=== PATIENT | male | born 1980 | race Caucasian/White ===

== ENCOUNTER 2023-06-16 18:11 | Emergency (ER) | payer OTHER, SELFPAY ==
[2023-06-16 18:15] VITALS: PULSE 104; RESP 18; TEMP 36.9; O2SAT 96; BMI 29.5
--- NOTE | 2023-06-16 18:23 | XR_ITS ---
[facility] [place] [id number] Patient Name: CIARAN HATCH MRN: [id number] date: 1980 Sex: M Assigned Patient Location: ER Current Patient Location: ED.MAIN Accession/Order Number: [id number] Exam Date: 06/16/2023 18:35 Report Date: 06/16/2023 19:27 At the request of: HODAN STEELE Procedure: XR finger RT min 2V STUDY: XR finger RT min 2V, [id number] HISTORY: laceration COMPARISON: None FINDINGS: No acute fracture, dislocation, or suspicious osseous lesion. No radiopaque foreign body. XR/XR finger RT min 2V IMPRESSION: No acute osseous abnormality. Electronically authenticated by: MIKEY BARLOW Date: 06/16/2023 19:27
--- NOTE | 2023-06-16 18:24 | ED_ITS ---
Documented by User: DUSTIN Benoit 06/16/23 20:01 HPI - Wound/Laceration General Chief Complaint: Wound/Laceration Stated Complaint: HAND LACERATION Time Seen by Provider: 06/16/23 18:13 Source: patient Mode of arrival: walk-in Limitations: no limitations History of Present Illness HPI narrative: patient is a 42-year-old male who presents the emergency department for the evaluation of a laceration of the right hand over the 1st MCP joint. Just prior to arrival, patient was working on his camper when he lacerated the dorsum of the joint. Bleeding is well-controlled at this time. He did sustain an abrasion to the left hand. He is left-hand dominant. Unknown last tetanus. No other associated injuries. Related Data Allergies Allergy/AdvReac Type Severity Reaction Status Date / Time hydrocodone Allergy Mild Hives Verified 06/16/23 18:17 antihistamines Allergy Mild Uncoded 06/16/23 18:17 Review of Systems ROS Constitutional Denies: fever or chills Respiratory Denies: shortness of breath Gastrointestinal Denies: vomiting Musculoskeletal Denies: back pain Integumentary/Breast Denies: rash Endocrine Denies: excessive urination Hematologic/Lymphatic Denies: easy bruising Exam Narrative Exam Narrative: Gen.: Awake, alert, in no distress Head: Normocephalic, atraumatic ENT: Moist mucous membranes Respiratory: No respiratory distress Extremities: Moves extremities equally, abrasion noted to the dorsum of the left hand with no deep laceration, right 1st MCP joint with a 1.5 cm laceration that is well approximated extending proximally to distally over the 1st MCP joint/dorsal aspect of the hand. Normal flexion and extension at the MCP and IP joints. No subcutaneous tissue visualized, no active bleeding Psych: Normal mood and affect Neuro: No focal neuro deficit Skin: Warm, dry Constitutional Vital Signs, click to edit/add: Last Vital Signs Temp 98.5 F 06/16/23 18:15 Pulse 104 H 06/16/23 18:15 Resp 18 06/16/23 18:15 Pulse Ox 96 06/16/23 18:15 O2 Del Method Room Air 06/16/23 18:15 Course Vital Signs Vital signs: Vital Signs Temperature 98.5 F 06/16/23 18:15 Pulse Rate 104 H 06/16/23 18:15 Respiratory Rate 18 06/16/23 18:15 Pulse Oximetry 96 06/16/23 18:15 Oxygen Delivery Method Room Air 06/16/23 18:15 Temperature 98.5 F 06/16/23 18:15 Pulse Rate 104 H 06/16/23 18:15 Respiratory Rate 18 06/16/23 18:15 Pulse Oximetry 96 06/16/23 18:15 Oxygen Delivery Method Room Air 06/16/23 18:15 MDM - Wound/Laceration MDM Narrative Medical decision making narrative: x-rays of the finger with no evidence of acute abnormalities. Laceration was repaired without difficulty to the right hand, please see procedure note for details. Sutures removed in 8-10 days with PCP. Abrasion to the left hand was cleansed and dressed with bacitracin, Band-Aid. return to the Emergency Room if symptoms change or worsen Laceration repair: Done under sterile conditions. The use of Shur-Clens prep the area. Local injection with lidocaine 1% was used, approximately 3 cc. The wound was irrigated copiously with normal saline. The wound was explored there was no evidence of foreign material. The laceration was approximated with 4-0 nylon. 2 simple interrupted sutures were placed. Patient tolerated the procedure well. The patient was neurovascularly intact post. the patient had bacitracin applied to the laceration and a dry sterile dressing was place. The patient will need to follow-up in the next 8-10 days for removal Discharge Plan Discharge Chief Complaint: Wound/Laceration Clinical Impression: Abrasion of left hand, Laceration of right thumb Patient Disposition: Home, Self-Care Time of Disposition Decision: 19:56 Condition: Good Instructions: Laceration (ED), Abrasion (ED) Additional Instructions: Keep sutures clean with antibiotic ointment and dressing; sutures removed in 8-10 days with PCP Stand Alone Forms: Portal Instructions Referrals: ELROY VIVAS [Primary Care Provider] - 1 week Discharge Date/Time: 06/16/23 20:21 Documented by User: Augusto Toure MD 06/27/23 16:00 HPI - Wound/Laceration General Chief Complaint: Wound/Laceration Stated Complaint: HAND LACERATION Time Seen by Provider: 06/16/23 18:13 Related Data Allergies Allergy/AdvReac Type Severity Reaction Status Date / Time hydrocodone Allergy Mild Hives Verified 06/16/23 18:17 antihistamines Allergy Mild Uncoded 06/16/23 18:17 Exam Constitutional Vital Signs, click to edit/add: Last Vital Signs Temp 98.5 F 06/16/23 18:15 Pulse 104 H 06/16/23 18:15 Resp 18 06/16/23 18:15 Pulse Ox 96 06/16/23 18:15 O2 Del Method Room Air 06/16/23 18:15 Course Vital Signs Vital signs: Vital Signs Temperature 98.5 F 06/16/23 18:15 Pulse Rate 104 H 06/16/23 18:15 Respiratory Rate 18 06/16/23 18:15 Pulse Oximetry 96 06/16/23 18:15 Oxygen Delivery Method Room Air 06/16/23 18:15 Temperature 98.5 F 06/16/23 18:15 Pulse Rate 104 H 06/16/23 18:15 Respiratory Rate 18 06/16/23 18:15 Pulse Oximetry 96 06/16/23 18:15 Oxygen Delivery Method Room Air 06/16/23 18:15 MDM - Wound/Laceration MDM Narrative Medical decision making narrative: x-rays of the finger with no evidence of acute abnormalities. Laceration was repaired without difficulty to the right hand, please see procedure note for details. Sutures removed in 8-10 days with PCP. Abrasion to the left hand was cleansed and dressed with bacitracin, Band-Aid. return to the Emergency Room if symptoms change or worsen Laceration repair: Done under sterile conditions. The use of Shur-Clens prep the area. Local injection with lidocaine 1% was used, approximately 3 cc. The wound was irrigated copiously with normal saline. The wound was explored there was no evidence of foreign material. The laceration was approximated with 4-0 nylon. 2 simple interrupted sutures were placed. Patient tolerated the procedure well. The patient was neurovascularly intact post. the patient had bacitracin applied to the laceration and a dry sterile dressing was place. The patient will need to follow-up in the next 8-10 days for removal I, Dr Toure, have reviewed the above progress note and course of action in the ER; agree with the above. I have personally seen and evaluated this patient, gone o patricia history and physical, and discussed disposition and treatment plan with the patient. Discharge Plan Discharge Chief Complaint: Wound/Laceration Clinical Impression: Abrasion of left hand, Laceration of right thumb Patient Disposition: Home, Self-Care Time of Disposition Decision: 19:56 Condition: Good Instructions: Laceration (ED), Abrasion (ED) Additional Instructions: Keep sutures clean with antibiotic ointment and dressing; sutures removed in 8- 10 days with PCP Stand Alone Forms: Portal Instructions Referrals: ELROY VIVAS [Primary Care Provider] - 1 week Discharge Date/Time: 06/16/23 20:21
--- NOTE | 2023-06-16 18:27 | PC.NURSE ---
pt presents to [facility] pt states that he was at home working on his camper and cut himself with a rod piece of metal. pt has small 1 in laceration to right thumb and small abrasion to left thumb. pt wrapped hand in bandage. pt cleaned up with hibicleanse and water on arrival. pt now soaking right hand. bleeding under control at this time.
[2023-06-16] MEDS: ADACEL DIPH,PERTUSS(ACELL),TET VAC/PF 0.5 ML ADULT SYRINGE IM (18:46)
[2023-06-16] MEDS: BACITRACIN 0.9 GM PACKET 1 PACKET TOPICAL ×2 (18:47→20:20)
== END 2023-06-16 20:21 | disposition home or self-care (01) ==
PROVIDERS: Emergency Provider Emergency Medicine; PCP Family Medicine
DX: S61.011A Laceration without foreign body of right thumb without damage to nail, initial encounter (principal); S60.512A Abrasion of left hand, initial encounter; Z23 Encounter for immunization; W26.8XXA Contact with other sharp object(s), not elsewhere classified, initial encounter
CPT/HCPCS: 12001; 73140; 90471; 90715; 99281

== ENCOUNTER 2024-09-06 14:58 | Emergency (ER) | payer OTHER, SELFPAY ==
[2024-09-06 14:59] VITALS: BP 170/100; PULSE 59; TEMP 36.6; O2SAT 98; BMI 28.7
--- NOTE | 2024-09-06 15:06 | ECG_ITS ---
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
--- NOTE | 2024-09-06 15:15 | ED_ITS ---
HPI HPI - General Adult General Chief complaint: Abdominal Pain Stated complaint: GENERAL WEAKNESS Time Seen by Provider: 09/06/24 15:00 Source: patient Mode of arrival: ambulance Limitations: no limitations History of Present Illness HPI narrative: 44-year-old male presents for nausea vomiting and abdominal pain. It began about 2:00 this morning. No hematemesis. The pain is severe and continuous. He reports she has had multiple hernia repairs and he has been taking Pepto- Bismol today. Related Data Previous Rx's ?Medication ?Instructions ?Recorded ondansetron 4 mg disintegrating 4 mg PO Q6H PRN nausea and 09/06/24 tablet vomiting #10 tabs Allergies Allergy/AdvReac Type Severity Reaction Status Date / Time hydrocodone Allergy Mild Hives Verified 09/06/24 15:04 antihistamines Allergy Mild Hives Uncoded 09/06/24 15:04 Opioid HPI Opioid Management Most Recent Opioid Data: No Data to Display Review of Systems ROS Narrative A ten point review of systems is negative except as noted above. PFSH PFSH Social History Little interest or pleasure in doing things: not at all Feeling down, depressed, or hopeless: not at all Exam Narrative Exam Narrative: Nurses note and vital signs reviewed and patient is not hypoxic. General: The patient is vomiting when I walk into the room. No respiratory distress. Skin: Warm, dry, no pallor noted. There is no rash noted. Head: Normocephalic, atraumatic Eye: Normal conjunctiva, no drainage Ears, Nose, Mouth, and Throat: oral mucosa is moist. Nares patent. Mouth without vesicles. Ear canals patent. Tm's without Erythema Cardiovascular: Regular Rate and Rhythm Respiratory: Patient is in no distress, no accessory muscle use, lungs are clear to auscultation, no wheezing, rales or rhonchi Back: non-tender, no CVA tenderness bilaterally to percussion. GI: Normal bowel sounds, mild diffuse tenderness on palpation. No distention. Musculoskeletal: The patient has no evidence of calf tenderness, no pitting edema, symmetrical pulses noted bilaterally Neurological: A&O, normal speech Psychiatric: Cooperative Constitutional Vital Signs, click to edit/add: Last Vital Signs Temp 98 F 09/06/24 14:59 Pulse 59 L 09/06/24 14:59 Resp 20 09/06/24 14:59 BP 170/100 H 09/06/24 14:59 Pulse Ox 98 09/06/24 14:59 O2 Del Method Room Air 09/06/24 14:59 Course Vital Signs Vital signs: Vital Signs Temperature 98 F 09/06/24 14:59 Pulse Rate 59 L 09/06/24 14:59 Respiratory Rate 20 09/06/24 14:59 Blood Pressure 170/100 H 09/06/24 14:59 Pulse Oximetry 98 09/06/24 14:59 Oxygen Delivery Method Room Air 09/06/24 14:59 Temperature 98 F 09/06/24 14:59 Pulse Rate 59 L 09/06/24 14:59 Respiratory Rate 20 09/06/24 14:59 Blood Pressure 170/100 H 09/06/24 14:59 Pulse Oximetry 98 09/06/24 14:59 Oxygen Delivery Method Room Air 09/06/24 14:59 Medical Decision Making MDM Narrative Medical decision making narrative: His workup including CT of the abdomen is negative. He feels much better now and is tolerating p.o. liquids and is discharged home with a prescription for Zofran. Treatment diagnosis and follow-up were discussed with the patient. Differential Diagnosis Differential Diagnosis: Gastroenteritis, dehydration, small bowel obstruction Lab Data Lab results reviewed: Yes I reviewed the patient's lab results Labs: Lab Results 09/06/24 Range/Units 15:10 WBC 16.3 H (4.0-11.0) 10^3/uL RBC 5.87 (4.70-6.10) 10^6/uL Hgb 16.0 (14.0-18.0) g/dL Hct 48.4 (42.0-54.0) % MCV 82.5 (80.0-94.0) fL MCH 27.3 (25.9-34.0) pg MCHC 33.1 (29.9-35.2) g/dL RDW 15.9 H (11.0-15.0) % Plt Count 313 (150-450) 10^3/uL MPV 10.0 (9.5-13.5) fL Neut % (Auto) 89.0 H (43.0-75.0) % Lymph % (Auto) 7.8 L (20.5-60.0) % [place] % (Auto) 2.6 (1.7-12.0) % Eos % (Auto) 0.0 L (0.9-7.0) % Baso % (Auto) 0.1 L (0.2-2.0) % Neut # (Auto) 14.5 H (1.4-6.5) 10^3/uL Lymph # (Auto) 1.3 (1.2-3.8) 10^3/uL [place] # (Auto) 0.4 (0.3-0.8) 10^3/uL Eos # (Auto) 0.0 (0.0-0.7) 10^3/uL Baso # (Auto) 0.0 (0.0-0.1) 10^3/uL Abs Immat Gran (auto) 0.08 H (0.00-0.03) 10^3/uL Imm/Tot Granulo (auto) 0.5 (0.0-0.5) % Sodium 143 (136-145) mmol/L Potassium 3.8 (3.5-5.1) mmol/L Chloride 105 (98-107) mmol/L Carbon Dioxide 24.7 (21.0-32.0) mmol/L Anion Gap 17.1 BUN 19.0 H (7.0-18.0) mg/dL Creatinine 1.37 H (0.70-1.30) mg/dL Est GFR ( Amer) >60 (>=60 mL/min/1.73m^2) Est GFR (Non-Af Amer) 57 L (>=60 mL/min/1.73m^2) BUN/Creatinine Ratio 13.9 Glucose 130 H (74-106) mg/dL Calcium 10.2 H (8.5-10.1) mg/dL Total Bilirubin 0.7 (0.2-1.0) mg/dL Direct Bilirubin 0.2 (0.0-0.2) mg/dL AST 23 (15-37) U/L ALT 48 (16-63) U/L Alkaline Phosphatase 132 H (46-116) U/L Total Protein 8.4 H (6.4-8.2) g/dL Albumin 4.4 (3.4-5.0) g/dL Globulin 4.0 g/dL Albumin/Globulin Ratio 1.1 Amylase 79 (25-115) U/L Lipase 65.0 (16.0-77.0) U/L Imaging Data CT scan - abdomen: Radiologist's impression: ITS Impressions Abdomen/Pelvis CT 09/06/24 16:08 IMPRESSION: No acute abnormality lower chest, abdomen or pelvis. Electronically authenticated by: BRENNEN TAMAYO Date: 09/06/2024 17:54 Discharge Plan Discharge Chief Complaint: Abdominal Pain Clinical Impression: Nausea and vomiting Patient Disposition: Home, Self-Care Time of Disposition Decision: 18:02 Condition: Good Mode of Transportation: Private Vehicle Prescriptions / Home Meds: New ondansetron 4 mg tablet,disintegrating 4 mg PO Q6H PRN (Reason: nausea and vomiting) Qty: 10 0RF Print Language: Khmer Instructions: Acute Nausea and Vomiting (ED) Referrals: ELROY VIVAS [Primary Care Provider] - 1 week
[2024-09-06] MEDS: 0.9 % SODIUM CHLORIDE 1,000 ML 1000 ML IV (15:22)
[2024-09-06] MEDS: ONDANSETRON PF 4 MG/2 ML VIAL IV ×2 (15:22→17:38)
[2024-09-06 15:26] LABS: Basophils Percent Auto 0.1 % (0.2-2.0); Hematocrit 48.4 % (42.0-54.0); Immature Granulocytes Abs Auto 0.08 10^3/uL (0.00-0.03); Immature Granulocytes Pct Auto 0.5 % (0.0-0.5); Lymphocytes Absolute Auto 1.3 10^3/uL (1.2-3.8); Lymphocytes Percent Auto 7.8 % (20.5-60.0); Mean Corpuscular HGB Conc 33.1 g/dL (29.9-35.2); Mean Corpuscular Hemoglobin 27.3 pg (25.9-34.0); Mean Corpuscular Volume 82.5 fL (80.0-94.0); Monocytes Absolute Auto 0.4 10^3/uL (0.3-0.8); Monocytes Percent Auto 2.6 % (1.7-12.0); Neutrophils Absolute Auto 14.5 10^3/uL (1.4-6.5); Platelet Count 313 10^3/uL (150-450); Red Blood Count 5.87 10^6/uL (4.70-6.10); Red Cell Distribution Width 15.9 % (11.0-15.0); White Blood Count 16.3 10^3/uL (4.0-11.0)
[2024-09-06 15:30] LABS: Anion Gap 17.1; BUN Creatinine Ratio 13.9; Calcium 10.2 mg/dL (8.5-10.1); Carbon Dioxide 24.7 mmol/L (21.0-32.0); Chloride 105 mmol/L (98-107); Estimated GFR (African America >60 (>=60 mL/min/1.73m^2); Estimated GFR (Non-African Ame 57 (>=60 mL/min/1.73m^2); Glucose 130 mg/dL (74-106); Potassium 3.8 mmol/L (3.5-5.1); Sodium 143 mmol/L (136-145)
[2024-09-06 15:35] LABS: Alanine Aminotransferase 48 U/L (16-63); Albumin Globulin Ratio 1.1; Albumin Level 4.4 g/dL (3.4-5.0); Alkaline Phosphatase 132 U/L (46-116); Amylase 79 U/L (25-115); Aspartate Amino Transferase 23 U/L (15-37); Bilirubin Direct 0.2 mg/dL (0.0-0.2); Bilirubin Total 0.7 mg/dL (0.2-1.0); Total Protein 8.4 g/dL (6.4-8.2)
--- NOTE | 2024-09-06 16:08 | CT_ITS ---
The [address] [place], [place] [address] Patient Name: CIARAN HATCH MRN: [id number] date: 1980 Sex: M Assigned Patient Location: ER Current Patient Location: ER Accession/Order Number: [id number] Exam Date: 09/06/2024 16:57 Report Date: 09/06/2024 17:54 At the request of: BUFFY LIGHT Procedure: CT abdomen pelvis w con EXAM: CT abdomen pelvis w con HISTORY: Abdominal pain, elevated WBC, vomiting COMPARISON: None. TECHNIQUE: CT abdomen pelvis with IV contrast 100 mL Omnipaque 300. Axial scans with reformatted coronal sagittal images. Individualized radiation dose reduction used for this exam. FINDINGS: Motion artifact. LOWER CHEST: Lung bases clear, no acute process. ABDOMEN: Diffusely heterogeneous liver with predominant low-density appearance consistent with fatty infiltration. Slightly higher density areas probably reflect areas of focal sparing. No definite mass. Normal-appearing fluid-filled gallbladder. No biliary dilatation. Adrenal glands, pancreas, spleen unremarkable. No ascites or free fluid. No adenopathy. Normal enhancement of aorta and branches. Normal venous enhancement. Kidneys unremarkable without mass or calcification. No hydronephrosis, normal ureters. No bowel dilatation wall thickening or edema. No evidence of ileus or obstruction. Decreased caliber of the left colon and sigmoid colon makes assessment for wall thickening/edema limited. Some high density material possibly barium noted in the right colon. Normal diameter appendix right lower quadrant without surrounding inflammation. Scattered diverticula without diverticulitis. Moderate gas and stool throughout colon. PELVIS no mass or adenopathy or free fluid. Normal-appearing bladder and delayed images demonstrate contrast in the dependent bladder. Normal pelvic ureters. MUSCULOSKELETAL: No suspicious bone lesion. Degenerative changes most prominent L4-5 and L5-S1. CT/CT abdomen pelvis w con IMPRESSION: No acute abnormality lower chest, abdomen or pelvis. Electronically authenticated by: BRENNEN TAMAYO Date: 09/06/2024 17:54
== END 2024-09-06 18:22 | disposition home or self-care (01) ==
PROVIDERS: Emergency Provider Emergency Medicine; PCP Family Medicine
DX: R11.2 Nausea with vomiting, unspecified (principal); R10.9 Unspecified abdominal pain
CPT/HCPCS: 36415; 74177; 80048; 80076; 82150; 83690; 85025; 93005; 96361; 96374; 96376; 99285; J2405; Q9967

== ENCOUNTER 2025-01-21 02:01 | Emergency (ER) | payer OTHER, SELFPAY ==
[2025-01-21 02:02] VITALS: BP 181/119; PULSE 84; TEMP 36.9; O2SAT 100; BMI 31.6
--- OUTSIDE RECORDS SUMMARY | 2025-01-21 02:08 | XMS_ITS | CCD ---
Author Organization [facility] Care Team Providers Care Pacu Nurse Name Role Phone Connor Pineda Primary Care Provider [phone] CAROLE DOMINGUEZ Attending Unavailable CAROLE DOMINGUEZ Referring Unavailable CONNOR PINEDA Primary Care Unavailable DENISE, DR CHAPIN Attending Unavailable DENISE, DR CHAPIN Consulting Unavailable DENISE, DR CHAPIN Admitting Unavailable EDWIN, DR ABBASI Primary Care Unavailable MD Connor Pineda Primary Care Provider MD Donato Jason Attending Provider MD Connor Pineda Primary Care Provider MD Donato Jason Attending Provider Juan C Johnson Unavailable Connor Pineda MD Primary Care Provider Peyman GARCIA, Mona Unavailable Dean GARCIA, Anitra R Unavailable [phone] Kimau W[employer]IT [employer] CONDITIONING MECHANIC, Mable A Unavailable [phone] MD Connor Pineda Primary Care Provider REJI Morley Attending Provider [phone] MD Anastacia Jesus Attending Provider [phone] REJI Morley Referring Provider MONA MORLEY Primary Care Physician [phone] Dean GARCIA Anitra R Unavailable [phone] Peyman [employer]IT AIR CONDITIONING MECHANIC, Mona Unavailable MD Connor Pineda Primary Care Provider [phone] REJI Morley Attending Provider [facility] Meenu Other Provider [phone] Edwin HARRIS, Connor Deleon Primary Care Provider [phone] Michell BAKER, Mona Unavailable Warchol AGRICULTURAL CROP FARM MANAGERMona M Unavailable [phone] EDWIN CONNOR ADRIENNE Primary Care Unavailable MARCELA MAYEN Attending Unavailable PINEDA, CONNOR ADRIENNE Primary Care Unavailable MARCELA MAYEN Referring Unavailable Son [facility] Bennett Unavailable [phone] Dina-Nossek AGRICULTURAL CROP FARM MANAGER-[facility], Kenney Horner Unavailable Connor Pineda MD Primary Care Provider [phone] Ormartin [facility], Meenu Attending Provider Ormartin, Meenu Admitting Unavailable Orzech, Meenu Attending Unavailable Pineda, Connor Primary Care Unavailable Warchol, Mona Attending Unavailable Warchol, Mona Admitting Unavailable Pineda, Connor Primary Care Unavailable Warchol, Mona Admitting Unavailable Warchol, Mona Attending Unavailable Pineda, Connor Primary Care Unavailable Orzech, Meenu Consulting Unavailable Asaad, Imad Admitting Unavailable Asaad, Imad Attending Unavailable Warchol, Mona Referring Unavailable Pineda, Connor Primary Care Unavailable WARCHOL, MONA Referring Unavailable Sukhjinder CLARK Attending Unavailable Orzech, Meenu X Attending Unavailable WARCHOL, MONA Referring Unavailable Orzech, Meenu X Attending Unavailable Orzech, Meenu X Attending Unavailable Orzech, Meenu X Admitting Unavailable Orzech, Meenu X Attending Unavailable Orzech, Meenu X Attending Unavailable Orzech, Meenu X Attending Unavailable Orzech, Meenu X Attending Unavailable Arun HUMMEL Attending Unavailable Orzech, Meenu X Admitting Unavailable Orzech, Meenu X Attending Unavailable Villagomez, Anat Admitting Unavailable Villagomez, Anat Attending Unavailable NONE, XXXX Referring Unavailable WARCHOL, MONA Attending Unavailable GAURAV CLINE Attending Unavailable DINA-KENNEY IGLESIAS Attending Unavailab ANITRA Dawkins Attending Unavailable GAURAV CLINE Attending Unavailable DINA-NOSKENNEY NORMAN Attending Unavailab le WARCHOL, MONA Attending Unavailable WARCHOL, MONA Attending Unavailable WARCHOL, MONA Attending Unavailable WARCHOL, MONA Attending Unavailable DINA-NOSKENNEY NORMAN Attending UnavailGAURAV Bob Referring Unavailable KENNEY DE LA O Attending Unavailab MONA Arreaga Attending Unavailable KENNEY DE LA O Attending Unavailab GAURAV Erickson Attending Unavailable MONA MORLEY Attending Unavailable KENNEY DE LA O Attending Unavailab GAURAV Erickson Attending Unavailable PEYMAN, MONA Attending Unavailable KENNEY DE LA O Attending Unavailab jeanna MORLEY, MONA Attending Unavailable GAURAV CLINE Attending Unavailable Allergies Allergy Classification Reported Allergen(s) Allergy Type Date of Onset Reaction(s) Facility Acetaminophen / HYDROcodone (1 source) Acetaminophen / HYDROcodone Drug Allergy 10-06-19 13 [facility] Repository Unclassified (11 sources) Antihistamines - Alkylamine Drug allergy (disorder) 03-03-20 13 Swelling of Lip/Tongue/Thr oat [facility] Repository (20 sources) HYDROcodone; Translations: [hydrocodone] Drug Allergy 11-05-19 17 Hives, Unknown, Itching, Weal (disorder) [facility] (4 sources) Antihistamines; Translations: [antihistamines] Allergy to substance 10-08-19 23 Swelling of Lip/Tongue/Thr oat [facility] (1 source) Acetaminophen / HYDROcodone Drug Allergy rash [email or web address] [facility] [employer] Other (1 source) diphenhydrAMINE Drug Allergy Unknown [facility] [employer] Other (20 sources) diphenhydrAMINE Drug Allergy 04-16-20 23 Unknown [facility] Work Phone: (20 sources) Antihistamines, Loratadine-Type Propensity to adverse reactions 07-08-20 23 Shortness of breath [facility] (20 sources) Propylamine derivative antihistamine; Translations: [alkylamine antihistamines] Drug Allergy 10-21-19 23 Anaphylaxis (disorder) [facility] (6 sources) Acetaminophen; Translations: [acetaminophen] Drug Allergy 06-27-20 23 rash [facility] (1 source) Antihistamines Allergy to substance 06-27-20 23 [facility] (4 sources) alkylamine antihistamines; Translations: [alkylamine antihistamines] Drug allergy Anaphylaxis (disorder) [facility] (5 sources) Antihistimine; Translations: [ANTIHISTIMINE] Drug Allergy 11-05-19 17 Hives, Anaphylaxis [facility] (1 source) Antihistamines - Alkylamine Drug allergy (disorder) 06-14-20 24 [facility] Repository (2 sources) HYDROcodone; Translations: [HYDROcodone Bitartrate] Drug Allergy [facility] Repository (1 source) Acetaminophen / HYDROcodone; Translations: [Vicodin HP] Drug Allergy [facility] Repository (1 source) traMADol; Translations: [traMADol] Drug Allergy [facility] Repository Medications Current Medications Medication Drug Class(es) Dates Sig (Normalized) Sig (Original) Tylenol (1 source) Start: 12-15-2024 Tylenol Oral, PRN as needed for pain, Refills(s) 0 Start Date: 12/15/24 Status: Ordered azelastine hydrochloride 0.137 mg/actuat metered dose nasal spray (16 sources) Histamine-1 Receptor Antagonist Start: 04-25-2022 Azelastine 137 mcg (0.1 %) aerosol,spray Active 1 SPRAY INTRANASAL Daily as needed for allergies April 24, 2022 11:00pm Start: 01-03-2020 azelastine hyd rochloride 137 mcg spray = 1 spray(s), Nasal, BID, Refills(s) 0 Start Date: 01/03/20 Status: Ordered docusate sodium 100 mg oral capsule (3 sources) Start: 02-18-2018 take 1 capsule by mouth twice daily docusate sodium (COLACE) 100 mg capsule Take 1 capsule by mouth twice daily. 30 capsule 02/18/2018 Active doxycycline hyclate 100 mg oral capsule (1 source) Tetracycline-cla ss Drug Start: 12-13-2024 End: 01-10-2025 take 1 capsule by mouth twice daily doxycycline hyclate 100 mg Cap 100 mg = 1 cap(s), Oral, BID, may substitute hyclate for monohydrate based on availability, X 4 week(s), # 56 cap(s), Refills(s) 0, Pharmacy: [facility]/pharmacy #[id number], 169.5, cm, 12/13/24 15:52:00 EDT, Height/Length Dosing, 90.9, kg, 12/13/24 15:52:00 EDT, Weight Dosing Start Date: 12/13/24 Stop Date: 01/10/25 Status: Ordered ergocalciferol 1.25 mg oral capsule (7 sources) Provitamin D2 Compound Start: 05-13-2024 Ergocalciferol (Vitamin D2) 1,250 mcg (50,000 unit) capsule Active 17597 UNIT PO every week May 12, 2024 11:00pm Start: 05-13-2024 take 57079 [IU] by m outh every week Ergocalciferol (Vitamin D2) Active 64285 UNIT PO every week May 13, 2024 12:00am Start: 03-22-2024 End: 06-20-2024 take 1 capsule by mouth every week ergocalciferol (Vitamin D2) 1.25 MG (63956 UT) capsule Indications: Hypovitaminosis D Take 1 capsule (1.25 mg) by mouth 1 (one) time per week 12 capsule 03/22/2024 06/20/2024 Active famotidine 40 mg oral tablet (14 sources) Histamine-2 Receptor Antagonist Start: 04-25-2022 End: 01-04-2024 take 1 tablet by mouth once daily at bedtime Famotidine 40 mg tablet Active 40 MG PO Daily at bedtime April 24, 2022 11:00pm fluticasone propionate 0.05 mg/actuat metered dose nasal spray (20 sources) Corticosteroid Start: 03-09-2024 End: 11-16-2025 take 2 spray(s) nasal route once daily fluticasone (Flonase) 50 MCG/ACT nasal spray Indications: Seasonal allergic rhinitis due to pollen Administer 2 sprays into each nostril Daily Shake gently. Before first use, prime pump. After use, clean tip and replace cap. 16 g 11 11/16/2024 11/16/2025 Active Start: 07-08-2023 End: 01-04-2024 take 2 spray(s) nasal route in the morning fluticasone (Flonase) 50 MCG/ACT nasal spray Indications: Seasonal allergic rhinitis due to pollen Administer 2 sprays into each nostril in the morning. Shake gently. Before first use, prime pump. After use, clean tip and replace cap.. 16 g 5 07/08/2023 01/04/2024 Active Start: 04-25-2022 Fluticasone Pr opionate 50 mcg/actuation spray,suspension Active 1 SPRAY INTRANASAL Daily as needed for allergies April 24, 2022 11:00pm Start: 01-03-2020 Flonase 50 vero rogram, Nasal, Daily, Refill(s) 0 Start Date: 01/03/20 Status: Ordered gabapentin 800 mg oral tablet (20 sources) Anti-epileptic Agent Start: 12-15-2024 take 1 tablet by mouth in the morning, then take 1 tablet by mouth in the evening, then take 1 tablet by mouth at bedtime gabapentin (Neurontin) 800 MG tablet Take 800 mg by mouth in the morning and 800 mg in the evening and 800 mg before bedtime. 12/15/2024 Active Start: 05-17-2024 End: 02-14-2025 take 1 tablet by mouth in the morning, then take 1 tablet by mouth in the evening, then take 1 tablet by mouth at bedtime gabapentin (Neurontin) 600 MG tablet Indications: Lumbar degenerative disc disease Take 1 tablet (600 mg) by mouth in the morning and 1 tablet (600 mg) in the evening and 1 tablet (600 mg) before bedtime. 90 tablet 2 11/16/2024 01/04/2025 Discontinued (Therapy completed) Start: 09-25-2023 End: 12-24-2023 take 1 tablet by mouth in the morning gabapentin (Neurontin) 600 MG tablet Indications: Acute right-sided low back pain with right-sided sciatica , Lumbar degenerative disc disease Take 1 tablet (600 mg) by mouth in the morning and 1 tablet (600 mg) before bedtime. 60 tablet 2 09/25/2023 12/24/2023 Active Start: 10-08-2022 take 2 capsules by m outh twice daily Gabapentin 300 mg capsule Active 600 MG PO Twice daily October 08, 2022 12:00am Start: 10-08-2022 take 600 mg by mouth twice cassidy ly Gabapentin Active 600 MG PO Twice daily October 08, 2022 1:00am Start: 10-08-2022 take 300 mg by mouth twice cassidy ly Gabapentin Active 300 MG PO Twice daily October 08, 2022 1:00am Start: 04-25-2022 End: 10-08-2022 take 1 capsule by mouth twice daily Gabapentin 100 mg capsule Discontinued 100 MG PO Twice daily April 25, 2022 1:42pm October 08, 2022 2:05pm Start: 08-19-2019 End: 08-19-2019 take 1 capsule by mouth three times daily Gabapentin 100 mg capsule Discontinued 100 MG PO Three times daily August 19, 2019 12:00am August 19, 2019 5:04pm Start: 11-30-2018 End: 04-25-2022 take 1 capsule by mouth once daily Gabapentin 100 mg Capsule Discontinued 100 MG PO Daily August 23, 2019 12:00am April 25, 2022 1:43pm hydroCHLOROthiazide 25 mg / losartan potassium 100 mg oral tablet (20 sources) Thiazide Diuretic, Angiotensin 2 Receptor Emigdio Start: 03-09-2024 End: 06-18-2025 take 1 tablet by mouth once daily losartan-hydroCHLOROthiazide (Hyzaar) 100-25 MG tablet Indications: Essential (primary) hypertension (CMS/HCC) Take 1 tablet by mouth Daily 90 tablet 1 12/20/2024 06/18/2025 Active Start: 09-25-2023 End: 12-24-2023 take 1 tablet by mouth in the morning losartan-hydroCHLOROthiazide (Hyzaar) 10 0-25 MG tablet Indications: Essential (primary) hypertension (CMS/HCC) Take 1 tablet by mouth in the morning. 90 tablet 0 09/25/2023 12/24/2023 Active hydrOXYzine pamoate 50 mg oral capsule (20 sources) Antihistamine Start: 10-04-2024 End: 11-11-2024 take 1 capsule by mouth twice daily as needed for anxiety hydrOXYzine pamoate (Vistaril) 50 MG capsule Indications: Anxiety Take 1 capsule (50 mg) by mouth 2 (two) times a day as needed for anxiety 60 capsule 10/12/2024 Active Start: 10-30-2023 End: 11-29-2023 hydrOXYzine pamoate (Vistari l) 50 MG capsule Indications: Anxious depression Take 1 capsule (50 mg) by mouth every 8 (eight) hours if needed for anxiety May take 1-2 capsules as needed. 90 capsule 0 10/30/2023 11/29/2023 Active losartan potassium 50 mg oral tablet (20 sources) Angiotensin 2 Receptor Emigdio Start: 10-08-2022 End: 06-18-2025 take 1 tablet by mouth once daily losartan (Cozaar) 50 MG tablet Indications: Hypertensive heart disease without heart failure (CMS/HCC) Take 1 tablet (50 mg) by mouth Daily 90 tablet 1 12/20/2024 06/18/2025 Active Start: 01-03-2020 take 1.5 tablets by mouth once daily losartan 100 mg, Oral, Daily, take 1.5 tabs daily, Refills(s) 0 Start Date: 01/03/20 Status: Ordered Start: 03-14-2018 End: 10-08-2022 take 4 tablets by mouth once daily in the morning Losartan 25 mg Tablet Discontinued 100 MG PO Every morning March 13, 2018 11:00pm October 08, 2022 2:04pm Start: 03-14-2018 End: 10-08-2022 take 100 mg by mouth once daily in the morning Losartan Discontinued 100 MG PO Every morning March 14, 2018 12:00am October 08, 2022 3:04pm Start: 02-25-2018 take 1 tablet by garcia once daily losartan (COZAAR) 25 mg tablet Take 25 mg by mouth once daily. 0 02/25/2018 Active methocarbamol 750 mg oral tablet (20 sources) Muscle Relaxant Start: 05-17-2024 End: 03-20-2025 take 1 tablet by mouth four times daily as needed for muscle spasms methocarbamol (Robaxin) 750 MG tablet Indications: Strain of left trapezius muscle, sequela Take 1 tablet (750 mg) by mouth 4 (four) times a day as needed for muscle spasms 120 tablet 12/20/2024 03/20/2025 Active Start: 09-25-2023 End: 12-24-2023 take 1 tablet by mouth four times daily as needed for muscle spasms methocarbamol (Robaxin) 750 MG tablet Indications: Right inguinal pain Take 1 tablet (750 mg) by mouth 4 (four) times a day as needed for muscle spasms for up to 5 days 20 tablet 0 11/13/2023 11/18/2023 Active omeprazole 40 mg delayed release oral capsule (20 sources) Proton Pump Inhibitor Start: 06-14-2024 End: 11-16-2025 take 1 capsule by mouth in the morning omeprazole (PriLOSEC) [address] capsule Indications: Gastroesophageal reflux disease without esophagitis Take 1 capsule (40 mg) by mouth in the morning and 1 capsule (40 mg) in the evening. Take before meals. 180 capsule 1 12/20/2024 06/18/2025 Active predniSONE 20 mg oral tablet (13 sources) Start: 11-16-2024 predniSONE (De ltasone) 20 MG tablet Indications: Degeneration of intervertebral disc of lumbar region with discogenic back pain and lower extremity pain Take two tablets (40 mg) daily for five days, then take one tablet (20 mg) daily for five days. Take with food. 15 tablet 11/16/2024 Active Start: 05-17-2024 End: 06-16-2024 predniSONE (Deltasone) 20 MG tablet Indications: Lumbar degenerative disc disease , Cervical radiculopathy , Acute right-sided low back pain with right-sided sciatica Take two tablets (40 mg) daily for five days, then take one tablet (20 mg) daily for five days. Take with food. 15 tablet 05/17/2024 06/16/2024 Discontinued (Therapy completed) Start: 09-01-2023 predniSONE (De ltasone) 20 MG tablet Indications: Acute right-sided low back pain with right-sided sciatica Take two tablets (40 mg) daily for five days, then take one tablet (20 mg) daily for five days. Take with food. 15 tablet 0 09/01/2023 Active QUEtiapine 25 mg oral tablet (20 sources) Atypical Antipsychotic Start: 01-04-2025 End: 02-03-2025 take 1 tablet by mouth every twenty-four hours as needed for anxiety and anxiety QUEtiapine (SEROquel) 25 MG tablet Indications: Anxiety Take 1 tablet (25 mg) by mouth Daily as needed (severe anxiety) 30 tablet 1 01/04/2025 02/03/2025 Active Start: 10-04-2024 End: 02-03-2025 take 1 tablet by mouth at bedtime QUEtiapine (SEROquel) 300 MG tablet Indications: Bipolar 1 disorder (CMS/HCC) Take 1 tablet (300 mg) by mouth at bedtime 30 tablet 1 11/30/2024 01/04/2025 Discontinued (Reorder) Start: 04-14-2024 End: 09-26-2024 take 1 tablet by mouth at bedtime QUEtiapine (SEROquel) 200 MG tablet Indications: Bipolar 1 disorder (CMS/HCC) Take 1 tablet (200 mg) by mouth at bedtime 30 tablet 06/16/2024 07/16/2024 Active Start: 07-08-2023 End: 05-13-2024 take 1 tablet by mouth at bedtime Quetiapine 25 mg tablet Discontinued 25 MG PO Bedtime July 29, 2023 11:00pm May 13, 2024 8:50am Start: 04-25-2022 take 2 tablets by mo uth once daily at bedtime Quetiapine 100 mg tablet Active 200 MG PO Daily at bedtime April 24, 2022 11:00pm Start: 04-25-2022 take 200 mg by mouth once daily at bedtime Quetiapine Active 200 MG PO Daily at bedtime April 25, 2022 12:00am Start: 04-25-2022 End: 01-04-2024 take 1 tablet by mouth at bedtime QUEtiapine (SEROquel) 100 MG tablet Indications: Anxious depression Take 1 tablet (100 mg) by mouth at bedtime. 90 tablet 1 07/08/2023 01/04/2024 Active Start: 08-23-2019 End: 04-25-2022 take 50 mg by mouth at bedtime Seroquel 50 mg, Oral, B edtime, Refills(s) 0 Start Date: 01/03/20 Status: Ordered Start: 08-23-2019 End: 04-25-2022 take 1 tablet by mouth twice daily Quetiapine 25 mg Tablet Discontinued 25 MG PO Twice Daily at 0900 and 1400 60 August 23, 2019 12:00am April 25, 2022 1:38pm Start: 08-19-2019 End: 04-25-2022 take 1 tablet by mouth at bedtime Quetiapine 200 mg tablet Discontinued 200 MG PO Bedtime August 23, 2019 12:00am April 25, 2022 1:38pm Start: 03-14-2018 End: 08-19-2019 take 4 tablets by mouth at bedtime Quetiapine 50 mg Tablet Discontinued 200 MG PO Bedtime March 13, 2018 11:00pm August 19, 2019 5:04pm Start: 03-14-2018 End: 08-19-2019 take 200 mg by mouth at bedtime Quetiapine Discontinue d 200 MG PO Bedtime March 14, 2018 12:00am August 19, 2019 6:04pm take 1 tablet by garcia once daily at bedtime quetiapine fumarate (SEROQUEL ORAL) Take 1 tablet by mouth daily at bedtime. Active rosuvastatin calcium 20 mg oral tablet (20 sources) HMG-CoA Reductase Inhibitor Start: 03-22-2024 End: 11-16-2025 take 1 tablet by mouth at bedtime rosuvastatin (Crestor) 20 MG tablet Indications: Mixed hyperlipidemia (CMS/HCC) Take 1 tablet (20 mg) by mouth at bedtime 90 tablet 1 12/20/2024 06/18/2025 Active Sod Picosulf-Mag Ox-Citric Ac (4 sources) Start: 04-29-2024 Sod Picosulf-M ag Ox-Citric Ac (Clenpiq) 10 mg-3.5 gram- 12 gram/175 mL solution Active 175 ML PO Daily 350 April 28, 2024 11:00pm take first dose at 3:00 PM followed by four 8oz glasses of liquid take second dose at 9:00 PM followed by 3 8oz glasses of liquid Start: 04-29-2024 Sod Picosulf-M ag Ox-Citric Ac (Clenpiq) 10 mg-3.5 gram- 12 gram/175 mL solution Active 175 ML PO Daily 350 April 29, 2024 12:00am take first dose at 3:00 PM followed by four 8oz glasses of liquid take second dose at 9:00 PM followed by 3 8oz glasses of liquid tamsulosin hydrochloride 0.4 mg oral capsule (20 sources) alpha-Adrenergic Emigdio Start: 12-13-2024 take 1 capsule by mouth twice daily tamsulosin 0.4 mg Cap 0.4 mg = 1 cap(s), Oral, BID, # 60 cap(s), Refills(s) 11, Pharmacy: [facility]/pharmacy #[id number], 169.5, cm, 12/13/24 15:52:00 EDT, Height/Length Dosing, 90.9, kg, 12/13/24 15:52:00 EDT, Weight Dosing Start Date: 12/13/24 Status: Ordered Start: 07-13-2024 take 1 capsule by mo [facility] twice daily tamsulosin 0.4 mg Cap 0.4 mg = 1 cap(s), Oral, BID, # 30 cap(s), Refills(s) 11, Pharmacy: [facility]/pharmacy #[id number], 169.5, cm, 07/13/24 15:11:00 EDT, Height/Length Dosing, 90.9, kg, 07/13/24 15:11:00 EDT, Weight Dosing Start Date: 07/13/24 Status: Ordered Start: 07-30-2023 End: 11-16-2025 take 1 capsule by mouth once daily tamsulosin (Flomax) 0.4 MG 24 hr capsule Indications: Benign prostatic hyperplasia with incomplete bladder emptying Take 1 capsule (0.4 mg) by mouth Daily 90 capsule 1 12/20/2024 06/18/2025 Active Start: 07-08-2023 End: 01-04-2024 take 1 capsule by mouth every twenty-four hours in the morning tamsulosin (Flomax) 0.4 MG 24 hr capsule Indications: Benign prostatic hyperplasia with incomplete bladder emptying Take 1 capsule (0.4 mg) by mouth in the morning. 90 capsule 1 07/08/2023 01/04/2024 Active traMADol hydrochloride 50 mg oral tablet (4 sources) Opioid Agonist Start: 11-16-2024 End: 11-21-2024 take 1 tablet by mouth every six hours for pain traMADol (Ultram) 50 MG tablet Indications: Degeneration of intervertebral disc of lumbar region with discogenic back pain and lower extremity pain Take 1 tablet (50 mg) by mouth every 6 (six) hours if needed for severe pain for up to 5 days 20 tablet 11/16/2024 11/21/2024 Active Start: 11-13-2023 End: 11-18-2023 take 1 tablet by mouth every six hours for pain traMADol (Ultram) 50 MG tablet Indications: Right inguinal pain Take 1 tablet (50 mg) by mouth every 6 (six) hours if needed for severe pain for up to 5 days 20 tablet 0 11/13/2023 11/18/2023 Active traZODone hydrochloride 50 mg oral tablet (7 sources) Serotonin Reuptake Inhibitor Start: 11-30-2024 End: 01-04-2026 traZODone (Desyrel) 50 MG tablet Indications: Insomnia, unspecified type Take 1 tablet (50 mg) by mouth as needed at bedtime for sleep 30 tablet 1 01/04/2025 01/04/2026 Active 24 hr venlafaxine 150 mg extended release oral capsule (4 sources) Serotonin and Norepinephrine Reuptake Inhibitor Start: 10-30-2023 End: 11-29-2023 take 1 capsule by mouth every twenty-four hours in the morning venlafaxine XR (Effexor XR) 150 MG 24 hr capsule Indications: Mixed anxiety depressive disorder Take 1 capsule (150 mg) by mouth in the morning. Do not crush or chew.. 30 capsule 0 10/30/2023 11/29/2023 Active Completed/Discontinued Medications Medication Drug Class(es) Dates Sig (Normalized) Sig (Original) acetaminophen 325 mg / oxyCODONE hydrochloride 5 mg oral tablet (16 sources) Opioid Agonist Start: 10-21-2022 End: 07-30-2023 take 1 tablet by mouth every six hours as needed for pain Oxycodone-Acetamino phen 5-325 mg tablet Discontinued 1 TAB PO Q6H as needed for pain 02 05October 21, 2022 July 30, 2023 9:24am Start: 03-14-2018 End: 04-25-2022 take 1 tablet by mouth every four to six hours as needed for pain Oxycodone-Acetaminophen (Percocet) 5-325 mg tablet Discontinued 1 TAB PO EVERY 4-6 HOURS as needed for pain March 14, 2018 April 25, 2022 1:43pm amLODIPine 5 mg oral tablet (10 sources) Dihydropyridine Calcium Channel Emigdio Start: 04-25-2022 End: 07-30-2023 take 1 tablet by mouth once daily at bedtime Amlodipine 5 mg tablet Discontinued 5 MG PO Daily at bedtime April 24, 2022 11:00pm July 30, 2023 9:24am busPIRone hydrochloride 30 mg oral tablet (20 sources) Start: 04-25-2022 End: 05-13-2024 take 1 tablet by mouth twice daily Buspirone 30 mg tablet Discontinued 30 MG PO Twice daily April 24, 2022 11:00pm May 13, 2024 8:48am Start: 08-23-2019 End: 04-25-2022 take 1 tablet by mouth three times daily Buspirone 10 mg Tablet Discontinued 10 MG PO Three times daily August 23, 2019 12:00am April 25, 2022 1:39pm ciprofloxacin 500 mg oral tablet (10 sources) Quinolone Antimicrobial Start: 03-14-2018 End: 08-19-2019 take 1 tablet by mouth every twelve hours Ciprofloxacin Hcl 500 mg Tablet Discontinued 500 MG PO Q12H March 13, 2018 11:00pm August 19, 2019 2:12pm dicyclomine hydrochloride 20 mg oral tablet (20 sources) Anticholinergic Start: 02-16-2021 End: 04-25-2022 take 1 tablet by mouth four times daily Dicyclomine 20 mg tablet Discontinued 20 MG PO Four times daily February 15, 2021 11:00pm April 25, 2022 1:42pm Start: 11-14-2017 End: 03-14-2018 Dicyclomine 20 mg tablet Dis continued 20 MG PO As Directed November 14, 2017 12:00am March 14, 2018 11:46am FLUoxetine 40 mg oral capsule (20 sources) Serotonin Reuptake Inhibitor Start: 04-25-2022 End: 05-13-2024 take 1 capsule by mouth once daily in the morning Fluoxetine 40 mg capsule Discontinued 40 MG PO Every morning April 24, 2022 11:00pm May 13, 2024 8:49am Start: 08-23-2019 End: 04-25-2022 take 1 tablet by mouth once daily Fluoxetine 60 mg tablet Discontinued 60 MG PO Daily August 23, 2019 12:00am April 25, 2022 1:40pm Start: 11-14-2017 End: 08-23-2019 take 1 capsule by mouth once daily Fluoxetine (Prozac) 40 mg Capsule Discontinued 40 MG PO Daily November 14, 2017 12:00am August 23, 2019 11:13am take 1 capsule by [facility] every twenty-four hours PROzac 10 MG 1 capsule in the morning Orally Once a day Active ibuprofen 800 mg oral tablet (10 sources) Nonsteroidal Anti-inflammatory Drug Start: 03-14-2018 End: 08-19-2019 take 1 tablet by mouth three times daily as needed for pain Ibuprofen 800 mg tablet Discontinued 800 MG PO Three times daily as needed for pain March 13, 2018 11:00pm August 19, 2019 2:12pm naproxen 500 mg oral tablet (10 sources) Nonsteroidal Anti-inflammatory Drug Start: 08-19-2019 End: 07-30-2023 take 1 tablet by mouth twice daily as needed for pain Naproxen 500 mg tablet Discontinued 500 MG PO Twice daily as needed for Pain August 19, 2019 12:00am July 30, 2023 9:24am nicotine 2 mg chewing gum (10 sources) Cholinergic Nicotinic Agonist Start: 08-23-2019 End: 04-25-2022 Nicotine (Polacrilex) (Nicorelief) 2 mg Gum Discontinued 2 MG BUCCAL Q2H as needed for Nicotine Cravings August 23, 2019 12:00am April 25, 2022 1:42pm ondansetron 4 mg disintegrating oral tablet (10 sources) Serotonin-3 Receptor Antagonist Start: 02-16-2021 End: 04-25-2022 take 1 tablet by mouth four times daily as needed for nausea and vomiting Ondansetron 4 mg tablet,disintegr ating Discontinued 4 MG PO Four times daily as needed for nausea and vomiting February 15, 2021 11:00pm April 25, 2022 1:43pm pantoprazole 40 mg delayed release oral tablet (7 sources) Proton Pump Inhibitor Start: 04-15-2024 End: 07-14-2024 take 1 tablet by mouth twice daily Pantoprazole 40 mg tablet,delayed release (DR/EC) Discontinued 40 MG PO Twice daily May 12, 2024 11:00pm June 14, 2024 12:26pm sertraline 100 mg oral tablet (20 sources) Serotonin Reuptake Inhibitor Start: 10-12-2024 End: 02-03-2025 take 2 tablets by mouth once daily sertraline (Zoloft) 100 MG tablet Indications: Anxiety Take 2 tablets (200 mg) by mouth Daily 60 tablet 2 11/30/2024 01/04/2025 Discontinued (Reorder) Start: 10-04-2024 End: 11-03-2024 take 1.5 tablets by mouth once daily sertraline (Zoloft) 100 MG tablet Indications: Anxiety Take 1.5 tablets (150 mg) by mouth Daily 45 tablet 10/04/2024 10/12/2024 Discontinued (Reorder) Start: 10-04-2024 End: 11-03-2024 sertraline (ZOLOFT) 100 mg t ablet Take 150 mg by mouth. 10/04/2024 11/03/2024 Active Start: 2024 End: 08-27-2024 take 1.5 tablets by mouth once daily sertraline (Zoloft) 100 MG tablet Indications: Anxiety Take 1.5 tablets (150 mg) by mouth Daily 45 tablet 2 2024 Active Start: 06-16-2024 End: 06-16-2025 take 1 tablet by mouth once daily sertraline 100 mg Tab 100 mg = 1 tab(s), Oral, Daily, # 30 tab(s), Refills(s) 0 Start Date: 07/13/24 Status: Ordered Start: 05-10-2024 End: 05-10-2025 take 1 tablet by mouth once daily Sertraline (Zoloft) 50 mg tablet Active 50 MG PO Daily May 12, 2024 11:00pm 1 ml testosterone cypionate 200 mg/ml injection (8 sources) Androgen Start: 03-22-2024 End: 07-16-2024 testosterone cypionate (Depo-Testosterone) 200 MG/ML injection Indications: Hypogonadism in male Inject 1 mL (200 mg) into the shoulder, thigh, or buttocks every 28 (twenty-eight) days 1 mL 2 03/22/2024 07/16/2024 Discontinued (Ineffective) Problems Active Problems Problem Classification Problem Date Documented Da te Episodic/Chronic Anxiety disorders (20 sources) Mixed anxiety and depressive disorder; Translations: [Anxiety disorder, unspecified] Onset: 9 Resolved: 3 08-20-2019 Chronic Comment on above: Problem List clean-u p per request of Phys. EHR Cmte Disorders of lipid metabolism (6 sources) Mixed hyperlipidemia; Translations: [Mixed hyperlipidemia] 07-16-2024 Chronic Esophageal disorders (20 sources) Gastroesophageal reflux disease; Translations: [Gastro-esophageal reflux disease without esophagitis] Onset: 3 04-07-2023 Chronic Essential hypertension (20 sources) Hypertensive disorder; Translations: [Essential (primary) hypertension] Onset: 9 04-21-2023 Chronic Hyperplasia of prostate (13 sources) Benign prostatic hypertrophy without outflow obstruction; Translations: [Benign prostatic hyperplasia without lower urinary tract symptoms] Onset: Chronic Hypertension with complications and secondary hypertension (20 sources) Hypertensive heart disease; Translations: [Hypertensive heart disease without heart failure] Onset: 3 04-07-2023 Chronic Mood disorders (20 sources) Major depressive disorder, single episode, unspecified; Translations: [Major depression, single episode] Onset: 6 Resolved: 3 04-16-2023 Chronic Nutritional deficiencies (1 source) Vitamin D deficiency, unspecified; Translations: [Vitamin D deficiency, unspecified] Onset: 4 Chronic Other aftercare (1 source) Other fpc (current) drug therapy; Translations: [OTH FDC CURRENT DRUG THERAPY] Onset: 1 Episodic Other aftercare (2 sources) Encounter for follow-up examination after completed treatment for conditions other than malignant neoplasm; Translations: [Unspecified follow-up examination] 09-09-2024 Episodic Other gastrointestinal disorders (1 source) Stool finding; Translations: [Other fecal abnormalities] Episodic Other gastrointestinal disorders (1 source) Other fecal abnormalities Episodic Other male genital disorders (20 sources) Secondary erectile dysfunction; Translations: [Male erectile dysfunction, unspecified] Onset: 1 04-16-2023 Chronic Other male genital disorders (20 sources) Male erectile dysfunction, unspecified; Translations: [Impotence of organic origin] Onset: 3 04-16-2023 Chronic Other nervous system disorders (20 sources) Chronic pain; Translations: [Other chronic pain] Onset: 3 Resolved: 3 05-27-2023 Chronic Other nervous system disorders (3 sources) Chronic pain syndrome; Translations: [Chronic pain syndrome] 10-08-2024 Chronic Other nervous system disorders (1 source) Other chronic pain; Translations: [Chronic bilateral low back pain without sciatica] Onset: 5 Chronic Other nutritional; endocrine; and metabolic disorders (20 sources) Body mass index 30+ - obesity; Translations: [Obesity, unspecified] Onset: 1 04-16-2023 Chronic Other nutritional; endocrine; and metabolic disorders (1 source) Other obesity due to excess calories; Translations: [Other obesity due to excess calories] Onset: 4 Chronic Other nutritional; endocrine; and metabolic disorders (1 source) Body mass index (BMI) 30.0-30.9, adult; Translations: [Body mass index [BMI] 30.0-30.9, adult] Onset: 4 Chronic Other screening for suspected conditions (not mental disorders or infectious disease) (10 sources) Raised prostate specific antigen; Translations: [Elevated prostate specific antigen [PSA]] Onset: 4 Episodic Other skin disorders (3 sources) Rash and other nonspecific skin eruption; Translations: [RASH OTH NONSPECIFIC SKIN ERUPTION] Onset: 1 Episodic Other upper respiratory disease (4 sources) Allergic rhinitis due to pollen; Translations: [Allergic rhinitis due to pollen] 10-18-2024 Chronic Residual codes; unclassified (4 sources) Insomnia; Translations: [Insomnia, unspecified] 11-30-2024 Episodic Screening and history of mental health and substance abuse codes (1 source) Personal history of nicotine dependence; Translations: [PERSONAL HISTORY OF NICOTINE DEPEND] Onset: 1 Episodic Spondylosis; intervertebral disc disorders; other back problems (20 sources) Displacement of lumbar intervertebral disc without myelopathy; Translations: [Other intervertebral disc displacement, lumbar region] Onset: 1 Resolved: 3 04-16-2023 Chronic Sprains and strains (6 sources) Strain of left trapezius muscle; Translations: [Strain of other muscles, fascia and tendons at shoulder and upper arm level, left arm, sequela] 07-16-2024 Episodic Substance-related disorders (20 sources) Psychoactive substance dependence; Translations: [Opioid dependence, uncomplicated] Onset: 0 Resolved: 3 04-07-2023 Chronic Comment on above: Added secondary to d ocumentation in Social History. Unclassified (1 source) Chronic bilateral low back pain without sciatica; Translations: [Chronic bilateral low back pain without sciatica] Onset: 5 Viral infection (1 source) Zoster without complications; Translations: [ZOSTER WITHOUT COMPLICATIONS] Onset: 1 Episodic Past or Other Problems Problem Classification Problem Date Documented Da te Episodic/Chronic Abdominal hernia (20 sources) Right inguinal hernia ; Translations: [Unilateral inguinal hernia, without obstruction or gangrene, not specified as recurrent] Onset: 01-02-2018 Resolved: 05-27-2023 05-27-2023 Episodic Abdominal pain (20 sources) Right inguinal pain; Translations: [Right lower quadrant pain] Onset: 01-02-2018 Resolved: 06-10-2023 11-14-2017 Episodic Comment on above: Problem List clean-u p per request of Phys. EHR Cmte Calculus of urinary tract (20 sources) H/O: urinary stone; Translations: [Personal history of urinary calculi] Onset: 11-17-2017 Resolved: 05-27-2023 05-27-2023 Episodic Deficiency and other anemia (1 source) Iron deficiency anemia, unspecified; Translations: [Iron deficiency anemia, unspecified] Onset: 07-19-2024 Episodic Headache; including migraine (20 sources) Migraine; Translations: [Migraine, unspecified, not intractable, without status migrainosus] Onset: 04-16-2023 Resolved: 06-10-2023 06-10-2023 Chronic Impulse control disorders, NEC (20 sources) Homicidal thoughts; Translations: [Homicidal ideations] Onset: 11-13-2023 08-19-2019 Episodic Comment on above: Problem List clean-u p per request of Phys. EHR Cmte Inflammatory conditions of male genital organs (20 sources) Prostatitis; Translations: [Inflammatory disease of prostate, unspecified] Onset: 04-16-2023 Resolved: 05-27-2023 05-27-2023 Episodic Miscellaneous mental health disorders (20 sources) Primary insomnia; Translations: [Primary insomnia] Onset: 04-07-2023 Resolved: 05-27-2023 05-27-2023 Chronic Mood disorders (20 sources) Mood disorders Onset: 09-01-2023 Resolved: 01-04-2025 09-01-2023 Other congenital anomalies (20 sources) Skin elasticity - finding; Translations: [Other specified congenital malformations of skin] Onset: 04-30-2019 Resolved: 05-27-2023 05-27-2023 Chronic Other congenital anomalies (20 sources) Congenital spondylolisthesis; Translations: [Congenital spondylolisthesis] Onset: 03-08-2021 Resolved: 05-27-2023 05-27-2023 Chronic Other gastrointestinal disorders (20 sources) Slow transit constipation; Translations: [Slow transit constipation] Onset: 04-07-2023 Resolved: 06-02-2023 06-02-2023 Episodic Other gastrointestinal disorders (1 source) Heartburn; Translations: [Heartburn] Onset: 05-27-2024 Episodic Other male genital disorders (20 sources) Pain in testicle; Translations: [Testicular pain, unspecified] Onset: 06-01-2018 Resolved: 05-27-2023 05-27-2023 Episodic Other nervous system disorders (20 sources) Meralgia paresthetica; Translations: [Meralgia paresthetica, unspecified lower limb] Onset: 06-12-2021 Resolved: 05-27-2023 05-27-2023 Chronic Other nervous system disorders (20 sources) Right leg peripheral neuropathy; Translations: [Meralgia paresthetica, right lower limb] Onset: 04-16-2023 Resolved: 06-10-2023 06-10-2023 Chronic Other nervous system disorders (20 sources) Acute postoperative pain; Translations: [Other acute postprocedural pain] Onset: 11-13-2023 10-21-2022 Episodic Comment on above: Problem List clean-u p per request of Phys. EHR Cmte Other nervous system disorders (20 sources) Absence of sensation; Translations: [Anesthesia of skin] Onset: 06-12-2021 Resolved: 05-27-2023 05-27-2023 Episodic Other non-traumatic joint disorders (20 sources) Derangement of right shoulder joint; Translations: [Other specific joint derangements of right shoulder, not elsewhere classified] Onset: 04-25-2021 Resolved: 06-10-2023 06-10-2023 Chronic Other non-traumatic joint disorders (1 source) Pain in left shoulder; Translations: [Pain in left shoulder] Onset: 03-16-2024 Episodic Other upper respiratory disease (20 sources) Allergic rhinitis; Translations: [Allergic rhinitis, unspecified] Onset: 04-07-2023 Resolved: 05-27-2023 05-27-2023 Chronic Spondylosis; intervertebral disc disorders; other back problems (20 sources) Low back pain; Translations: [Acute back pain with sciatica] Onset: 01-06-2017 Resolved: 05-27-2023 09-15-2023 Episodic Substance-related disorders (20 sources) Cannabis misuse; Translations: [Cannabis use, unspecified, uncomplicated] Onset: 11-17-2017 Resolved: 06-10-2023 06-10-2023 Episodic Results Test Name Value Interpretation Reference Range Facility Ambulatory Visit Summaryon 0 12-13-2024 Ambulatory Visit Summary Ambulatory Visit Summary CIARAN CANCINO JR :1980 Visit Date:12/13/2024 Ambulatory Visit Instructions Your Diagnosis Elevated PSA BPH (benign prostatic hyperplasia) Your Care Team Attending Physician - PARISH Levine APRN, Meenu Joe Primary Care Physician - MONA DANIELS This Is Your Medications List Contact prescribing physician if questions or concerns azelastine nasal (azelastine hydrochloride 137 mcg spray) fluticasone nasal (Flonase) gabapentin (gabapentin 600 mg Tab) losartan quetiapine (Seroquel) sertraline (sertraline 100 mg Tab) tamsulosin (tamsulosin 0.4 mg Cap) Procedures Performed Hernia repair (04/05/2019), Vasectomy (2017), Tonsillectomy (1984), Hernia repair, Inguinal hernia. Discharge Vitals Heart Rate (Peripheral) 82 Respiratory Rate 19 Blood Pressure 142/116 Height 169.5 cm Height 67 in Weight 90.9 kg Weight 200.4 lb BMI 31.64 What to do next Scheduled Follow-Up Appointments Friday. 2024 3:00 PM EDT With: ESTEPHANIE HARRIS, Arun Newell Where: [facility] [address] [place] [address]- Medications What How Much When Why Instructions Unchanged azelastine nasal (azelastine hydrochloride 137 mcg spray) 1 Sprays Nasal Inhalation 2 times a day Contact prescribing physician if questions or concerns Unchanged fluticasone nasal (Flonase) 50 Microgram Nasal Inhalation Every day Contact prescribing physician if questions or concerns Unchanged gabapentin (gabapentin 600 mg Tab) 1 Tablets By Mouth 3 times a day Contact prescribing physician if questions or concerns Unchanged losartan 100 Milligram By Mouth Every day take 1.5 tabs daily Contact prescribing physician if questions or concerns Unchanged quetiapine (Seroquel) 50 Milligram By Mouth At bedtime Contact prescribing physician if questions or concerns Unchanged sertraline (sertraline 100 mg Tab) 1 Tablets By Mouth Every day Contact prescribing physician if questions or concerns Unchanged tamsulosin (tamsulosin 0.4 mg Cap) 1 Capsules By Mouth 2 times a day BPH (benign prostatic hyperplasia) Contact prescribing physician if questions or concerns Allergies alkylamine antihistamines (Anaphylaxis) HYDROcodone Bitartrate (Hives) Problems Ongoing - Any problem that you are currently receiving treatment for. BPH (benign prostatic hyperplasia) Chronic GERD Depression Elevated PSA Hypertension Migraine Prostatitis Smoker Patient Survey You may receive a survey via text or e-mail asking about your office visit. Please share your experience with us by completing your survey. We appreciate your feedback and thank you for choosing us for your care. Normal [facility] Urology Office/Clinic Noteon 12-13-2024 Urology Office/Clinic Note Urology Office/Clinic Note Chief Complaint F/U with MRI and PSA HPI Staff 44 year old male presents for 2 month f/u with MRI done 12/01/24 prev dx: elevated PSA, BPH. Pt. taking Flomax 0.4mg daily PSA 03/16/24 - 5.09 and 13.1% 12/06/24 - 5.8 & 10.3% IPSS 26 Pt. states he doesn't know he has to urinate till he gets a pain up his sides Pt. has noticed any blood in the urine History of Present Illness I have reviewed and verified the staff HPI to be accurate for this encounter. Portions of this record may have been created with voice recognition artificial intelligence software, specifically Brand[employer], [employer]irty and or [employer]zz[employer] and Teads. Substitutions may have occurred due to the inherent limitations of voice recognition and artificial intelligence software. Review of Systems PHQ Score Initial Depression Screen Score: 0 SCORE Physical Exam Vitals & Measurements HR: 82(Peripheral) RR: 19 BP: 142/116 HT: 67 in HT: 169.5 cm WT: 90.9 kg WT: 200.4 lb BMI: 31.64 General: Well developed, well nourished, in no acute distress. Assessment/Plan 1. Prostatitis (N41.9: Inflammatory disease of prostate, unspecified) UA today w/o signs of blood or infection Pt c/o of acutely worsening urinary sxs over the last 2 weeks. c/o worsening frequency, urgency, perineal pressure, discomfort w/ BM. Discussed possible prostatitis. Will move forward w/ abx tx, thuan in the setting of potential for prostate bx in the future. -Start doxy BID x 4 weeks, finish course -Flomax BID -NSAIDS x 2 weeks around the clock -will consult w/ [facility] regarding next steps - tentative f/u w/ [facility] 8 wks w/ repeat PSA. Will call pt if any other recommendations. 2. Elevated PSA (R97.20: Elevated prostate specific antigen [PSA]) PSA: 03/16/24 - 5.09 and 13.1% 07/19/24 - 4.94 & 9.7% 12/06/24 - 5.80 & 10.3% (PSAD 0.18) MRI prostate 12/01/24 - neg, prostate volume 32 ml ROSENDO 07/13/24 - neg Discussed PSA trend, low percent free, high density - suspicion for potential prostate CA despite negative MRI. To further complicate things, pt now c/o acutely worsening urinary sxs, potential prostatitis. We did discuss possible cluster bx, but will need abx tx first. Will schedule TRUS of Prostate with Biopsy. The procedural risks, benefits, details, and treatment alternatives have been discussed with the patient. These include minimal to severe bleeding, infection, blood in the semen, inability to urinate, and severe infection requiring hospitalization and IV antibiotics, among others. Ordered: PSA Free & Total Urnls Dip Stick Auto w/o Microscopy POC 20256 3. BPH (benign prostatic hyperplasia) (N40.0: Benign prostatic hyperplasia without lower urinary tract symptoms) IPSS 26 (18), QoL 6 Tamsulosin was to be doubled at prior OV. However, pt never did this. Discussed doubled dose, inc risk for SEs. Pt would like to trial -inc tamsulosin to 0.4 mg BID Ordered: tamsulosin, 0.4 mg = 1 cap(s), Oral, BID, # 60 cap(s), Refills(s) 11, Pharmacy: [facility]/pharmacy #[id number], 169.5, cm, 12/13/24 15:52:00 EDT, Height/Length Dosing, 90.9, kg, 12/13/24 15:52:00 EDT, Weight Dosing Orders: doxycycline, 100 mg = 1 cap(s), Oral, BID, may substitute hyclate for monohydrate based on availability, X 4 week(s), # 56 cap(s), Refills(s) 0, Pharmacy: [facility]/pharmacy #[id number], 169.5, cm, 12/13/24 15:52:00 EDT, Height/Length Dosing, 90.9, kg, 12/13/24 15:52:00 EDT,... Follow-up With When Contact Information ESTEPHANIE HARRIS, Arun Newell, URL [address] [place] [id number]- Additional Instructions: tentative 8 wk f/u w/ PSA, pending discussion Patient Education Prostate Cancer Screening Prostatitis Benign Prostatic Hyperplasia Problem List/Past Medical History Ongoing BPH (benign prostatic hyperplasia) Chronic GERD Depression Elevated PSA Hypertension Migraine Prostatitis Smoker Historical No qualifying data Procedure/Surgical History Hernia repair (04/05/2019), Vasectomy (2017), Tonsillectomy (1984), Hernia repair, Inguinal hernia. Medications azelastine hydrochloride 137 mcg spray, 1 spray(s), Nasal, BID doxycycline hyclate 100 mg Cap, 100 mg= 1 cap(s), Oral, BID Flonase, 50 mcg, Nasal, Daily gabapentin 600 mg Tab, 600 mg= 1 tab(s), Oral, TID losartan, 100 mg, Oral, Daily Seroquel, 50 mg, Oral, Bedtime sertraline 100 mg Tab, 100 mg= 1 tab(s), Oral, Daily tamsulosin 0.4 mg Cap, 0.4 mg= 1 cap(s), Oral, BID, 11 refills Allergies alkylamine antihistamines (Anaphylaxis) HYDROcodone Bitartrate (Hives) Social History Alcohol - Denies Alcohol Use, 01/05/2020 Substance Abuse Current, Marijuana, 1-2 times per week, 01/05/2020 Marijuana, 01/03/2020 Tobacco - High Risk, 07/02/2021 5-9 cigarettes (between 1/4 to 1/2 pack)/day in last 30 days Tobacco Use:. Yes, 12/13/2024 Family History Cancer: Mother and Father. Diabetes: Mother. Hypertension: Mother. Immunizations Vaccine Date Stat (more content not included)... Normal [facility] Comment on above: Result Comment: Elec tronically Signed By: PARISH Levine APRN, [place] X\.br\Date and Time Signed: 12/13/24 17:21 EDT CHEMISTRYOrdered By: SYSTEM SYSTEM on 12-06-2024 Free PSA [Mass/Vol] 0.6 ng/mL Invalid Interpretation Code Remisol Chem Comment on above: Interpretive Data: T he concentration of free PSA and total PSA determined with assays from different manufacturers can vary due to differences in assay methods and specificity. Values obtained with different veterinary medicine teacher's assays cannot be used interchangeably. The methodology used to obtain this result was chemiluminescence using [employer]'s Access Hybritech PSA reagent and Access Hybritech free PSA reagent. Free PSA/Total PSA [Mass fraction] 10.3 % Low >=25.0% Remisol Chem Prostate specific Ag [Mass/Vol] 5.8 ng/mL High 0.1 - 3.5 ng/mL Remisol Chem Comment on above: Interpretive Data: T he concentration of PSA determined by different manufacturers can vary due to differences in assay methods and reagent specificity. Values obtained from different assay methods cannot be used interchangeably. The methodology used for this result was chemiluminescence using [employer]'s Access Hybritech PSA reagent. MR prostate wo/w conon 12-02 MR prostate wo/w con [facility] [place] [address] MRI Report Signed Patient: Ciaran Cancino Jr MR#: [id number] : 1980 Acct:[id number] Age/Sex: 44 / M ADM Date: 12/01/24 Loc: Room: Type: [facility] Attending Dr: Meenu MADRIGAL Copies to: ROHAN Nails Ordering Provider: ROHAN Nails Date of Service: 12/01/24 MR/MR prostate wo/w con: R97.20 EXAMINATION: MR prostate wo/w con HISTORY: Elevated PSA. COMPARISON: NONE TECHNIQUE: Multiparametric imaging of the prostate gland was performed with IV contrast. FINDINGS: Prostate Dimensions: 4.9 x 2.9 x 4.3 cm. Prostate Volume: 32 mL. Peripheral Zone: Heterogenous inT2 signal suggestive of prior prostatitis. No suspicious T2 or ADC map abnormality is identified to suggest prostate malignancy. Central/Transitional Zone: BPH changes. Seminal Vesicles: Unremarkable Neurovascular bundles: Unremarkable. Lymphadenopathy: No evidence of lymphadenopathy. Bladder: No focal lesion. Bowel: The visualized bowel is without acute abnormality. Peritoneal Cavity: No free fluid. Bones: No suspicious bony lesion. MR/MR prostate wo/w con IMPRESSION: No MRI evidence of clinically significant prostate cancer. BPH. Impression dictated by: Fantasma Dc Jr., D.O.12/02/2024 9:08 AM Dictation Location: [id number] Transcribed By: PWS 12/02/2408 Dictated By: Fantasma Dc Jr, DO 12/02/2400 Signed By: 12/02/2408 Normal [facility] CNOVon 10-08-2024 CNOV Office Visit (PAMAVN ) CANCINOCIARAN Caldwell JR ([id number]) 1980 M Date Time Provider Department 10/08/24 8:00 AM MARCELA MAYEN During your visit today, we recorded the following information about you: Pulse Blood pressure Weight Height 76/minute 120/80 95 kg 1.778 m Marcela Mayen MD 10/08/2024 9:03 AM Signed [facility] Pain Management Department Consultation Date: October 08, 2024 - PM Referring physician: No referring provider defined for this encounter. Ciaran Cancino JR is seen in consultation requested by Mona Morley [employer] [facility] for an opinion regarding chronic lower back pain. My final recommendations will be communicated back to the requesting physician by way of shared medical record or via US mail. Chief Complaint: Patient presents with: Consult SUBJECTIVE History of Present Illness Ciaran Cancino JR is a 44 year old and presents with lower back pain. Past medical history is significant for: PAST MEDICAL HISTORY Diagnosis Date Cannabis use, unspecified, uncomplicated 11/17/2017 Chronic groin pain, right 01/02/2018 Added automatically from request for surgery [id number] Chronic midline low back pain without sciatica 01/06/2017 Depression 02/13/2018 Essential hypertension 03/04/2019 HTN (hypertension) Personal history of urinary calculi 11/17/2017 Right inguinal hernia 01/02/2018 Added automatically from request for surgery [id number] Intensity of pain: 4 on a scale of 0-10. Duration of pain: Years ago, with no precipitating event.. The pain is located Back-Lower and radiates below the knee on the right. Pain Description: Continuous Sharp, Shooting Timing: changes in severity but always present Aggravating Factors: standing, walking, sitting, and flexion Alleviating Factors: Reposition, Relaxation, Exercise, Medication, Heat Interference with: physical activity, walking, sleeping, and social activities. In the past 12 months, He completed 10 physical therapy sessions. Physical therapy is helpful. The patient has seen other pain providers. Possible Red Flag Ciaran Cancino JR has no red flag symptoms. Past pain treatment has included Exercise, PT, and injections Past pain medications have included Gabapentin Opioids: Oxycodone (percocet)- past prescription He had relief from the following interventions: PT He had relief from the following medications:Tylenol Gabapentin Almaz Bennett MA October 08, 2024 8:16 AM Review of Systems HENT: Negative. Eyes: Negative. Respiratory: Negative. Cardiovascular: Negative. Gastrointestinal: Negative. Genitourinary: Negative. Musculoskeletal: Positive for back pain, falls and joint pain. Negative for myalgias and neck pain. Skin: Negative. Endo/Heme/Allergies: Negative. Psychiatric/Behaviora l: Positive for depression. Negative for hallucinations, memory loss, substance abuse and suicidal ideas. The patient is not nervous/anxious and does not have insomnia. OBJECTIVE Imaging Objective October 08, [address] ABD/PELV 06/05/23 RESULT: Abdomen / Pelvis: Liver: Diffuse hepatic steatosis with areas of focal fatty sparing, especially adjacent to the gallbladder, unchanged from prior. No suspicious lesions within the unenhanced liver. Biliary: Gallbladder unremarkable. Pancreas: Unremarkable. Spleen: Few calcified granulomas. No splenomegaly. Adrenals: No mass. Kidneys: Punctate 2 mm calculus left lower pole. No hydronephrosis. No suspicious renal lesions in the unenhanced kidneys. GI Tract: No bowel dilation. Feces throughout the colon, associated with constipation, but better assessed clinically. Diverticulosis without evidence for acute diverticulitis. Normal appendix. Lymph Nodes: No lymphadenopathy. Mesentery/peritoneum/ retroperitoneum: No ascites or mass. Vasculature: Mild vascular calcifications. No aortic aneurysm. Pelvis: Bladder decompressed and not well evaluated. No significant free fluid. Expected postoperative changes from bilateral inguinal hernia repair without evidence for recurrent hernia. Small fat-containing periumbilical hernia. Bones/Soft Tissues: No acute osseous findings. Degenerative changes especially involving L4-L5. Dextroscoliosis of the imaged spine. [facility] LUMBAR SPINE XR 2020 COMPARISON:None Lumbar lordosis is adequate. No acute lumbar spine fracture is identified. No lumbar listhesis identified. No hypermobility identified with flexion and extension views. Small anterior endplate spurs. Sacralization of L5 segment noted. L4-5 mild disc space narrowing. Lower lumbar facet degeneration. Mild scoliosis identified. No paraspinal abnormality seen. SI joints are maintained. Reports listed here were copy and pasted directly into the note after review of the complete report and/or the images. Those areas highlighted in red are significant and specific to today's encounte (more content not included)... Normal [facility] XR LUMBAR 4V AP/LAT/ FLEX/EX Ton 10-08-2024 XR LUMBAR 4V AP/LAT/ FLEX/EXT * * *Final Report* * * DATE OF EXAM: Oct 08 2024 9:10AM VHX [id number] - XR LUMBAR 4V AP/LAT/ FLEX/EXT / PROCEDURE REASON: multiple diagnoses * * * * Physician Interpretation * * * * HISTORY: Chronic bilateral low back pain without sciatica Chronic bilateral low back pain without sciatica Lumbar radiculitis . CHRONIC BACK PAIN WITH RIGHT SIDED SCIATICA TECHNIQUE: XR LUMBAR 4V AP/LAT/ FLEX/EXT COMPARISON: None RESULT: Counting reference: Lumbosacral junction. For the purposes of this report, L4-5 is considered the level of the iliac crest and there are 5 lumbar-type vertebrae. Anatomic Variant: Transitional L5 vertebral body. Sacralized L5 vertebral body. Moderate apex right scoliosis centered at L1. Small multilevel spondylosis in the lower lumbar spine. Vertebral body heights and disc heights within normal limits. No fractures. Hernia mesh overlying the right pelvis. No other significant abnormality. --- IMPRESSION: Mild degenerative changes and dextroscoliosis. Mail Clerks Supervisor: KRYSTEN Transcribe Date/Time: Oct 08 2024 10:53A Dictated by : ANN-MARIE DANIELSON MD This examination was interpreted and the report reviewed and electronically signed by: ANN-MARIE DANIELSON MD on Oct 08 2024 10:55AM EST [id number] Normal [facility] XR Lumbar spine Views W flex ion and W extensionon 10-08-2024 IMPRESSION: Mild degenerative changes and dextroscoliosis. Mail Clerks Supervisor: PSCRachel Transcribe Date/Time: Oct 08 2024 10:53A Dictated by : ANN-MARIE DANIELSON MD This examination was interpreted and the report reviewed and electronically signed by: ANN-MARIE DANIELSON MD on Oct 08 2024 10:55AM EST [facility] * * *Final Report* * * DATE OF EXAM: Oct 08 2024 9:10AM VHX 5231 - XR LUMBAR 4V AP/LAT/ FLEX/EXT / PROCEDURE REASON: multiple diagnoses * * * * Physician Interpretation * * * * HISTORY: Chronic bilateral low back pain without sciatica Chronic bilateral low back pain without sciatica Lumbar radiculitis . CHRONIC BACK PAIN WITH RIGHT SIDED SCIATICA TECHNIQUE: XR LUMBAR 4V AP/LAT/ FLEX/EXT COMPARISON: None RESULT: Counting reference: Lumbosacral junction. For the purposes of this report, L4-5 is considered the level of the iliac crest and there are 5 lumbar-type vertebrae. Anatomic Variant: Transitional L5 vertebral body. Sacralized L5 vertebral body. Moderate apex right scoliosis centered at L1. Small multilevel spondylosis in the lower lumbar spine. Vertebral body heights and disc heights within normal limits. No fractures. Hernia mesh overlying the right pelvis. No other significant abnormality. --- [facility] Provider, [facility] - 10/08/2024 * * *Final Report* * * DATE OF EXAM: Oct 08 2024 9:10AM VHX 5231 - XR LUMBAR 4V AP/LAT/ FLEX/EXT / PROCEDURE REASON: multiple diagnoses * * * * Physician Interpretation * * * * HISTORY: Chronic bilateral low back pain without sciatica Chronic bilateral low back pain without sciatica Lumbar radiculitis . CHRONIC BACK PAIN WITH RIGHT SIDED SCIATICA TECHNIQUE: XR LUMBAR 4V AP/LAT/ FLEX/EXT COMPARISON: None RESULT: Counting reference: Lumbosacral junction. For the purposes of this report, L4-5 is considered the level of the iliac crest and there are 5 lumbar-type vertebrae. Anatomic Variant: Transitional L5 vertebral body. Sacralized L5 vertebral body. Moderate apex right scoliosis centered at L1. Small multilevel spondylosis in the lower lumbar spine. Vertebral body heights and disc heights within normal limits. No fractures. Hernia mesh overlying the right pelvis. No other significant abnormality. --- IMPRESSION IMPRESSION: Mild degenerative changes and dextroscoliosis. Mail Clerks Supervisor: KRYSTEN Transcribe Date/Time: Oct 08 2024 10:53A Dictated by : ANN-MARIE DANIELSON MD This examination was interpreted and the report reviewed and electronically signed by: ANN-MARIE DANIELSON MD on Oct 08 2024 10:55AM EST [facility] Rad[facility]ative[facility] W flex ion and W extensionOrdered By: [facility] Provider on 10-08-2024 [facility] Ras 09-22-2024 KEYSHA Telephone (SCOTT) CIARAN CANCINO JR ([id number]) 1980 M Date Time Provider Department 09/22/24 MARCELA MAYEN During your visit today, we recorded the following information about you: Dayan Escoto RN 09/22/2024 12:51 PM Signed Called and left message for patient with family member to return call regarding appointment with Dr. Mayen. Please give patient this message when he returns call: This message is in regards to your upcoming appointment with Dr. Mayen on 12/20/24. Please bring any outside medical records, imaging and lab work with you to your appointment. Also Dr. Mayen is interventional pain management (injections, physical therapy and non-narcotic medications), he does not prescribe or take over any narcotic opioid pain medications (Percocet, Oxycodone, Hydrocodone, Tramadol). If you have any questions about your appointment, please call [phone] and ask for pain management. Thank You, [facility] Allergies As of Date: 09/22/2024 Noted Allergy Reaction ANTIHISTIMINE 11/05/2016 4 - Hives 10 - Anaphylaxis HYDROCODONE 11/05/2016 4 - Hives 9 - Itching Date Reviewed: 04/12/2019 Reviewed by: Davey Andrews - Fully Assessed Reason for Visit: Appointment [186] Cmt: New patient call left message Prescriptions as of 09/22/2024 - gabapentin (NEURONTIN) 100 mg capsule Take 1 capsule by mouth once daily for 90 days. - losartan (COZAAR) 25 mg tablet Take 25 mg by mouth once daily. - quetiapine fumarate (SEROQUEL ORAL) Take 1 tablet by mouth daily at bedtime. - docusate sodium (COLACE) 100 mg capsule Take 1 capsule by mouth twice daily. - FLUoxetine HCl (PROZAC) 40 mg capsule Take 40 mg by mouth once daily. Problem List As Of Date 09/22/2024 Noted Resolved Chronic midline low back pain without sciatica *01/06/2017 Chronic groin pain, right [R10.31, G89.29] 01/02/2018 Right inguinal hernia [K40.90] 01/02/2018 Depression [F32.A] 02/13/2018 Orchalgia [N50.819] 06/01/2018 Personal history of urinary calculi [Z87.442] 11/17/2017 Cannabis use, unspecified, uncomplicated [F12.9*11/17/2017 Essential hypertension [I10] 03/04/2019 Encounter Status:Closed by DAYAN ESCOTO on 09/22/[address] [facility] Automated basophil %Ordered By: Mona Morley on 07-19-2024 Basophils/100 WBC (Bld) 0.6 % Normal . [facility] Comment on above: Performed By: #### U RMACRERAT #### [facility] [address] [place] [address] Automated basophil countOrde red By: Mona Morley on 07-19-2024 Basophils (Bld) [#/Vol] 0.0 10*3/uL Normal 0.0-0.2 [facility] Comment on above: Result Comment: PERF ORMED BY: [place] [address] PATHOLOGIST CATALYST RECOVERY OPERATOR SAMI LAKHANI M.D. Performed By: #### U RMACRERAT #### [address] Automated blood monocyte cou ntOrdered By: Mona Morley on 07-19-2024 Monocytes (Bld) [#/Vol] 0.5 10*3/uL Normal 0.0-0.8 [facility] Comment on above: Performed By: #### U RMACRERAT #### [address] Automated eosinophil %Ordere d By: Mona Morley on 07-19-2024 Eosinophils/100 WBC (Bld) 3.4 % Normal . [facility] Comment on above: Performed By: #### U RMACRERAT #### [address] Automated eosinophil countOr dered By: Mona Morley on 07-19-2024 Eosinophils (Bld) [#/Vol] 0.3 10*3/uL Normal 0.0-0.45 [facility] Comment on above: Performed By: #### U RMACRERAT #### [address] Automated monocyte %Ordered By: Mona Morley on 07-19-2024 Monocytes/100 WBC (Bld) 6.3 % Normal . [facility] Comment on above: Performed By: #### U RMACRERAT #### [address] Automated neutrophil %Ordere d By: Mona Morley on 07-19-2024 Neutrophils/100 WBC (Bld) 63.8 % Normal . [facility] Comment on above: Performed By: #### U RMACRERAT #### [address] Complete Blood Count Auto Di ffon 07-19-2024 Mean Corpuscular HGB Conc 33.8 g/dL Normal 32.5-35.6 [facility] Comment on above: Performed By: #### U RMACRERAT #### [address] NRBC% 0.1 /100{WBC} Normal 0-0.5 [facility] Comment on above: Performed By: #### U RMACRERAT #### [address] Erythrocyte distribution wid th [Ratio] by Automated countOrdered By: Mona Morley on 07-19-2024 Erythrocyte distribution width (RBC) [Ratio] 16.9 % High 12.0-14.8 [facility] Comment on above: Performed By: #### U RMACRERAT #### [address] Erythrocytes [#/volume] in B lood by Automated countOrdered By: Mona Morley on 07-19-2024 RBC (Bld) [#/Vol] 5.38 10*6/uL Normal 3.90-5.60 [facility] Comment on above: Performed By: #### U RMACRERAT #### [address] Ferritin [Mass/volume] in Se rum or PlasmaOrdered By: Mona Morley on 07-19-2024 Ferritin [Mass/Vol] 21.3 ng/mL Low 23.9-336.2 [facility] Comment on above: Performed By: #### U RMACRERAT #### [address] Hematocrit [Volume Fraction] of Blood by Automated countOrdered By: Mona Morley on 07-19-2024 Hematocrit (Bld) [Volume fraction] 45.1 % Normal 38.8-50.0 [facility] Comment on above: Performed By: #### U RMACRERAT #### [facility] [address] [place] [address] Hemoglobin [Mass/volume] in BloodOrdered By: Mona Morley on 07-19-2024 Hemoglobin (Bld) [Mass/Vol] 15.3 g/dL Normal 13.0-17.0 [facility] Comment on above: Performed By: #### U RMACRERAT #### [facility] [address] [place] [address] Iron [Mass/volume] in Serum or PlasmaOrdered By: Mona Morley on 07-19-2024 Iron [Mass/Vol] 61 ug/dL Normal 50-212 [facility] Comment on above: Performed By: #### U RMACRERAT #### [facility] [address] [place] [address] Iron and TIBC Profileon 07-06 % Iron Saturation 13.8 % Low 20-50 [facility] Comment on above: Performed By: #### U RMACRERAT #### [facility] [address] [place] [address] Total Iron Binding Capacity 442 ug/dL Normal 255-450 [facility] Comment on above: Performed By: #### U RMACRERAT #### [facility] [address] [place] [address] Iron binding capacity [Mass/ volume] in Serum or PlasmaOrdered By: Mona Morley on 07-19-2024 Iron binding capacity [Mass/Vol] 442 ug/dL 255-450 [facility] Iron saturation [Mass Fracti on] in Serum or PlasmaOrdered By: Mona Morley on 07-19-2024 Iron saturation [Mass fraction] 13.8 % Low 20-50 [facility] Leukocytes [#/volume] correc hattie for nucleated erythrocytes in Blood by Automated counOrdered By: Mona Morley on 07-19-2024 WBC corrected for nucl RBC Auto (Bld) [#/Vol] 8.1 10*3/uL 4.1-10.5 [facility] Leukocytes [#/volume] in Blo od by Automated countOrdered By: Mona Morley on 07-19-2024 WBC (Bld) [#/Vol] 8.1 10*3/uL Normal 4.1-10.5 [facility] Comment on above: Performed By: #### U RMACRERAT #### [place] [address] [place] Lymphocytes [#/volume] in Bl ood by Automated countOrdered By: Mona Morley on 07-19-2024 Lymphocytes (Bld) [#/Vol] 2.1 10*3/uL Normal 1.00-4.8 [facility] Comment on above: Performed By: #### U RMACRERAT #### [place] [address] [place] Lymphocytes/100 leukocytes i n Blood by Automated countOrdered By: Mona Morley on 07-19-2024 Lymphocytes/100 WBC (Bld) 25.9 % Normal . [facility] Comment on above: Performed By: #### U RMACRERAT #### [place] [address] [place] MCH [Entitic mass] by Automa hattie countOrdered By: Mona Morley on 07-19-2024 MCH (RBC) [Entitic mass] 28.3 pg Normal 27.5-35.2 [facility] Comment on above: Performed By: #### U RMACRERAT #### [address] MCHC Auto (RBC) [Mass/Vol]Or dered By: Mona Morley on 07-19-2024 MCHC (RBC) [Mass/Vol] 33.8 g/dL 32.5-35.6 [facility] MCV [Entitic volume] by Auto mated countOrdered By: Mona Morley on 07-19-2024 MCV (RBC) [Entitic vol] 83.8 fL Normal 83.5-101 [facility] Comment on above: Performed By: #### U RMACRERAT #### [place] [address] [place] Neutrophils [#/volume] in Bl ood by Automated countOrdered By: Mona Morley on 07-19-2024 Neutrophils (Bld) [#/Vol] 5.2 10*3/uL Normal 1.8-7.7 [facility] Comment on above: Performed By: #### U RMACRERAT #### [address] Nucleated erythrocytes [Pres ence] in Blood by Automated countOrdered By: Mona Morley on 07-19-2024 Nucleated RBC Auto Ql (Bld) 0.1 /100{WBC} 0-0.5 [facility] PSA Diagnostic (Total Free)o n 07-19-2024 Prostate Spec Ag, Free 0.480 ng/mL Normal [facility] Comment on above: Performed By: #### P SATF #### [address] PSA Total (Not a Screen) 4.940 ng/mL High 0.000-4.000 [facility] Comment on above: Result Comment: Kulwinderi al tumor marker results determined by assays using different manufacturers or methods may not be comparable. [facility] veterinary medicine teacher and method: Buy With Fetch DXI, CHEMILUMINESCENT IMMUNOASSAY. Performed By: #### P SATF #### [address] PSA,FREE% 9.7 % Normal [facility] Comment on above: Result Comment: Base d on the work of [place] et al.VANI. 279(19):1542:47.1998 the percent free PSA may be used to determine the relative risk of prostate cancer in individual men.The percent probability of prostate cancer by patient age for men with non-suspicious ROSENDO results and total PSa between 4 and 10 ng/ml is as follows: % Free PSA 50 - 64 yrs. 65 - 75 yrs. 0 - 10 56% 55% 10 - 15 24% 35% 15 - 20 17% 23% 20 - 25 10% 20% >25 5% 9% PERFORMED BY: [address] [place] [address] PATHOLOGIST CATALYST RECOVERY OPERATOR SAMI LAKHANI M.D. Performed By: #### P SATF #### [address] [place] [address] [place] Platelet mean volume [Entiti c volume] in Blood by Automated countOrdered By: Mona Morley on 07-19-2024 Platelet mean volume (Bld) [Entitic vol] 7.8 fL Normal 6.6-10.1 [facility] Comment on above: Performed By: #### U RMACRERAT #### [facility] [address] [place] [address] [place] Platelets [#/volume] in Bloo d by Automated countOrdered By: Mona Morley on 07-19-2024 Platelets (Bld) [#/Vol] 272 10*3/uL Normal 150-450 [facility] Comment on above: Performed By: #### U RMACRERAT #### [facility] [address] Prostate Specific Ag Free [M ass/volume] in Serum or PlasmaOrdered By: Meenu Levine on 07-19-2024 Free PSA [Mass/Vol] 0.480 ng/mL [facility] Prostate specific Ag [Mass/v olume] in Serum or PlasmaOrdered By: Meenu Levine on 07-19-2024 Prostate specific Ag [Mass/Vol] 4.940 ng/mL High 0.000-4.000 [facility] Comment on above: Serial tumor marker results determined by assays using different manufacturers or methods may not be comparable.[facility] veterinary medicine teacher and method:JAIME [employer]medixEL DXI, CHEMILUMINESCENT IMMUNOASSAY. Serum or plasma free prostat e specific antigen (PSA)/total PSA ratioOrdered By: Meenu Levine on 07-19-2024 Free PSA/Total PSA [Mass fraction] 9.7 % [facility] Comment on above: Based on the work of [place] et al.VANI. 279(19):1542:47.1998 the percent free PSA may be used to determine the relative risk of prostate cancer in individual men.The percent probability of prostate cancer by patient age for men with non-suspicious ROSENDO results and total PSa between 4 and 10 ng/ml is as follows:% Free PSA 50 - 64 yrs. 65 - 75 yrs. 0 - 10 56% 55% 10 - 15 24% 35% 15 - 20 17% 23% 20 - 25 10% 20% >25 5% 9% Testosterone Free and Totalo n 07-19-2024 Testosterone [Mass/Vol] 343 ng/dL Normal 264-916 [facility] Comment on above: Result Comment: Adul t male reference interval is based on a population of healthy nonobese males (BMI <30) between 19 and 39 years old. Latasha, et.al. JCEM 2017,102;3577-5774. PMID: [id number]. Performed By: #### U RMACRERAT #### [facility] [address] [place] [id number] [facility] Testosterone,Free 12.7 pg/mL Normal 6.8-21.5 [facility] Comment on above: Result Comment: Perf ormed at: - [facility] [address] [id number] Machine Sneller: Inocencio Negro PhD, Phone: [phone] Performed at: - [facility] [address] [id number] Machine Sneller: Eleno Pierce MD, Phone: [phone] PERFORMED BY: [place] [address] PATHOLOGIST CATALYST RECOVERY OPERATOR SAMI LAKHANI M.D. Performed By: #### U RMACRERAT #### [place] [id number] [facility] Transferrin [Mass/volume] in Serum or PlasmaOrdered By: Mona Morley on 07-19-2024 Transferrin [Mass/Vol] 316 mg/dL Normal 203-362 [facility] Comment on above: Performed By: #### U RMACRERAT #### [place] [id number] [place] Vitamin D 25 Hydroxy Totalon 07-19-2024 Vitamin D 25 Hydroxy Total 20.7 ng/mL Low 30-100 [facility] Comment on above: Result Comment: HAMIDA MIN D STATUS 25(OH)VITAMIN D RANGE (ng/mL) Deficient <20 Insufficient 20 to <30 Sufficient 30 to 100 Reference: Taras MF,Saman NC, Elizabeth COHEN, et al. Evaluation,treatment, and prevention of vitamin D deficiency; an Endocrine Society clinical practice guideline. JCEM. 2010; 96(7):1911-. PERFORMED BY: [facility] [address] [place] [address] PATHOLOGIST CATALYST RECOVERY OPERATOR SAMI LAKHANI M.D. Performed By: #### U RMACRERAT #### [address] Vitamin D+Metabolites [Mass/ volume] in Serum or PlasmaOrdered By: oMna Morley on 07-19-2024 Vitamin D+Metabolites [Mass/Vol] 20.7 ng/mL Low 30-100 [facility] Comment on above: VITAMIN D STATUS 25( [place])VITAMIN D RANGE (ng/mL) Deficient <20 Insufficient 20 to <30Sufficient 30 to 100Reference: Taras MF,Saman BOLANOS, Elizabeth COHEN, et al. Evaluation,treatment, and prevention of vitamin D deficiency; an Endocrine Society clinical practice guideline. JCEM. 2010; 96(7):1911-30. Amphetamine Screen Ql (U)Ord ered By: Imad Asaad on 05-27-2024 Amphetamines Ql (U) Negative Negative [facility] Barbiturates [Presence] in U rine by Screen methodOrdered By: Imad Asaad on 05-27-2024 Barbiturates Screen Ql (U) Negative Negative [facility] Benzodiazepines Screen Ql (U )Ordered By: Imad Asaad on 05-27-2024 Benzodiazepines Ql (U) Negative Negative [facility] Benzoylecgonine [Presence] i n Urine by Screen methodOrdered By: Imad Asaad on 05-27-2024 Benzoylecgonine Screen Ql (U) Negative Negative [facility] Cannabinoids [Presence] in U rine by Screen methodOrdered By: Imad Asaad on 05-27-2024 Cannabinoids Screen Ql (U) Positive High Negative [facility] Comment on above: These are unconfirme d results and should not be used for legal purposes. Drug Cut-Off Concentration: AMPH 1000 ng/mL GENOVEVA 200 ng/mL RIRI 200 ng/mL COCM 300 ng/mL OP 300 ng/mL PCP 25 ng/mL THC 20 ng/mL Drug Screen,Urineon 05-27-20 Amphetamine Screen,Urine Negative Normal Negative [facility] Comment on above: Performed By: #### U RMACRERAT #### [address] Barbiturate Screen,Urine Negative Normal Negative [facility] Comment on above: Performed By: #### U RMACRERAT #### [address] Benzodiazepines Screen,Urine Negative Normal Negative [facility] Comment on above: Performed By: #### U RMACRERAT #### [address] Cannabinoid Screen,Urine Positive High Negative [facility] Comment on above: Result Comment: Thes e are unconfirmed results and should not be used for legal purposes. Drug Cut-Off Concentration: AMPH 1000 ng/mL GENOVEVA 200 ng/mL RIRI 200 ng/mL COCM 300 ng/mL OP 300 ng/mL PCP 25 ng/mL THC 20 ng/mL PERFORMED BY: [place] [address] PATHOLOGIST CATALYST RECOVERY OPERATOR SAMI LAKHANI M.D. Performed By: #### U RMACRERAT #### [address] Cocaine Screen,Urine Negative Normal Negative [facility] Comment on above: Performed By: #### U RMACRERAT #### [address] Opiate Screen,Urine Negative Normal Negative [facility] Comment on above: Performed By: #### U RMACRERAT #### [address] Phencyclidine Screen,Urine Negative Normal Negative [facility] Comment on above: Performed By: #### U RMACRERAT #### [place] [address] [place] Javon 05-27-2024 L Specimen: [id number] Received: 05/28/24 Status: ERIC Real Num: [id number] Spec Type: Surgical Subm Dr: Anastacia Jesus MD Tissues: A Esophagus Biopsy (ESOPHAGUS BX) Procedures: HE/2, Gross/Micro L4 Age/ Patient Sex Location Account Attending Physician CancinoCiaran Horner 43/M [id number] Anastacia Jesus MD SPEC NUM: [id number] RECD: 05/28/24 STATUS: ERIC REAL NUM: [id number] MELO: 05/27/[address]: Anastacia Jesus MD ENTERED: 05/28/[address] [facility] [address]: SPEC TYPE: Surgical DEPT: S ENTERED BY: [id number] RECV BY: [id number] ORDERED: HE/2, Gross/Micro L4 ORDERED: HE/2, Gross/Micro L4 Pathological Diagnosis Esophagus biopsy: -Benign glandular mucosa with patchy intestinal metaplasia in both fragments, consistent with chronic Shepherd Esophagitis -No evidence of malignancy or glandular dysplasia identified Clinical Information GERD Gross Description The specimen was received in formalin with the patient's name and esophagus biopsy are 2 miranda-white soft tissue fragments measuring 0.2 and 0.3 cm in greatest dimension. The specimen is entirely submitted in cassette A1. Microscopic Description Microscopic examinations are performed supporting the above interpretation -------- Specimen: [id number] Received: 05/28/24 Status: ERIC Real Num: [id number] Spec Type: Surgical Subm Dr: Anastacia Jesus MD Tissues: A Esophagus Biopsy (ESOPHAGUS BX) Procedures: HE/2, Gross/Micro L4 -------- Patient: Ciaran Cancino Evens Kaye [id number] (Continued) -------- Specimen: [id number] Received: 05/28/24 (Continued) Signed (signature on file) Maribel Gomez MD 05/31/241036 -------- Specimen: [id number] Received: 05/28/24 Status: ERIC Farida Num: [id number] Spec Type: Surgical Subm Dr: Anastacia Jesus MD Tissues: A Esophagus Biopsy (ESOPHAGUS BX) Procedures: MALCOLM/Dank Cruz/Shivani L4 -------- Patient: Ciaran Cancino Evens Kaye [id number] (Continued) -------- Specimen: [id number] Received: 05/28/24 (Continued) CPT Codes 27244 -------- -------- Specimen: [id number] Received: 05/28/24 Status: ERIC Real Num: [id number] Spec Type: Surgical Subm Dr: Anastacia Jesus MD Tissues: A Esophagus Biopsy (ESOPHAGUS BX) Procedures: HE/Anthony, Gross/Micro L4 -------- Patient: Ciaran Cancino Jr [id number] (Continued) -------- Signed (signature on file) Maribel Gomez MD 05/31/24 1037 Normal [facility] Opiates [Presence] in Urine by Screen methodOrdered By: Anastacia Jesus on 05-27-2024 Opiates Screen Ql (U) Negative Negative [facility] Phencyclidine Screen Ql (U)O rdered By: Anastacia Jesus on 05-27-2024 Phencyclidine Ql (U) Negative Negative [facility] Alanine aminotransferase [En zymatic activity/volume] in Serum or PlasmaOrdered By: Mona Morley on 03-16-2024 ALT [Catalytic activity/Vol] 37 U/L Normal 7-52 [facility] Comment on above: Performed By: #### C MP, TSH3, [id number], T4F, LIPID #### [facility] [address] [place] [address] [place] Albumin [Mass/volume] in Ser um or Plasma by Bromocresol green (BCG) dye binding methoOrdered By: Mona Morley on 03-16-2024 Albumin BCG dye [Mass/Vol] 4.3 g/dL 3.5-5.7 [facility] Alkaline phosphatase [Enzyma tic activity/volume] in Serum or PlasmaOrdered By: Mona Morley on 03-16-2024 ALP [Catalytic activity/Vol] 89 U/L Normal 34-104 [facility] Comment on above: Performed By: #### C MP, TSH3, [id number], T4F, LIPID #### [facility] [address] [place] [address] [place] Aspartate aminotransferase [ Enzymatic activity/volume] in Serum or PlasmaOrdered By: Mona Morley on 03-16-2024 AST [Catalytic activity/Vol] 18 U/L Normal 13-39 [facility] Comment on above: Performed By: #### C MP, TSH3, [id number], T4F, LIPID #### [facility] [address] [place] [address] [place] Automated basophil %Ordered By: Mona Morley on 03-16-2024 Basophils/100 WBC (Bld) 0.5 % Normal . [facility] Comment on above: Performed By: #### C BC #### [address] Automated basophil countOrde red By: Mona Garzamilly on 03-16-2024 Basophils (Bld) [#/Vol] 0.1 10*3/uL Normal 0.0-0.2 [facility] Comment on above: Result Comment: PERF ORMED BY: [place] [address] PATHOLOGIST CATALYST RECOVERY OPERATOR SAMI LAKHANI M.D. Performed By: #### C BC #### [address] Automated blood monocyte cou ntOrdered By: Mona Peyman on 03-16-2024 Monocytes (Bld) [#/Vol] 1.1 10*3/uL High 0.0-0.8 [facility] Comment on above: Performed By: #### C BC #### [address] Automated eosinophil %Ordere d By: Mona Garzamilly on 03-16-2024 Eosinophils/100 WBC (Bld) 1.8 % Normal . [facility] Comment on above: Performed By: #### C BC #### [address] Automated eosinophil countOr dered By: Mona Peyman on 03-16-2024 Eosinophils (Bld) [#/Vol] 0.2 10*3/uL Normal 0.0-0.45 [facility] Comment on above: Performed By: #### C BC #### [address] Automated monocyte %Ordered By: Mona Peyman on 03-16-2024 Monocytes/100 WBC (Bld) 7.9 % Normal . [facility] Comment on above: Performed By: #### C BC #### [address] Automated neutrophil %Ordere d By: Mona Morley on 03-16-2024 Neutrophils/100 WBC (Bld) 63.8 % Normal . [facility] Comment on above: Performed By: #### C BC #### [facility] [address] [place] [address] [place] Bilirubin.total [Mass/volume ] in Serum or PlasmaOrdered By: Mona Gregchol on 03-16-2024 Bilirubin [Mass/Vol] 0.4 mg/dL Normal 0.3-1.0 [facility] Comment on above: Performed By: #### C MP, TSH3, [id number], T4F, LIPID #### [facility] [address] Calcium [Mass/volume] in Ser um or PlasmaOrdered By: Mona Warchol on 03-16-2024 Calcium [Mass/Vol] 9.5 mg/dL Normal 8.6-10.3 [facility] Comment on above: Performed By: #### C MP, TSH3, [id number], T4F, LIPID #### [facility] [address] [place] [address] [place] Carbon dioxide, total [Moles /volume] in Serum or PlasmaOrdered By: Mona Warchol on 03-16-2024 CO2 [Moles/Vol] 32.3 mmol/L High 21.0-31.0 [facility] Comment on above: Performed By: #### C MP, TSH3, [id number], T4F, LIPID #### [facility] [address] [place] [address] [place] Chloride [Moles/volume] in S bryan or PlasmaOrdered By: Mona Warchol on 03-16-2024 Chloride [Moles/Vol] 104 mmol/L Normal 98-107 [facility] Comment on above: Performed By: #### C MP, TSH3, [id number], T4F, LIPID #### [facility] [address] Cholesterol [Mass/volume] in Serum or PlasmaOrdered By: Mona Warchol on 03-16-2024 Cholesterol [Mass/Vol] 218 mg/dL High 140-200 [facility] Comment on above: Chol less than 200 m g/dl low riskChol 201-239 mg/dl borderline riskChol 240 mg/dl and greater high risk Result Comment: Chol less than 200 mg/dl low risk Chol 201-239 mg/dl borderline risk Chol 240 mg/dl and greater high risk Performed By: #### C MP, TSH3, [id number], T4F, LIPID #### [address] Cholesterol in LDL Calc [Mas s/Vol]Ordered By: Mona Morley on 03-16-2024 Cholesterol in LDL [Mass/Vol] 114 mg/dL High 0-100 [facility] Comment on above: LDL ATP III CLASSIFI CATIONLDL less than 100 mg/dL OptimalLDL 100-129 mg/dL Near or above optimalLDL 130-159 mg/dL Borderline highLDL 160-189 mg/dL HighLDL greater than 189 mg/dL Very high Cholesterol in VLDL Calc [Ma ss/Vol]Ordered By: Mona Morley on 03-16-2024 Cholesterol in VLDL [Mass/Vol] 54 mg/dL [facility] Complete Blood Count Auto Di ffon 03-16-2024 Mean Corpuscular HGB Conc 32.7 g/dL Normal 32.5-35.6 [facility] Comment on above: Performed By: #### C BC #### [address] NRBC% 0.1 /100{WBC} Normal 0-0.5 [facility] Comment on above: Performed By: #### C BC #### [address] Comprehensive Metabolic Pane javon 03-16-2024 Albumin [Mass/Vol] 4.3 g/dL Normal 3.5-5.7 [facility] Comment on above: Performed By: #### C MP, TSH3, [id number], T4F, LIPID #### [address] GFR/1.73 sq M.predicted MDRD (S/P/Bld) [Vol rate/Area] mL/min/{1.73_m2} Normal [facility] Comment on above: Performed By: #### C MP, TSH3, [id number], T4F, LIPID #### [facility] [address] Creatinine [Mass/volume] in Serum or PlasmaOrdered By: Mona Morley on 03-16-2024 Creatinine [Mass/Vol] 1.17 mg/dL Normal 0.70-1.30 [facility] Comment on above: Performed By: #### C MP, TSH3, [id number], T4F, LIPID #### [address] Creatinine [Mass/volume] in UrineOrdered By: Mona Morley on 03-16-2024 Creatinine (U) [Mass/Vol] 206.00 mg/dL [facility] Comment on above: No reference range e stablished Erythrocyte distribution wid th [Ratio] by Automated countOrdered By: Mona Morley on 03-16-2024 Erythrocyte distribution width (RBC) [Ratio] 17.0 % High 12.0-14.8 [facility] Comment on above: Performed By: #### C BC #### [address] Erythrocytes [#/volume] in B lood by Automated countOrdered By: Mona Morley on 03-16-2024 RBC (Bld) [#/Vol] 5.15 10*6/uL Normal 3.90-5.60 [facility] Comment on above: Performed By: #### C BC #### [address] Free testosterone measuremen t by LC-MS/MSOrdered By: Mona Morley on 03-16-2024 Testosterone Free [Mass/Vol] 8.1 pg/mL 6.8-21.5 [facility] Comment on above: Performed at: [facility] [address] [id number] Director: Inocencio Negro PhD, Phone: [phone] at: - [facility] [id number] Director: Eleno Pierce MD, Phone: [phone] Glucose [Mass/volume] in Ser um or PlasmaOrdered By: Mona Morley on 03-16-2024 Glucose [Mass/Vol] 86 mg/dL Normal 70-100 [facility] Comment on above: ADA recommended refe rence rangeRandom Glucose Reference Range is dependent on time and content of last meal. Glucose of more than 200 mg/dL in a nonstressed, ambulatory subject supports the diagnosis of Diabetes Mellitus. Result Comment: [place] om Glucose Reference Range is dependent on time and content of last meal. Glucose of more than 200 mg/dL in a nonstressed, ambulatory subject supports the diagnosis of Diabetes Mellitus. ADA recommended reference range Performed By: #### C MP, TSH3, [id number], T4F, LIPID #### [address] Hematocrit [Volume Fraction] of Blood by Automated countOrdered By: Mona Morley on 03-16-2024 Hematocrit (Bld) [Volume fraction] 42.4 % Normal 38.8-50.0 [facility] Comment on above: Performed By: #### C BC #### [address] Hemoglobin [Mass/volume] in BloodOrdered By: Mona Morley on 03-16-2024 Hemoglobin (Bld) [Mass/Vol] 13.9 g/dL Normal 13.0-17.0 [facility] Comment on above: Performed By: #### C BC #### [place] [address] [place] Leukocytes [#/volume] correc hattie for nucleated erythrocytes in Blood by Automated counOrdered By: Mona Morley on 03-16-2024 WBC corrected for nucl RBC Auto (Bld) [#/Vol] 13.3 10*3/uL High 4.1-10.5 [facility] Leukocytes [#/volume] in Blo od by Automated countOrdered By: Mona Morley on 03-16-2024 WBC (Bld) [#/Vol] 13.3 10*3/uL High 4.1-10.5 [facility] Comment on above: Performed By: #### C BC #### [facility] [address] [place] [id number] [facility] Lipid Panelon 03-16-2024 LDL Cholesterol,Calculated 114 mg/dL High 0-100 [facility] Comment on above: Result Comment: LDL ATP III CLASSIFICATION LDL less than 100 mg/dL Optimal LDL 100-129 mg/dL Near or above optimal LDL 130-159 mg/dL Borderline high LDL 160-189 mg/dL High LDL greater than 189 mg/dL Very high Performed By: #### C MP, TSH3, [id number], T4F, LIPID #### [facility] [address] Triglyceride w/Reflex 270 mg/dL High 0-149 [facility] Comment on above: Result Comment: TRIG ATP III CLASSIFICATION TRIG less than 150 mg/dL Normal TRIG 150-199 mg/dL Borderline high TRIG 200-500 mg/dL High TRIG greater than 500 mg/dL Very high Standard traceable to the Center for Disease Conrtrol and Prevention (CDC) test method. Performed By: #### C MP, TSH3, [id number], T4F, LIPID #### [address] VLDL CHOLESTEROL 54 mg/dL Normal [facility] Comment on above: Performed By: #### C MP, TSH3, [id number], T4F, LIPID #### [place] [address] [place] Lymphocytes [#/volume] in Bl ood by Automated countOrdered By: Mona Morley on 03-16-2024 Lymphocytes (Bld) [#/Vol] 3.5 10*3/uL Normal 1.00-4.8 [facility] Comment on above: Performed By: #### C BC #### [place] [id number] [place] Lymphocytes/100 leukocytes i n Blood by Automated countOrdered By: Mona Morley on 03-16-2024 Lymphocytes/100 WBC (Bld) 26.0 % Normal . [facility] Comment on above: Performed By: #### C BC #### [place] [address] [place] MCH [Entitic mass] by Automa hattie countOrdered By: Mona Morley on 03-16-2024 MCH (RBC) [Entitic mass] 27.0 pg Low 27.5-35.2 [facility] Comment on above: Performed By: #### C BC #### [address] MCHC Auto (RBC) [Mass/Vol]Or dered By: Mona Morley on 03-16-2024 MCHC (RBC) [Mass/Vol] 32.7 g/dL 32.5-35.6 [facility] MCV [Entitic volume] by Auto mated countOrdered By: Mona Morley on 03-16-2024 MCV (RBC) [Entitic vol] 82.5 fL Low 83.5-101 [facility] Comment on above: Performed By: #### C BC #### [address] MicroAlb Creat Ratio,Uon Creatinine, Urine (Random) 206.00 mg/dL Normal [facility] Comment on above: Result Comment: No r eference range established Performed By: #### U RMACRERAT #### [address] Microalbumin/Creatinine Ratio 6.8 mg/g Normal 0.0-30.0 [facility] Comment on above: Result Comment: 30-3 00 mg/g indicates an increased risk for diabetic nephropathy. Greater than 300 mg/g is consistent with clinical nephropathy. (Am. J. Kidney Disease 1995, 25:107) PERFORMED BY: [place] [address] PATHOLOGIST CATALYST RECOVERY OPERATOR SAMI LAKHANI M.D. Performed By: #### U RMACRERAT #### [address] Microalbumin [Mass/volume] i n UrineOrdered By: Mona Morley on 03-16-2024 Albumin DL <= 20 mg/L (U) [Mass/Vol] 1.4 mg/dL Normal 0.0-1.8 [facility] Comment on above: Performed By: #### U RMACRERAT #### [address] Neutrophils [#/volume] in Bl ood by Automated countOrdered By: Mona Peyman on 03-16-2024 Neutrophils (Bld) [#/Vol] 8.5 10*3/uL High 1.8-7.7 [facility] Comment on above: Performed By: #### C BC #### [address] No Panel InformationOrdered By: Mona Morley on 03-16-2024 Estimated GFR (CKD-EPI) > 60.0 mL/Min [facility] Creatinine Clearance (Chem N/A [facility] Nucleated erythrocytes [Pres ence] in Blood by Automated countOrdered By: Mona Morley on 03-16-2024 Nucleated RBC Auto Ql (Bld) 0.1 /100{WBC} 0-0.5 [facility] PSA Diagnostic (Total Free)o n 03-16-2024 Prostate Spec Ag, Free 0.670 ng/mL Normal [facility] Comment on above: Performed By: #### P SATF #### [address] PSA Total (Not a Screen) 5.090 ng/mL High 0.000-4.000 [facility] Comment on above: Result Comment: Seri al tumor marker results determined by assays using different manufacturers or methods may not be comparable. [facility] veterinary medicine teacher and method: Buy With Fetch DXI, CHEMILUMINESCENT IMMUNOASSAY. Performed By: #### P SATF #### [address] PSA,FREE% 13.1 % Normal [facility] Comment on above: Result Comment: Base d on the work of [place] humphreys al.VANI. 279(19):1542:47.1998 the percent free PSA may be used to determine the relative risk of prostate cancer in individual men.The percent probability of prostate cancer by patient age for men with non-suspicious ROSENDO results and total PSa between 4 and 10 ng/ml is as follows: % Free PSA 50 - 64 yrs. 65 - 75 yrs. 0 - 10 56% 55% 10 - 15 24% 35% 15 - 20 17% 23% 20 - 25 10% 20% >25 5% 9% PERFORMED BY: [place] [address] PATHOLOGIST CATALYST RECOVERY OPERATOR SAMI LAKHANI M.D. Performed By: #### P SATF #### [place] [address] [place] PSA Screen (Yearly Only)on 0 03-16-2024 PSA Screen (Yearly Only) 5.090 ng/mL High 0.000-4.000 [facility] Comment on above: Order Comment: Is pa tient <50 yrs? Medicare does not pay <50.: N What is the date of the last PSA Screen?: NONE Is Medicare the insurance?: N Did you verify eligibility (Dx Time) check TestViewGp: YES TO ALL Result Comment: Seri al tumor marker results determined by assays using different manufacturers or methods may not be comparable. [facility] veterinary medicine teacher and method: Buy With Fetch DXI, CHEMILUMINESCENT IMMUNOASSAY. PERFORMED BY: [place] [address] PATHOLOGIST CATALYST RECOVERY OPERATOR SAMI LAKHANI M.D. Performed By: #### P SAS #### [place] [address] [place] Platelet mean volume [Entiti c volume] in Blood by Automated countOrdered By: Mona Morley on 03-16-2024 Platelet mean volume (Bld) [Entitic vol] 7.4 fL Normal 6.6-10.1 [facility] Comment on above: Performed By: #### C BC #### [place] [address] [place] Platelets [#/volume] in Bloo d by Automated countOrdered By: Mona Morley on 03-16-2024 Platelets (Bld) [#/Vol] 297 10*3/uL Normal 150-450 [facility] Comment on above: Performed By: #### C BC #### [place] [address] [place] Potassium [Moles/volume] in Serum or PlasmaOrdered By: Mona Morley on 03-16-2024 Potassium [Moles/Vol] 4.3 mmol/L Normal 3.5-5.1 [facility] Comment on above: Performed By: #### C MP, TSH3, [id number], T4F, LIPID #### [facility] [address] Prostate Specific Ag Free [M ass/volume] in Serum or PlasmaOrdered By: Mona Morley on 03-16-2024 Free PSA [Mass/Vol] 0.670 ng/mL [facility] Prostate specific Ag [Mass/v olume] in Serum or PlasmaOrdered By: Mona Morley on 03-16-2024 Prostate specific Ag [Mass/Vol] 5.090 ng/mL High 0.000-4.000 [facility] Comment on above: Serial tumor marker results determined by assays using different manufacturers or methods may not be comparable.[facility] veterinary medicine teacher and method:Buy With Fetch DXI, CHEMILUMINESCENT IMMUNOASSAY. Protein [Mass/volume] in Ser um or PlasmaOrdered By: Mona Morley on 03-16-2024 Protein [Mass/Vol] 6.9 g/dL Normal 6.4-8.9 [facility] Comment on above: Performed By: #### C MP, TSH3, [id number], T4F, LIPID #### [facility] [address] Serum globulin measurement b y calculation (mass/volume)Ordered By: Mona Morley on 03-16-2024 Globulin (S) [Mass/Vol] 2.6 g/dL Normal [facility] Comment on above: Performed By: #### C MP, TSH3, [id number], T4F, LIPID #### [facility] [address] Serum or plasma albumin/glob ulin mass ratioOrdered By: Mona Morley on 03-16-2024 Albumin/Globulin [Mass ratio] 1.7 {ratio} Normal [facility] Comment on above: Performed By: #### C MP, TSH3, [id number], T4F, LIPID #### [facility] [address] Serum or plasma anion gap de terminationOrdered By: Mona Morley on 03-16-2024 Anion gap [Moles/Vol] 8.0 mmol/L Normal 6.0-15.0 [facility] Comment on above: Performed By: #### C MP, TSH3, [id number], T4F, LIPID #### [facility] [address] Serum or plasma free prostat e specific antigen (PSA)/total PSA ratioOrdered By: Mona Morley on 03-16-2024 Free PSA/Total PSA [Mass fraction] 13.1 % [facility] Comment on above: Based on the work of [place] et al.VANI. 27919):1542:47.1998 the percent free PSA may be used to determine the relative risk of prostate cancer in individual men.The percent probability of prostate cancer by patient age for men with non-suspicious ROSENDO results and total PSa between 4 and 10 ng/ml is as follows:% Free PSA 50 - 64 yrs. 65 - 75 yrs. 0 - 10 56% 55% 10 - 15 24% 35% 15 - 20 17% 23% 20 - 25 10% 20% >25 5% 9% Serum or plasma high density lipoprotein (HDL) cholesterol measurementOrdered By: Mona Morley on 03-16-2024 Cholesterol in HDL [Mass/Vol] 50 mg/dL Normal 23-92 [facility] Comment on above: HDL CHOL ATP-III CLA SSIFICATION Cardiovascular RiskHDL > or equal to 60 mg/dL LOWHDL < 40 mg/dL HIGH Result Comment: HDL CHOL ATP-III CLASSIFICATION Cardiovascular Risk HDL > or equal to 60 mg/dL LOW HDL < 40 mg/dL HIGH Performed By: #### C MP, TSH3, [id number], T4F, LIPID #### [facility] [address] Serum or plasma total choles terol/high density lipoprotein (HDL) cholesterol mass ratOrdered By: Mona Morley on 03-16-2024 Cholesterol.total/Rachel sterol in HDL [Mass ratio] 4.4 {ratio} Normal <5.0 [facility] Comment on above: Performed By: #### C MP, TSH3, [id number], T4F, LIPID #### [facility] [address] [place] [address] [place] Sodium [Moles/volume] in Ser um or PlasmaOrdered By: Mona Peyman on 03-16-2024 Sodium [Moles/Vol] 140 mmol/L Normal 136-145 [facility] Comment on above: Performed By: #### C MP, TSH3, [id number], T4F, LIPID #### [facility] [address] Testosterone Free and TotalO rdered By: Mona Peyman on 03-16-2024 Testosterone [Mass/Vol] 360 ng/dL Normal 264-916 [facility] Comment on above: Adult male reference interval is based on a population ofhealthy nonobese males (BMI <30) between 19 and 39 yearsold. Travison, et.al. JCEM 2017,102;6304-2645. PMID:[id number]. Result Comment: Adul t male reference interval is based on a population of healthy nonobese males (BMI <30) between 19 and 39 years old. Travison, et.al. JCEM 2017,102;1447-5030. PMID: [id number]. Performed By: #### U RMACRERAT #### [place] [address] [place] Testosterone Free and Totalo n 03-16-2024 Testosterone,Free 8.1 pg/mL Normal 6.8-21.5 [facility] Comment on above: Result Comment: Perf ormed at: CB - [facility] [address] [id number] Machine Sneller: Inocencio Negro PhD, Phone: [phone] Performed at: - [facility] [address] [id number] Machine Sneller: Eleno Pierce MD, Phone: [phone] PERFORMED BY: [place] [address] PATHOLOGIST CATALYST RECOVERY OPERATOR SAMI LAKHANI M.D. Performed By: #### U RMACRERAT #### [facility] [address] Thyrotropin [Units/volume] i n Serum or PlasmaOrdered By: Mona Peyman on 03-16-2024 TSH Qn 1.30 m[IU]/L Normal 0.45-5.33 [facility] Comment on above: Performed By: #### C MP, TSH3, [id number], T4F, LIPID #### [facility] [address] Thyroxine (T4) free [Mass/vo lume] in Serum or PlasmaOrdered By: Mona Morley on 03-16-2024 Free T4 [Mass/Vol] 0.76 ng/dL Normal 0.61-1.12 [facility] Comment on above: Performed By: #### C MP, TSH3, [id number], T4F, LIPID #### [facility] [address] Triglyceride [Mass/volume] i n Serum or PlasmaOrdered By: Mona Morley on 03-16-2024 Triglyceride [Mass/Vol] 270 mg/dL High 0-149 F [facility] Comment on above: TRIG ATP III CLASSIF ICATIONTRIG less than 150 mg/dL NormalTRIG 150-199 mg/dL Borderline highTRIG 200-500 mg/dL High TRIG greater than 500 mg/dL Very highStandard traceable to the Center for Disease Conrtrol and Prevention (CDC) test method. Urea nitrogen [Mass/volume] in Serum or PlasmaOrdered By: Mona Morley on 03-16-2024 Urea nitrogen [Mass/Vol] 17 mg/dL Normal 7-25 [facility] Comment on above: Performed By: #### C MP, TSH3, [id number], T4F, LIPID #### [facility] [address] Urine microalbumin/creatinin e mass ratioOrdered By: Mona Morley on 03-16-2024 Albumin/Creatinine DL <= 20 mg/L (U) [Mass ratio] 6.8 mg/g 0.0-30.0 [facility] Comment on above: 30-300 mg/g indicate s an increased risk for diabetic nephropathy. Greater than 300 mg/g is consistent with clinical nephropathy. (Am. J. Kidney Disease 1995, 25:107) Vitamin D 25 Hydroxy Totalon 03-16-2024 Vitamin D 25 Hydroxy Total 16.6 ng/mL Low 30-100 [facility] Comment on above: Result Comment: HAMIDA MIN D STATUS 25(OH)VITAMIN D RANGE (ng/mL) Deficient <20 Insufficient 20 to <30 Sufficient 30 to 100 Reference: Saman Hodge, Elizabeth COHEN et al. Evaluation,treatment, and prevention of vitamin D deficiency; an Endocrine Society clinical practice guideline. JCEM. 2010; 96(7):191-. PERFORMED BY: [place] [address] PATHOLOGIST [employer] RECOVERY OPERATOR SAMI LAKHANI M.D. Performed By: #### C MP, TSH3, [id number], T4F, LIPID #### [place] [id number] [facility] Vitamin D+Metabolites [Mass/ volume] in Serum or PlasmaOrdered By: Mona Morley on 03-16-2024 Vitamin D+Metabolites [Mass/Vol] 16.6 ng/mL Low 30-100 [facility] Comment on above: VITAMIN D STATUS 25( OH)VITAMIN D RANGE (ng/mL) Deficient <20 Insufficient 20 to <30Sufficient 30 to 100Reference: Saman Hodge, Elizabeth COHEN, et al. Evaluation,treatment, and prevention of vitamin D deficiency; an Endocrine Society clinical practice guideline. JCEM. 2010; 96(7):1911-30. XR shoulder LT min 2V*on XR shoulder LT min 2V* [facility] [address] [place] [address] XRay Report Signed Patient: Ciaran Cancino Jr MR#: [id number] : 1980 Acct:[id number] Age/Sex: 43 / M ADM Date: 03/16/24 Loc: XD Room: Type: [facility] Attending Dr: Mona Morley WINDOW UNIT AIR CONDITIONING MECHANIC-C Copies to: Mona Warchol TERADATA SOLUTION ARCHITECT Ordering Provider: Mona Morley CNP Date of Service: 03/16/24 XR/XR cervical spine 2V: cervical radiculopathy into left shoulder ([id number]) XR/XR shoulder LT min 2V*: left shoulder pain 2 viewscervical spine HISTORY: Neck pain with radiation into the LEFT shoulder COMPARISON: None POSTOPERATIVE CHANGES: None BONY ALIGNMENT: Straightening HYPERMOBILITY::No bending imaging. LISTHESIS:Minor mid cervical degenerative listhesis FRACTURE: None DISC DEGENERATION: Moderate C5-6 spondylosis with posterior endplate spurring FACETS: Unremarkable FORAMEN: Not assessed DENS: Intact CRANIOCERVICAL JUNCTION: Unremarkable SOFT TISSUES: Unremarkable XR/XR cervical spine 2V IMPRESSION: Extensive C5-6 spondylosis. Straightening. 3 views LEFT shoulder Adequate alignment. Intact bony structures. No acute findings. No significant degeneration. IMPRESSION: Unremarkable exam Impression dictated by: Augusto Fischer M.D.03/16/2024 3:35 PM Dictation Location: [place] [address] Transcribed By: [facility] 03/16/24 1535 Dictated By: Augusto Fischer DO 03/16/24 1533 Signed By: 03/16/24 1535 Normal [facility] CT Pelvis w/o Contraston CT Pelvis w/o Contrast CLINICAL HISTORY: Right-sided pain and hematuria for 4 days. COMPARISON: Scrotal ultrasound 02/22/[address] abdomen and pelvis 11/25/2017. TECHNIQUE: Spiral imaging was obtained of the abdomen and pelvis without contrast. All CT scans at this facility use dose modulation, iterative reconstruction, and/or weight based dosing when appropriate to reduce radiation dose to as low as reasonably achievable. FINDINGS: Liver: Mild hepatic steatosis. No significant enlargement mass or lesion. Biliary: No bile duct dilation. Gallbladder is unremarkable. Pancreas: Unremarkable. No mass or duct dilation. Spleen: Unremarkable. No mass. No splenomegaly. Adrenals: Unremarkable. Kidneys: Approximately 2 mm nonobstructing left lower pole renal calculus. Otherwise unremarkable. GI tract: No dilation or abnormal wall thickening. Mild sigmoid diverticulosis. Lymph nodes: No suspicious lymphadenopathy. Mesentery/peritoneum: No ascites or mass. Retroperitoneum: No mass. Vasculature: Minimal atherosclerotic plaquing of a normal caliber abdominal aorta and branch vessels. Pelvis: No mass, ascites, or fluid collection. The nearly decompressed urinary bladder is unremarkable. Bones/soft tissue: Expected postoperative changes in both groins from hernia repairs. No recurrent hernias acute osseous findings. Mild degenerative change of the lumbar spine. Lower thorax: Minimal probable atelectasis and/or scarring. IMPRESSION: AN APPROXIMATELY 2 MM NONOBSTRUCTING LEFT LOWER POLE RENAL CALCULUS. OTHER CHRONIC FINDINGS, NOTED. Report reported and signed by Edward Alves on 02/07/2023 1443 Normal [facility] Specialist Amphetamine Screen Ql (U)Ord ered By: Van Flores on 10-21-2022 Amphetamines Ql (U) Negative Negative [facility] Barbiturates [Presence] in U rineOrdered By: Van Flores on 10-21-2022 Barbiturates Ql (U) Negative Negative [facility] Benzodiazepines [Presence] i n UrineOrdered By: Van Flores on 10-21-2022 Benzodiazepines Ql (U) Negative Negative [facility] Cannabinoids [Presence] in U rine by Screen methodOrdered By: Van Flores on 10-21-2022 Cannabinoids Screen Ql (U) Positive Negative [facility] Comment on above: These are unconfirme d results and should not be used for legal purposes. Drug Cut-Off Concentration: AMPH 1000 ng/mL GENOVEVA 200 ng/mL RIRI 200 ng/mL COCM 300 ng/mL OP 300 ng/mL PCP 25 ng/mL THC 20 ng/mL Laboratory - Drug toxicology Ordered By: Van Flores on 10-21-2022 Opiates Ql (U) Negative Negative [facility] Phencyclidine Screen Ql (U)O rdered By: Van Flores on 10-21-2022 Phencyclidine Ql (U) Negative Negative [facility] Urine cocaine detectionOrder ed By: Van Flores on 10-21-2022 Cocaine Ql (U) Negative Negative [facility] Creatinine and Glomerular fi ltration rate.predicted panel (S/P/Bld)Ordered By: Donato Jason on 10-08-2022 Creatinine [Mass/Vol] 1.18 mg/dL 0.64-1.27 [facility] Estimated glomerular filtrat ion rate (GFR) non- AmericanOrdered By: Donato Jason on 10-08-2022 GFR/1.73 sq M.predicted among non-blacks MDRD (S/P/Bld) [Vol rate/Area] > 60 mL/Min [facility] No Panel InformationOrdered By: Donato Jason on 10-08-2022 Estimated GFR () > 60 mL/Min [facility] Comment on above: GFR estimated refere nce range: According to KDOQI guidelines, <60 ml/min/1.73m2 is sufficient to diagnose a patient with chronic kidney disease. Pharmacy Creatinine Clearance (Chem N/A [facility] Serum or plasma anion gap de terminationOrdered By: Donato Jason on 10-08-2022 Anion gap [Moles/Vol] 9.3 mmol/L 6.0-15.0 [facility] Serum or plasma calcium modesta urement (mass/volume)Ordered By: Donato Jason on 10-08-2022 Calcium [Mass/Vol] 9.2 mg/dL 8.2-10.2 [facility] Serum or plasma chloride lala surement (moles/volume)Ordered By: Donato Jason on 10-08-2022 Chloride [Moles/Vol] 106 mmol/L 95-114 [facility] Serum or plasma glucose modesta urement (mass/volume)Ordered By: Donato Jason on 10-08-2022 Glucose [Mass/Vol] 106 mg/dL 70-100 [facility] Comment on above: ADA recommended refe rence rangeRandom Glucose Reference Range is dependent on time and content of last meal. Glucose of more than 200 mg/dL in a nonstressed, ambulatory subject supports the diagnosis of Diabetes Mellitus. Serum or plasma potassium me asurement (moles/volume)Ordered By: Donato Jason on 10-08-2022 Potassium [Moles/Vol] 3.7 mmol/L 3.5-5.1 [facility] Serum or plasma sodium measu rement (moles/volume)Ordered By: Donato Jason on 10-08-2022 Sodium [Moles/Vol] 139 mmol/L 136-146 [facility] Serum or plasma total carbon dioxide measurement (moles/volume)Ordered By: Donato Jason on 10-08-2022 CO2 [Moles/Vol] 27.4 mmol/L 22.0-30.0 [facility] Serum or plasma urea nitroge n measurement (mass/volume)Ordered By: Donato Jason on 10-08-2022 Urea nitrogen [Mass/Vol] 14 mg/dL 9-23 [facility] COVID-19 Positive/NegativeOr dered By: Donato Jason on 05-21-2022 SARS-CoV-2 (COVID-19) N gene LUCINA+probe Ql (Resp) Negative Negative [facility] Comment on above: Testing for SARS-CoV -2 by RT-PCR This test was developed and its performance characteristics determined by [employer]) and validated at the [facility]. This test has not been FDA cleared or approved. This test has been authorized by FDA under an Emergency Use Authorization (EUA). This test has been validated in accordance with the FDA's Guidance Document (Policy for Diagnostics Testing in Laboratories Certified to Perform High Complexity Testing under CLIA prior to Emergency Use Authorization for Coronavirus Disease-2019 during the Public Health Emergency) issued on January 06, 2020. This test is only authorized for the duration of time the declaration that circumstances exist justifying the authorization of the emergency use of in vitro diagnostic tests for detection of SARS-CoV-2 virus and/or diagnosis of COVID-19 infection under section 564(b)(1) of the Act, 21 U.S.C. 360bbb-3(b)(1), unless the authorization is terminated or revoked sooner. Testing for SARS-CoV -2 by RT-PCRThis test was developed and its performance characteristics determined by [employer] ([employer]) and validated at the [facility]. This test has not been FDA cleared or approved. This test has been authorized by FDA under an Emergency Use Authorization (EUA). This test has been validated in accordance with the FDA's Guidance Document (Policy for Diagnostics Testing in Laboratories Certified to Perform High Complexity Testing under CLIA prior to Emergency Use Authorization for Coronavirus Disease-2019 during the Public Health Emergency) issued on January 06, 2020. This test is only authorized for the duration of time the declaration that circumstances exist justifying the authorization of the emergency use of in vitro diagnostic tests for detection of SARS-CoV-2 virus and/or diagnosis of COVID-19 infection under section 564(b)(1) of the Act, 21 U.S.C. 360bbb-3(b)(1), unless the authorization is terminated or revoked sooner. COVID-19 Positive/NegativeOr dered By: Donato Jason on 05-07-2022 SARS-CoV-2 (COVID-19) N gene LUCINA+probe Ql (Resp) Negative Negative [facility] Comment on above: Testing for SARS-CoV -2 by RT-PCR This test was developed and its performance characteristics determined by [employer] ([employer]) and validated at the [facility]. This test has not been FDA cleared or approved. This test has been authorized by FDA under an Emergency Use Authorization (EUA). This test has been validated in accordance with the FDA's Guidance Document (Policy for Diagnostics Testing in Laboratories Certified to Perform High Complexity Testing under CLIA prior to Emergency Use Authorization for Coronavirus Disease-2019 during the Public Health Emergency) issued on January 06, 2020. This test is only authorized for the duration of time the declaration that circumstances exist justifying the authorization of the emergency use of in vitro diagnostic tests for detection of SARS-CoV-2 virus and/or diagnosis of COVID-19 infection under section 564(b)(1) of the Act, 21 U.S.C. 360bbb-3(b)(1), unless the authorization is terminated or revoked sooner. Testing for SARS-CoV -2 by RT-PCRThis test was developed and its performance characteristics determined by [employer] ([employer]) and validated at the [facility]. This test has not been FDA cleared or approved. This test has been authorized by FDA under an Emergency Use Authorization (EUA). This test has been validated in accordance with the FDA's Guidance Document (Policy for Diagnostics Testing in Laboratories Certified to Perform High Complexity Testing under CLIA prior to Emergency Use Authorization for Coronavirus Disease-2019 during the Public Health Emergency) issued on January 06, 2020. This test is only authorized for the duration of time the declaration that circumstances exist justifying the authorization of the emergency use of in vitro diagnostic tests for detection of SARS-CoV-2 virus and/or diagnosis of COVID-19 infection under section 564(b)(1) of the Act, 21 U.S.C. 360bbb-3(b)(1), unless the authorization is terminated or revoked sooner. US Testicular/Scrotumon 05-2 US Testicular/Scrotum HISTORY: Left testicular pain. COMPARISON: Ultrasound 03/14/2021 TECHNIQUE: Ultrasound examination of the scrotum was performed. FINDINGS: The right testicle measures 4.2 x 3.6 x 2.2 cm. It demonstrates normal echogenicity. No focal masses. Normal blood flow is identified. The right epididymal head measures 1.1 x 1.4 x 1 cm and demonstrates no solid masses. The left testicle measures 4.3 x 2.3 x 1.9 cm. It demonstrates normal echogenicity. No focal masses. Normal blood flow is identified. The left epididymal head measures 0.8 x 1.1 x 0.9 cm and demonstrates no solid masses. Small right-sided hydrocele. No varicocele. Evaluation of the left groin soft tissues demonstrates possible fat-containing hernia measuring up to 4 cm. No peristalsing bowel identified. IMPRESSION: Small right-sided hydrocele. Possible left inguinal hernia. This would be better evaluated with CT of the pelvis without contrast. Report reported and signed by Shad Rodriguez on 02/22/2022 1517 Normal [facility] Director Inpatient Headache Program XR LUMBAR SPINE 2-3 VIEWS (S TANDARD)on 04-21-2020 XR LUMBAR SPINE 2-3 VIEWS (STANDARD) EXAMINATION: XR LUMBAR SPINE 2-3 VIEWS (STANDARD) 04/21/2020 11:06 am HISTORY: ORDERING SYSTEM PROVIDED HISTORY: Low back pain, unspecified back pain laterality, unspecified chronicity, unspecified whether sciatica present, TECHNOLOGIST PROVIDED HISTORY: Illness/Other Reason for exam: chronic lower back pain, pain is worse over past 2 months Cancer History: u Surgery, RadiationHistory: u Encounter Type: Initial Additional signs and symptoms: no known injury ORDERING SYSTEM PROVIDED DIAGNOSIS CODES: M54.5 Low back pain, unspecified back pain laterality, unspecified chronicity, unspecified whether sciatica present COMPARISON: None. FINDINGS: There is 2 degree levoscoliosis of the lumbar spine. On the lateral view, there is straightening of the lumbar alignment, likely related to positioning. The lumbar alignment is otherwise preserved. The vertebral body heights are maintained. There are minimal multilevel spondylotic changes. There is a moderate amount of stool burden. Postsurgical changes from prior ventral hernia repair with mesh placement, partially visualized. The visualized portion of the lung parenchyma is clear. IMPRESSION: Two degree levoscoliosis of the lumbar spine. Normal alignment. Minimal multilevel spondylotic changes. Moderate amount of stool burden. [employer] Workstation ID: [id number] Dictated by: NINFA OHARA on FriApr 21, 2020 1:43:23 PM EDT Transcribed by: SHANAE ANNA on FriApr 21, 2020 1:46:18 PM EDT Finalized by: NINFA OHARA on FriApr 21, 2020 1:58:12 PM EDT [facility] Comment on above: Order Comment: Injur y/Trauma or Illness?:Illness/Other How long have you had these symptoms (acute/chronic)?:Chronic Reason for exam?:chronic lower back pain, pain is worse over past 2 months History of cancer?:u Surgeries, chemotherapy, or radiation?:u Type of Exam?:Initial Additional signs and symptoms?:no known injury XR Lumbar Spine 2-3 Views (S tandard)on 04-21-2020 Two degree levoscoliosis of the lumbar spine. Normal alignment. Minimal multilevel spondylotic changes. Moderate amount of stool burden. [employer] Workstation ID: [id number] [facility] EXAMINATION: XR LUMBAR SPINE 2-3 VIEWS (STANDARD) 04/21/2020 11:06 am HISTORY: ORDERING SYSTEM PROVIDED HISTORY: Low back pain, unspecified back pain laterality, unspecified chronicity, unspecified whether sciatica present, TECHNOLOGIST PROVIDED HISTORY: Illness/Other Reason for exam: chronic lower back pain, pain is worse over past 2 months Cancer History: u Surgery, RadiationHistory: u Encounter Type: Initial Additional signs and symptoms: no known injury ORDERING SYSTEM PROVIDED DIAGNOSIS CODES: M54.5 Low back pain, unspecified back pain laterality, unspecified chronicity, unspecified whether sciatica present COMPARISON: None. FINDINGS: There is 2 degree levoscoliosis of the lumbar spine. On the lateral view, there is straightening of the lumbar alignment, likely related to positioning. The lumbar alignment is otherwise preserved. The vertebral body heights are maintained. There are minimal multilevel spondylotic changes. There is a moderate amount of stool burden. Postsurgical changes from prior ventral hernia repair with mesh placement, partially visualized. The visualized portion of the lung parenchyma is clear. [facility] Interface, Rad In [employer] - 04/21/2020 2:00 PM EDT EXAMINATION: XR LUMBAR SPINE 2-3 VIEWS (STANDARD) 04/21/2020 11:06 am HISTORY: ORDERING SYSTEM PROVIDED HISTORY: Low back pain, unspecified back pain laterality, unspecified chronicity, unspecified whether sciatica present, TECHNOLOGIST PROVIDED HISTORY: Illness/Other Reason for exam: chronic lower back pain, pain is worse over past 2 months Cancer History: u Surgery, RadiationHistory: u Encounter Type: Initial Additional signs and symptoms: no known injury ORDERING SYSTEM PROVIDED DIAGNOSIS CODES: M54.5 Low back pain, unspecified back pain laterality, unspecified chronicity, unspecified whether sciatica present COMPARISON: None. FINDINGS: There is 2 degree levoscoliosis of the lumbar spine. On the lateral view, there is straightening of the lumbar alignment, likely related to positioning. The lumbar alignment is otherwise preserved. The vertebral body heights are maintained. There are minimal multilevel spondylotic changes. There is a moderate amount of stool burden. Postsurgical changes from prior ventral hernia repair with mesh placement, partially visualized. The visualized portion of the lung parenchyma is clear. IMPRESSION: Two degree levoscoliosis of the lumbar spine. Normal alignment. Minimal multilevel spondylotic changes. Moderate amount of stool burden. [email or web address] Workstation ID: [id number] [facility] Vital Signs Date Time Vital Sign Value Performing Clinician Facility 01-04-2025 14:03-0400 Body mass index (BMI) [Ratio] 32.71 kg/m2 Kenney De La O AGRICULTURAL CROP FARM MANAGER-BIOLOGY MANAGER Work Phone: [facility] 01-04-2025 14:03-0400 Body weight 103.42 kg Kenney De La O AGRICULTURAL CROP FARM MANAGER-BIOLOGY MANAGER Work Phone: [facility] 01-04-2025 14:03-0400 Diastolic blood pressure 110 mm[Hg] Kenney De La O AGRICULTURAL CROP FARM MANAGER-BIOLOGY MANAGER Work Phone: [facility] 01-04-2025 14:03-0400 Heart rate 99 /min Kenney Dina-Nossek AGRICULTURAL CROP FARM MANAGER-BIOLOGY MANAGER Work Phone: [facility] 01-04-2025 14:03-0400 Systolic blood pressure 170 mm[Hg] Kenney Dina-Nossek AGRICULTURAL CROP FARM MANAGER-BIOLOGY MANAGER Work Phone: [facility] 12-15-2024 12:30-0400 Diastolic blood pressure 101 mm[Hg] Anat Villagomez [facility] 12-15-2024 12:30-0400 Heart rate 90 /min Anat Villagomez [facility] 12-15-2024 12:30-0400 Mean blood pressure 119 mm[Hg] Anat Villagomez [facility] 12-15-2024 12:30-0400 Respiratory rate 14 /min Anat Villagomez [facility] 12-15-2024 12:30-0400 Systolic blood pressure 156 mm[Hg] Anat Villagomez [facility] 11-30-2024 11:23-0500 Body mass index (BMI) [Ratio] 30.56 kg/m2 Kenney Dina-Nossek AGRICULTURAL CROP FARM MANAGER-BIOLOGY MANAGER Work Phone: [facility] 11-30-2024 11:23-0500 Body weight 96.62 kg Kenney Dina-Nossek AGRICULTURAL CROP FARM MANAGER-BIOLOGY MANAGER Work Phone: [facility] 11-30-2024 11:23-0500 Diastolic blood pressure 86 mm[Hg] Kenney Dina-Nossek AGRICULTURAL CROP FARM MANAGER-BIOLOGY MANAGER Work Phone: [facility] 11-30-2024 11:23-0500 Heart rate 76 /min Kenney Dina-Nossek AGRICULTURAL CROP FARM MANAGER-BIOLOGY MANAGER Work Phone: [facility] 11-30-2024 11:23-0500 Systolic blood pressure 138 mm[Hg] Kenney Dina-Nossek AGRICULTURAL CROP FARM MANAGER-BIOLOGY MANAGER Work Phone: [facility] 11-21-2024 06:41-0500 Body height 177.8 cm Connor Pineda MD Work Phone: [facility] 11-21-2024 06:41-0500 Body weight 99.79 kg Connor Pineda MD Work Phone: [facility] 11-16-2024 13:24-0500 Body height 177.8 cm Mona Warchol WINDOW UNIT AIR CONDITIONING MECHANIC Work Phone: [facility] 11-16-2024 13:24-0500 Body mass index (BMI) [Ratio] 30.07 kg/m2 Mona Warchol WINDOW UNIT AIR CONDITIONING MECHANIC Work Phone: [facility] 11-16-2024 13:24-0500 Body temperature 97.9 [degF] Mona Warchol WINDOW UNIT AIR CONDITIONING MECHANIC Work Phone: [facility] 11-16-2024 13:24-0500 Body weight 95.07 kg Mona Warchol WINDOW UNIT AIR CONDITIONING MECHANIC Work Phone: [facility] 11-16-2024 13:24-0500 Diastolic blood pressure 88 mm[Hg] Mona Warchol W[employer]OW UNIT AIR CONDITIONING MECHANIC Work Phone: [facility] 11-16-2024 13:24-0500 Heart rate 88 /min Mona Warchol W[employer]OW UNIT AIR CONDITIONING MECHANIC Work Phone: [facility] 11-16-2024 13:24-0500 SaO2% (BldA) [Mass fraction] 97 % Mona Warchol [employer] UNIT AIR CONDITIONING MECHANIC Work Phone: [facility] 11-16-2024 13:24-0500 Systolic blood pressure 138 mm[Hg] Mona Warchol W[employer]OW UNIT AIR CONDITIONING MECHANIC Work Phone: [facility] 10-18-2024 14:46-0500 Body height 177.8 cm Mona Warchol WINDOW UNIT AIR CONDITIONING MECHANIC Work Phone: [facility] 10-18-2024 14:46-0500 Body mass index (BMI) [Ratio] 30.71 kg/m2 Mona Warchol WINDOW UNIT AIR CONDITIONING MECHANIC Work Phone: [facility] 10-18-2024 14:46-0500 Body temperature 97.9 [degF] Mona Warchol WINDOW UNIT AIR CONDITIONING MECHANIC Work Phone: [facility] 10-18-2024 14:46-0500 Body weight 97.07 kg Mona Warchol WINDOW UNIT AIR CONDITIONING MECHANIC Work Phone: [facility] 10-18-2024 14:46-0500 Diastolic blood pressure 80 mm[Hg] Mona Warchol W[employer]OW UNIT AIR CONDITIONING MECHANIC Work Phone: [facility] 10-18-2024 14:46-0500 Heart rate 83 /min Mona Warchol W[employer]OW UNIT AIR CONDITIONING MECHANIC Work Phone: [facility] 10-18-2024 14:46-0500 SaO2% (BldA) [Mass fraction] 97 % Mona Warchol W[employer]OW UNIT AIR CONDITIONING MECHANIC Work Phone: [facility] 10-18-2024 14:46-0500 Systolic blood pressure 124 mm[Hg] Mona Warchol W[employer]OW UNIT AIR CONDITIONING MECHANIC Work Phone: [facility] 10-12-2024 15:45-0500 Body mass index (BMI) [Ratio] 31.28 kg/m2 Kenney Dina-Nossek AGRICULTURAL CROP FARM MANAGER-BIOLOGY MANAGER Work Phone: [facility] 10-12-2024 15:45-0500 Body weight 98.88 kg Kenney Dina-Nossek AGRICULTURAL CROP FARM MANAGER-BIOLOGY MANAGER Work Phone: [facility] [facility] 10-12-2024 15:45-0500 Diastolic blood pressure 90 mm[Hg] Kenney Dina-Nossek [employer]GRICULTURAL CROP FARM MANAGER-BIOLOGY MANAGER Work Phone: [facility] 10-12-2024 15:45-0500 Heart rate 95 /min Kenney Dina-Nossek AGRICULTURAL CROP FARM MANAGER-BIOLOGY MANAGER Work Phone: [facility] 10-12-2024 15:45-0500 Systolic blood pressure 142 mm[Hg] Kenney Dina-Nossek AGRICULTURAL CROP FARM MANAGER-BIOLOGY MANAGER Work Phone: [facility] 10-08-2024 08:13-0500 Body height 177.8 cm Marcela Mayen MD Work Phone: [facility] 10-08-2024 08:13-0500 Body mass index (BMI) [Ratio] 30.05 kg/m2 Marcela aMyen MD Work Phone: [facility] 10-08-2024 08:13-0500 Body weight 95 kg Marcela Mayen MD Work Phone: [facility] 10-08-2024 08:13-0500 Diastolic blood pressure 80 mm[Hg] Marcela Mayen MD Work Phone: [facility] 10-08-2024 08:13-0500 Heart rate 76 /min Marcela Mayen MD Work Phone: [facility] 10-08-2024 08:13-0500 Systolic blood pressure 120 mm[Hg] Marcela Mayen MD Work Phone: [facility] 09-09-2024 10:08-0500 Body height 177.8 cm Mona Garzachol WINDOW UNIT AIR CONDITIONING MECHANIC Work Phone: [facility] 09-09-2024 10:08-0500 Body mass index (BMI) [Ratio] 31.38 kg/m2 Mona Warchol WINDOW UNIT AIR CONDITIONING MECHANIC Work Phone: [facility] 09-09-2024 10:08-0500 Body temperature 97 [degF] Mona Warchol WINDOW UNIT AIR CONDITIONING MECHANIC Work Phone: [facility] 09-09-2024 10:08-0500 Body weight 99.2 kg Mona Warchol [employer]IND[employer] UNIT AIR CONDITIONING MECHANIC Work Phone: [facility] 09-09-2024 10:08-0500 Diastolic blood pressure 82 mm[Hg] Mona Warchol WINDOW UNIT AIR CONDITIONING MECHANIC Work Phone: [facility] 09-09-2024 10:08-0500 Heart rate 61 /min Mona Warchol WINDOW UNIT AIR CONDITIONING MECHANIC Work Phone: [facility] 09-09-2024 10:08-0500 SaO2% (BldA) [Mass fraction] 97 % Mona Warchol WINDOW UNIT AIR CONDITIONING MECHANIC Work Phone: [facility] 09-09-2024 10:08-0500 Systolic blood pressure 138 mm[Hg] Mona Warchol [employer]OW UNIT AIR CONDITIONING MECHANIC Work Phone: [facility] 2024 10:57-0400 Body mass index (BMI) [Ratio] 31.85 kg/m2 Kenney Dina-Nossek A[employer]ICULTURAL CR[employer] FARM MANAGER-BIOLOGY MANAGER Work Phone: [facility] 2024 10:57-0400 Body weight 100.7 kg Kenney Dina-Nossek AGRICULTURAL CROP FARM MANAGER-BIOLOGY MANAGER Work Phone: [facility] 2024 10:57-0400 Diastolic blood pressure 82 mm[Hg] Kenney Dina-Nossek AGRICULTURAL CROP FARM MANAGER-BIOLOGY MANAGER Work Phone: [facility] 2024 10:57-0400 Heart rate 84 /min Kenney Dina-Nossek AGRICULTURAL CROP FARM MANAGER-BIOLOGY MANAGER Work Phone: [facility] 2024 10:57-0400 Systolic blood pressure 116 mm[Hg] Kenney Dina-Nossek AGRICULTURAL CROP FARM MANAGER-BIOLOGY MANAGER Work Phone: [facility] 07-16-2024 08:38-0400 Body height 177.8 cm Mona Warchol WINDOW UNIT AIR CONDITIONING MECHANIC Work Phone: [facility] 07-16-2024 08:38-0400 Body mass index (BMI) [Ratio] 30.59 kg/m2 Mona Warchol WIND[employer] UNIT AIR CONDITIONING MECHANIC Work Phone: [facility] 07-16-2024 08:38-0400 Body temperature 97.11 [degF] Mona Warchol WINDOW UNIT AIR CONDITIONING MECHANIC Work Phone: [facility] 07-16-2024 08:38-0400 Body weight 96.71 kg Mona Warchol WINDOW UNIT AIR CONDITIONING MECHANIC Work Phone: [facility] 07-16-2024 08:38-0400 Diastolic blood pressure 82 mm[Hg] Mona Warchol WINDOW UNIT AIR CONDITIONING MECHANIC Work Phone: [facility] 07-16-2024 08:38-0400 Heart rate 83 /min Mona Warchol WINDOW UNIT AIR CONDITIONING MECHANIC Work Phone: [facility] 07-16-2024 08:38-0400 SaO2% (BldA) [Mass fraction] 98 % Mona Warchol WINDOW UNIT AIR CONDITIONING MECHANIC Work Phone: [facility] 07-16-2024 08:38-0400 Systolic blood pressure 132 mm[Hg] Mona Warchol [employer] UNIT AIR CONDITIONING MECHANIC Work Phone: [facility] 07-13-2024 14:58-0400 Blood Pressure Location Meenu Orzech [facility] 07-13-2024 14:58-0400 Diastolic blood pressure 68 mm[Hg] Meenu Orzech [facility] 07-13-2024 14:58-0400 Heart rate 78 /min Meenu Orzech [facility] 07-13-2024 14:58-0400 Systolic blood pressure 106 mm[Hg] Meenu Orzech [facility] 06-16-2024 13:07-0400 Body mass index (BMI) [Ratio] 30.56 kg/m2 Kenney Dina-Nossek AGRICULTURAL [employer] FARM MANAGER-BIOLOGY MANAGER Work Phone: [facility] 06-16-2024 13:07-0400 Body weight 96.62 kg Kenney Dina-Nossek AGRICULTURAL CR[employer] FARM MANAGER-BIOLOGY MANAGER Work Phone: [facility] 06-16-2024 13:07-0400 Diastolic blood pressure 88 mm[Hg] Kenney Dina-Nossek AGRICULTURAL CR[employer] FARM MANAGER-BIOLOGY MANAGER Work Phone: [facility] 06-16-2024 13:07-0400 Heart rate 90 /min Kenney Dina-Nossek AGRICULTURAL CROP FARM MANAGER-BIOLOGY MANAGER Work Phone: [facility] 06-16-2024 13:07-0400 Systolic blood pressure 148 mm[Hg] Kenney Dina-Nossek AGRICULTURAL CROP FARM MANAGER-BIOLOGY MANAGER Work Phone: [facility] 06-14-2024 13:15-0400 Body height 177.8 cm MD Connor Pineda Work Phone: [facility] 06-14-2024 13:15-0400 Body mass index (BMI) [Ratio] 30.8 kg/m2 MD Connor Pineda Work Phone: [facility] 06-14-2024 13:15-0400 Body weight 97.52 kg MD Connor Pineda Work Phone: [facility] 06-14-2024 13:15-0400 Diastolic blood pressure 94 mm[Hg] MD Connor Pineda Work Phone: [facility] 06-14-2024 13:15-0400 Heart rate 73 /min MD Connor Pineda Work Phone: [facility] 06-14-2024 13:15-0400 Systolic blood pressure 147 mm[Hg] MD Connor Pineda Work Phone: [facility] 05-27-2024 14:03-0400 Diastolic blood pressure 66 mm[Hg] MD Connor Pineda Work Phone: [facility] 05-27-2024 14:03-0400 Heart rate 75 /min MD Connor Pineda Work Phone: [facility] 05-27-2024 14:03-0400 Respiratory rate 16 /min MD Connor Pineda Work Phone: [facility] 05-27-2024 14:03-0400 SaO2% (BldA) [Mass fraction] 96 % MD Connor Pineda Work Phone: [facility] 05-27-2024 14:03-0400 Systolic blood pressure 104 mm[Hg] MD Connor Pineda Work Phone: [facility] 05-27-2024 11:20-0400 Body height 177.8 cm MD Connor Pineda Work Phone: [facility] 05-27-2024 11:20-0400 Body weight 99.79 kg MD Connor Pineda Work Phone: [facility] 11-13-2023 09:31-0500 Body height 177.8 cm Mona Warmilly WINDOW UNIT AIR CONDITIONING MECHANIC Work Phone: [facility] 11-13-2023 09:31-0500 Body mass index (BMI) [Ratio] 30.56 kg/m2 Mona Garzachol [employer]OW [employer]IT AIR CONDITIONING MECHANIC Work Phone: [facility] 11-13-2023 09:31-0500 Body temperature 97.59 [degF] Mona Warchol WINDOW UNIT AIR CONDITIONING MECHANIC Work Phone: [facility] 11-13-2023 09:31-0500 Body weight 96.62 kg Mona Warchol WINDOW UNIT AIR CONDITIONING MECHANIC Work Phone: [facility] 11-13-2023 09:31-0500 Diastolic blood pressure 112 mm[Hg] Mona Warchol W[employer] UNIT AIR CONDITIONING MECHANIC Work Phone: [facility] 11-13-2023 09:31-0500 Heart rate 80 /min Mona Warchol [employer]IT AIR CONDITIONING MECHANIC Work Phone: [facility] 11-13-2023 09:31-0500 SaO2% (BldA) [Mass fraction] 97 % Mona Warchol W[employer] UNIT AIR CONDITIONING MECHANIC Work Phone: [facility] 11-13-2023 09:31-0500 Systolic blood pressure 166 mm[Hg] Mona Garzachol WINDOW UNIT AIR CONDITIONING MECHANIC Work Phone: [facility] 06-27-2023 10:00-0400 Body height 177.8 cm Juan C Johnson Other [employer] Other 06-27-2023 10:00-0400 Body mass index (BMI) [Ratio] 26.97 kg/m2 Juan C Johnson Other [employer] Other 06-27-2023 10:00-0400 Body weight 85.28 kg Juan C Anjelicaner Other [employer] Other 06-27-2023 10:00-0400 Diastolic blood pressure 78 mm[Hg] Juan C Elizondoovanner Other [employer] Other 06-27-2023 10:00-0400 Systolic blood pressure 130 mm[Hg] Juan C Scovanner Other [facility] [employer] Other 10-21-2022 15:28-0500 Diastolic blood pressure 74 mm[Hg] MD Connor Pineda Work Phone: [facility] 10-21-2022 15:28-0500 Heart rate 76 /min MD Connor Pineda Work Phone: [facility] 10-21-2022 15:28-0500 Respiratory rate 16 /min MD Connor Pineda Work Phone: [facility] 10-21-2022 15:28-0500 SaO2% (BldA) [Mass fraction] 93 % MD Connor Pineda Work Phone: [facility] 10-21-2022 15:28-0500 Systolic blood pressure 111 mm[Hg] MD Connor Pineda Work Phone: [facility] 10-21-2022 14:53-0500 Body temperature 98 [degF] MD Connor Pineda Work Phone: [facility] 10-21-2022 14:23-0500 Inhaled oxygen flow rate 8 L/min MD Connor Pineda Work Phone: [facility] 10-21-2022 12:19-0500 Body height 180.34 cm MD Connor Pineda Work Phone: [facility] 10-21-2022 12:19-0500 Body mass index (BMI) [Ratio] 26.6 kg/m2 MD Connor Pineda Work Phone: [facility] 10-21-2022 12:19-0500 Body weight 86.63 kg MD Connor Pineda Work Phone: [facility] 04-25-2022 14:30-0400 Body height 177.8 cm MD Connor Pineda Work Phone: [facility] 04-25-2022 14:30-0400 Body temperature 98.5 [degF] MD Connor Pineda Work Phone: [facility] 04-25-2022 14:30-0400 Body weight 82.3 kg MD Connor Pineda Work Phone: [facility] 04-25-2022 14:30-0400 Diastolic blood pressure 97 mm[Hg] MD Connor Pineda Work Phone: [facility] 04-25-2022 14:30-0400 Heart rate 94 /min MD Connor Pineda Work Phone: [facility] 04-25-2022 14:30-0400 Respiratory rate 18 /min MD Connor Pineda Work Phone: [facility] 04-25-2022 14:30-0400 SaO2% (BldA) [Mass fraction] 99 % MD Connor Pineda Work Phone: [facility] 04-25-2022 14:30-0400 Systolic blood pressure 137 mm[Hg] MD Connor Pineda Work Phone: [facility] Encounters Encounter Date Encounter Type Care Provider Facility Start: 01-04-2025 End: 01-04-2025 Bamboo flowsheet Kenney Arroyo-Harris AGRICULTURAL [employer] FARM MANAGER-BIOLOGY MANAGER Work Phone: [facility] Start: 01-04-2025 End: 01-04-2025 Bamboo flowsheet Kenney Grangeror-Nossek AGRICULTURAL CROP FARM MANAGER-BIOLOGY MANAGER Work Phone: [facility] Start: 01-04-2025 End: 01-04-2025 Office outpatient visit 25 minutes Kenney Grangeror-Nossek AGRICULTURAL CROP FARM MANAGER-BIOLOGY MANAGER Work Phone: [facility] Comment on above: Anxiety (Primary Dx) ; Bipolar 1 disorder (CMS/HCC); Insomnia, unspecified type Start: 01-04-2025 End: 01-04-2025 ambulatory KENNEY ARROYO-NOSSEK Not Available Start: 12-22-2024 ambulatory Facility:[facility] Start: 12-22-2024 End: 12-22-2024 ambulatory GAURAV CLINE Not Available Start: 12-20-2024 End: 12-20-2024 ambulatory ANITRAABEL YAP Not Available Start: 12-15-2024 End: 12-15-2024 ambulatory Anat Villagomez Facility:[facility] Start: 12-15-2024 End: 12-15-2024 Patient encounter procedure Anat Villagomez [facility] Start: 12-13-2024 End: 12-13-2024 ambulatory Meenu X Orzech Facility: [place] Start: 12-06-2024 End: 12-06-2024 Lab Drop off Meenu X Orzech [facility] Start: 12-06-2024 End: 12-06-2024 ambulatory Meenu X Orzech Facility: [facility] Start: 12-06-2024 End: 12-06-2024 Patient encounter procedure Meenu X Orzech [facility] Start: 12-01-2024 End: 12-01-2024 Patient encounter procedure Connor Pineda MD Work Phone: [facility] [place] Work Phone: Start: 12-01-2024 End: 12-01-2024 ambulatory Connor Pineda MD Work Phone: [facility] Work Phone: Start: 11-30-2024 End: 11-30-2024 Office outpatient visit 15 minutes Kenney De La O AGRICULTURAL CROP FARM MANAGER-BIOLOGY MANAGER Work Phone: [facility] Comment on above: Bipolar 1 disorder ( CMS/HCC); Anxiety; Insomnia, unspecified type Start: 11-30-2024 End: 11-30-2024 ambulatory KENNEY DE LA O Not Available Start: 11-29-2024 End: 11-29-2024 ambulatory GAURAV FENGNETT Not Available Start: 11-29-2024 End: 11-29-2024 Telephone encounter Ebony Lake MA [facility] Comment on above: Bipolar 1 disorder ( CMS/HCC); Anxiety Start: 11-25-2024 End: 11-25-2024 ambulatory Meenu X Orzech Facility:[facility] Start: 11-25-2024 End: 11-25-2024 Patient encounter procedure Meenu X Ormartin [facility] Start: 11-16-2024 End: 11-16-2024 Office outpatient visit 25 minutes Mona Morley [employer]IT AIR CONDITIONING MECHANIC Work Phone: [facility] Comment on above: Degeneration of inte rvertebral disc of lumbar region with discogenic back pain and lower extremity pain (Primary Dx); Lumbar degenerative disc disease; Seasonal allergic rhinitis due to pollen; Anxiety; Hypertensive heart disease without heart failure (CMS/HCC); Essential (primary) hypertension (CMS/HCC); Strain of left trapezius muscle, sequela; Mixed hyperlipidemia (CMS/HCC); Benign prostatic hyperplasia with incomplete bladder emptying; Cigarette nicotine dependence without complication; Gastroesophageal reflux disease without esophagitis Start: 11-16-2024 End: 11-16-2024 ambulatory MONA WARCHOL Not Available Start: 10-19-2024 End: 10-19-2024 Social Work Gaurav Henley Son [facility] Work Phone: [facility] Comment on above: Bipolar 1 disorder ( CMS/HCC); Anxiety Start: 10-18-2024 End: 10-18-2024 Office outpatient visit 25 minutes Mona Peyman [employer]IT AIR CONDITIONING MECHANIC Work Phone: [facility] Comment on above: Degeneration of inte rvertebral disc of lumbar region with discogenic back pain and lower extremity pain (Primary Dx); Lumbar degenerative disc disease; Mixed hyperlipidemia (CMS/HCC); Seasonal allergic rhinitis due to pollen; Hypertensive heart disease without heart failure (CMS/HCC); Essential (primary) hypertension (CMS/HCC); Cigarette nicotine dependence without complication Start: 10-18-2024 End: 10-18-2024 ambulatory MONA WARCHOL Not Available Start: 10-18-2024 End: 10-18-2024 Bamboo flowsheet Mona Morley W[employer] UNIT AIR CONDITIONING MECHANIC Work Phone: [facility] Start: 10-18-2024 End: 10-18-2024 Bamboo flowsheet Mona Morley W[employer] UNIT AIR CONDITIONING MECHANIC Work Phone: [facility] Start: 10-12-2024 End: 10-12-2024 Office outpatient visit 25 minutes Kenney Horner Dina-Nossek AGRICULTURAL CROP FARM MANAGER-BIOLOGY MANAGER Work Phone: [facility] Comment on above: Bipolar 1 disorder ( CMS/HCC); Anxiety Start: 10-12-2024 End: 10-12-2024 ambulatory KENNEY Horner DINA-NOSSEK Not Available Start: 10-12-2024 End: 10-12-2024 Bamboo flowsheet Kenney Horner Dina-Nossek AGRICULTURAL CROP FARM MANAGER-BIOLOGY MANAGER Work Phone: [facility] Start: 10-12-2024 End: 10-12-2024 Bamboo flowsheet Kenney Horner Dina-Nossek AGRICULTURAL CROP FARM MANAGER-BIOLOGY MANAGER Work Phone: [facility] Start: 10-08-2024 End: 10-08-2024 Subsequent hospital visit by physician [facility] Work Phone: [facility] Comment on above: Chronic bilateral lo w back pain without sciatica [M54.50, G89.29] Start: 10-08-2024 End: 10-08-2024 ambulatory CONNOR DELEON OROVADA Facility:[facility] Start: 10-08-2024 End: 10-08-2024 Patient encounter procedure Marcela Mayen MD Work Phone: [facility] Comment on above: Chronic bilateral lo w back pain without sciatica (Primary Dx); Lumbar radiculitis; Bipolar 1 disorder (HCC); Chronic pain syndrome Start: 09-22-2024 End: 09-22-2024 Telephone encounter Marcela Mayen MD Work Phone: [facility] Comment on above: Appointment (New pat ient call left message) Start: 09-09-2024 End: 09-09-2024 Bamboo flowsheet Mona Morley WINDOW [employer]IT AIR CONDITIONING MECHANIC Work Phone: [facility] Start: 09-09-2024 End: 09-09-2024 Bamboo flowsheet Mona Morley WINDOW UNIT AIR CONDITIONING MECHANIC Work Phone: [facility] Start: 09-09-2024 End: 09-09-2024 Office outpatient visit 25 minutes Mona Morley W[employer]IT AIR CONDITIONING MECHANIC Work Phone: [facility] Comment on above: Need for follow-up c are after discharge (Primary Dx); Strain of left trapezius muscle, sequela; Benign prostatic hyperplasia with incomplete bladder emptying; Lumbar degenerative disc disease; Cigarette nicotine dependence without complication; Right groin pain; Degeneration of intervertebral disc of lumbar region with discogenic back pain and lower extremity pain Start: 09-09-2024 End: 09-09-2024 ambulatory MONA MORLEY Not Available Start: 09-06-2024 Non-patient / Non-visit Connor Pineda MD Work Phone: [facility] Work Phone: Start: 08-31-2024 End: 08-31-2024 ambulatory Meenu X Orzech Facility:[facility] [place] Start: 08-31-2024 End: 08-31-2024 Patient encounter procedure Meenu X Orzech [facility] Start: 08-30-2024 ambulatory Meenu X Orzech Facilit y:[facility] Start: 08-25-2024 End: 08-25-2024 Bamboo flowsheet Gaurav Cline [facility] Work Phone: [facility] Start: 08-25-2024 End: 08-25-2024 Bamboo flowsheet Gaurav Cline [facility] Work Phone: [facility] Start: 08-25-2024 End: 08-25-2024 Social Work Gaurav Cline [facility] Work Phone: [facility] Comment on above: Bipolar 1 disorder ( CMS/HCC); Anxiety Start: 2024 End: 2024 Bamboo flowsheet Kenney Arroyo-Nossek AGRICULTURAL CROP FARM MANAGER-BIOLOGY MANAGER Work Phone: [facility] Start: 2024 End: 2024 Bamboo flowsheet Kenney Grangeror-Nossek AGRICULTURAL CROP FARM MANAGER-BIOLOGY MANAGER Work Phone: [facility] Start: 2024 End: 2024 Office outpatient visit 15 minutes Kenney Grangeror-Nossek AGRICULTURAL CROP FARM MANAGER-BIOLOGY MANAGER Work Phone: [facility] Comment on above: Bipolar 1 disorder ( CMS/HCC); Anxiety Start: 2024 End: 2024 ambulatory KENNEY ARROYO-NOSSEK Not Available Start: 07-19-2024 End: 07-19-2024 Patient encounter procedure MD Connor Pineda Work Phone: [facility] [place] Work Phone: Start: 07-19-2024 End: 07-19-2024 ambulatory MD Connor Pineda Work Phone: [facility] Work Phone: Start: 07-16-2024 End: 07-16-2024 Office outpatient visit 25 minutes Mona Morley [employer] AIR CONDITIONING MECHANIC Work Phone: [facility] Comment on above: Hypertensive heart d isease without heart failure (CMS/HCC) (Primary Dx); Lumbar degenerative disc disease; Essential (primary) hypertension (CMS/HCC); Strain of left trapezius muscle, sequela; Bipolar 1 disorder (CMS/HCC); Mixed hyperlipidemia (CMS/HCC); Benign prostatic hyperplasia with incomplete bladder emptying; Cigarette nicotine dependence without complication Start: 07-16-2024 End: 07-16-2024 ambulatory MONA PEYMAN Not Available Start: 07-14-2024 End: 07-14-2024 Bamboo flowsheet Gaurav Cline [facility] Work Phone: [facility] Start: 07-14-2024 End: 07-14-2024 Bamboo flowsheet Gaurav Cline [facility] Work Phone: [facility] Start: 07-14-2024 End: 07-14-2024 Social Work Gaurav Cline [facility] Work Phone: [facility] Comment on above: Bipolar 1 disorder ( CMS/HCC); Anxiety Start: 07-13-2024 End: 07-13-2024 ambulatory Meenu X Orzech Facility:[facility] [place] Start: 07-13-2024 End: 07-13-2024 Patient encounter procedure Meenu X Orzech [facility] Start: 06-22-2024 ambulatory MONA GREGMILLY Facility:[facility] Start: 06-21-2024 End: 06-22-2024 Refill [place]ony [place] [facility] Comment on above: Lumbar degenerative disc disease Start: 06-16-2024 End: 06-16-2024 Bamboo flowsheet Kenney Evens Dina-Nossek AGRICULTURAL CROP FARM MANAGER-BIOLOGY MANAGER Work Phone: [facility] Start: 06-16-2024 End: 06-16-2024 Bamboo flowsheet Kenney Evens Dina-Nossek AGRICULTURAL CROP FARM MANAGER-BIOLOGY MANAGER Work Phone: [facility] Start: 06-16-2024 End: 06-16-2024 Office outpatient visit 15 minutes Kenney Horner Dina-Nossek AGRICULTURAL CROP FARM MANAGER-BIOLOGY MANAGER Work Phone: [facility] Comment on above: Bipolar 1 disorder ( CMS/HCC); Anxiety Start: 06-16-2024 End: 06-16-2024 ambulatory KENNEY ARROYO-NOSSEK Not Available Start: 06-14-2024 End: 06-14-2024 ambulatory MD Connor Pineda Work Phone: [facility] Work Phone: Start: 06-14-2024 End: 06-14-2024 Patient encounter procedure MD Connor Pineda Work Phone: [facility] Work Phone: Start: 05-27-2024 Non-patient / Non-visit MD Ryann Pineda Work Phone: [facility] Work Phone: Start: 05-27-2024 End: 05-27-2024 Admission to same day surgery center MD Connor Pineda Work Phone: [facility] Work Phone: Start: 05-27-2024 End: 05-27-2024 ambulatory MD Connor Pineda Work Phone: [facility] Work Phone: Start: 05-17-2024 End: 05-17-2024 ambulatory MONA WARCHOL Not Available Start: 05-10-2024 End: 05-10-2024 ambulatory KENNEY M DINA-NOSSEK Not Available Start: 04-14-2024 End: 04-14-2024 ambulatory KENNEY M DINA-NOSSEK Not Available Start: 04-13-2024 End: 04-13-2024 ambulatory MONA WARCHOL Not Available Start: 04-05-2024 End: 04-05-2024 ambulatory MONA WARCHOL Not Available Start: 03-22-2024 End: 03-22-2024 ambulatory MONA WARCHOL Not Available Start: 03-16-2024 End: 03-16-2024 Patient encounter procedure MD Connor Pineda Work Phone: [facility] Work Phone: Start: 03-16-2024 End: 03-16-2024 ambulatory MD Connor Pineda Work Phone: [facility] Work Phone: Start: 03-16-2024 Encounter for genera l adult medical examination without abnormal findings Mona Warchol [facility] Start: 03-09-2024 End: 03-09-2024 ambulatory MONA WARCHOL Not Available Start: 02-10-2024 End: 02-10-2024 ambulatory MONA WARCHOL Not Available Start: 11-16-2023 Chart abstracting Mona Morley [employer] CONDITIONING MECHANIC Work Phone: [facility] Start: 11-13-2023 Bamboo flowsheet Mona Garzachol N P Work Phone: [facility] Start: 11-13-2023 Bamboo flowsheet Mona Garzachol N P Work Phone: [facility] Start: 11-13-2023 End: 11-13-2023 Office outpatient visit 15 minutes Mona Morley [employer] AIR CONDITIONING MECHANIC Work Phone: [facility] Comment on above: Right inguinal pain (Primary Dx) Start: 11-12-2023 Chart abstracting Mona Morley W[employer]IT AIR CONDITIONING MECHANIC Work Phone: [facility] Start: 06-27-2023 End: 06-27-2023 ambulatory Juan C Johnson Other [email or web address] [facility] [employer] Other Start: 06-27-2023 Office outpatient ne w 30 minutes Juan C Johnson [facility] Start: 10-21-2022 End: 10-21-2022 Admission to same day surgery center MD Connor Pineda Work Phone: [facility] [place] Start: 10-21-2022 End: 10-21-2022 ambulatory MD Connor Pineda Work Phone: [facility] Work Phone: Start: 10-08-2022 End: 10-08-2022 ambulatory MD Connor Pineda Work Phone: [facility] Work Phone: Start: 10-08-2022 End: 10-08-2022 Patient encounter procedure MD Connor Pineda Work Phone: [facility] [employer] Work Phone: Start: 05-21-2022 End: 05-21-2022 Patient encounter procedure MD Connor Pineda Work Phone: [facility] [facility]Wmgqmdbt Testing Start: 05-09-2022 End: 05-09-2022 ambulatory MD Connor Pineda Work Phone: [facility] Work Phone: Start: 05-09-2022 End: 05-09-2022 Departed Referred MD Connor Pineda Work Phone: [facility] [place] Start: 05-07-2022 End: 05-07-2022 Patient encounter procedure MD Connor Pineda Work Phone: [facility] Puu-Cje-Ebaaehvt Testing Start: 04-25-2022 End: 04-25-2022 Departed Referred MD Connor Pineda Work Phone: [facility] Ihv-Pav-Laqldaeu Testing Start: 04-25-2022 End: 04-25-2022 Patient encounter procedure MD Connor Pineda Work Phone: [facility] Ewc-Vls-Klskdvro Testing Start: 04-20-2021 End: 04-20-[address] DARI WALKER Facility: Start: 04-21-2020 End: 04-22-2020 Patient encounter procedure [facility] Start: 04-21-2020 End: 04-21-2020 Subsequent hospital visit by [facility] Work Phone: [facility] Comment on above: Low back pain, unspe cified back pain laterality, unspecified chronicity, unspecified whether sciatica present Procedures Date Procedure Procedure Detail Performing Clinician Start: 10-08-2024 Radex spine lumbosacral minimum 4 views Marcela Mayen MD Work Phone: Start: 05-27-2024 Esophagogastroduodenoscopy MD Connor Andrews er Work Phone: Start: 03-16-2024 Plain X-ray of left shoulder MD Connor yip Work Phone: Start: 03-16-2024 X-ray of cervical spine MD Connor Pineda Work Phone: Start: 03-16-2024 Lipid 1996 panel - Serum or Plasma Marcela Mayen MD Work Phone: Start: 04-21-2023 End: 05-27-2023 History of repair of inguinal hernia Status post inguinal hernia repair Mona Morley NP Work Phone: Start: 10-21-2022 Repair of left inguinal hernia using surgical mesh MD Connor Pineda Work Phone: Start: 04-21-2020 Radex spine lumbosacral 2/3 views Sifter Operator al Transcribed Start: 04-05-2019 Hernia repair [email or web address] Comment on above: [facility] x 3. Start: 10-06-2017 Vasectomy [email or web address] Comment on above: 2017 Start: 10-06-1984 Tonsillectomy [email or web address] Comment on above: 1984 Hernia repair [email or web address] Comment on above: 4th surgery 2019 Inguinal hernia (disorder) [facility] Comment on above: right 2017 Plan of Treatment Date Care Activity Detail Author Start: 06-16-2033 Urine microalbumin profile DTaP,Tdap,Td Vaccine (3 - Td or Tdap) [facility] Start: 03-16-2029 Lipid panel Lipid Screening [facility] Start: 06-06-2025 Influenza vaccination Influenz a Vaccine (Season Ended) [facility] Start: 03-21-2025 End: 03-21-2025 Patient encounter procedure 03/21/2025 8:00 AM EDT Office Visit [facility] [address] [place] [address] Anitra Yap, [employer]IT AIR CONDITIONING MECHANIC [address] [place] [address] [facility] Start: 02-16-2025 End: 02-16-2025 Patient encounter procedure 02/16/2025 9:00 AM EDT Office Visit [facility] [address] [place] [address] Kenney De La O, AGRICULTURAL CROP FARM MANAGER-BIOLOGY MANAGER [address] [place] [address] [facility] Start: 02-08-2025 ambulatory Ambulatory Facility:[facility] [place] Start: 01-19-2025 End: 01-19-2025 Social Work 01/19/2025 1:00 PM EDT Social Work [facility] [address] [place] [address] Gaurav Cline, [facility] [address] [place] [address] [facility] Start: 01-17-2025 End: 01-17-2025 Patient encounter procedure [facility] Start: 01-10-2025 Influenza vaccination Influenza Vacc ine (#1) [facility] Comment on above: Postponed from 06/06 (Patient Refused) Start: 01-06-2025 End: 01-06-2025 Patient encounter procedure 01/06/2025 3:00 PM EDT Office Visit [facility] [address] [place] [address] Alexandra Pop PA-C [address] [place] [address] 3 MONTH FOLLOW UP Pain Management Comment on above: 3 MONTH FOLLOW UP Start: 01-04-2025 End: 01-04-2025 Patient encounter procedure 01/04/2025 2:00 PM EDT Office Visit [facility] [address] [place] [phone] Kenney De La O, AGRICULTURAL CROP FARM MANAGER-BIOLOGY MANAGER [address] [place] [address] [facility] Start: 12-22-2024 End: 12-22-2024 Social Work 12/22/2024 1:00 PM EDT Social Work [facility] [address] [place] [phone] Gaurav Cline, [facility] [address] [place] [address] [facility] Start: 12-07-2024 End: 12-07-2024 Patient encounter procedure 12/07/2024 10:40 AM EST Office Visit [facility] [address] [place] [phone] Mona Morley, W[employer]IT AIR CONDITIONING MECHANIC [address] [place] [address] [facility] Start: 12-01-2024 MR Prostate WO and W contrast IV [facility] Start: 12-01-2024 MR prostate wo/w con MR prostate wo/ w con [facility] Start: 11-30-2024 End: 11-30-2024 Patient encounter procedure 11/30/2024 3:00 PM EST Office Visit [facility] [address] [place] [address] Kenney De La O, AGRICULTURAL CROP FARM [facility] [address] [place] [address] [facility] Start: 11-29-2024 End: 11-29-2024 Telemedicine consultation with patient 11/29/2024 1:00 PM EST Telemedicine [facility] [address] [place] [address] Gaurav Cline, [facility] [address] [place] [address] [facility] Start: 11-24-2024 End: 11-24-2024 Patient encounter procedure 11/24/2024 9:30 AM EST Office Visit [facility] [address] [place] [address] Kenney De La O, AGRICULTURAL CROP FARM MANAGER-BIOLOGY MANAGER [address] [place] [address] [facility] Start: 11-10-2024 End: 11-10-2024 Social Work 11/10/2024 1:00 PM EST Social Work [facility] [address] [place] [phone] Gaurav Cline, [facility] [address] [place] [address] [facility] Start: 11-04-2024 Influenza vaccination Influenza Vacc ine (#1) [facility] Comment on above: Postponed from 06/06 (Patient Refused) Start: 10-19-2024 End: 10-19-2024 Social Work 10/19/2024 1:00 PM EST Social Work [facility] [address] [place] [address] Gaurav Cline, [facility] [address] [place] [address] [facility] Start: 10-18-2024 End: 10-18-2024 Patient encounter procedure 10/18/2024 2:40 PM EST Office Visit [facility] [address] [place] [phone] Mona Morley WINDOW UNIT AIR CONDITIONING MECHANIC [address] [place] [address] Arrived [facility] Comment on above: Arrived Start: 10-14-2024 End: 10-14-2024 Patient encounter procedure 10/14/2024 8:40 AM EST Office Visit [facility] [address] [place] [phone] Mona Morley WINDOW UNIT AIR CONDITIONING MECHANIC [address] [place] [address] [facility] Start: 10-12-2024 End: 10-12-2024 Patient encounter procedure 10/12/2024 4:00 PM EST Office Visit [facility] [address] [place] [address] Kenney De La O Evens, AGRICULTURAL CROP FARM MANAGER-BIOLOGY MANAGER [address] [place] [address] Arrived [facility] Comment on above: Arrived Start: 09-24-2024 End: 09-24-2024 Patient encounter procedure 09/24/2024 2:00 PM EST Office Visit Pain Management [address] [place] [address] Marcela Mayen MD [address] [place], [place] [phone] Rt groin pain / Back pain & lower extremity pain Pain Management Comment on above: Rt groin pain / Back pain & lower extremity pain Start: 09-22-2024 End: 09-22-2024 Social Work 09/22/2024 2:00 PM EST Social Work [facility] [address] [place] [address] Gaurav Cline, [facility] [address] [place] [address] [facility] Start: 09-09-2024 End: 09-09-2024 Patient encounter procedure 09/09/2024 10:20 AM EST Office Visit [facility] [address] [place] [address] Mona Morley NP [address] [place] [address] Arrived [facility] Comment on above: Arrived Start: 09-08-2024 End: 09-08-2024 Patient encounter procedure 09/08/2024 10:00 AM EST Office Visit [facility] [address] [place] [address] Kenney De La O, AGRICULTURAL CROP FARM MANAGER-BIOLOGY MANAGER [address] [facility] [address] [place] [address] [facility] Start: 09-06-2024 Influenza vaccination Influenza Vacc ine (#1) [facility] Comment on above: Postponed from 06/06 (Patient Refused) Start: 08-25-2024 End: 08-25-2024 Social Work 08/25/2024 2:00 PM EST Social Work [facility] [address] [place] [phone] Gaurav Cline, [facility] [address] [place] [address] Arrived [facility] Comment on above: Arrived Start: 08-04-2024 End: 08-04-2024 Social Work 08/04/2024 12:00 PM EDT Social Work [facility] [address] [place] [address] Gaurav Cline, [facility] [address] [place] [address] [facility] Start: 2024 End: 2024 Patient encounter procedure [facility] Comment on above: Arrived Start: 07-16-2024 End: 07-16-2024 Patient encounter procedure 07/16/2024 8:40 AM EDT Office Visit [facility] [address] [place] [phone] Mona Morley, RADHA [address] [place] [address] [facility] Start: 07-14-2024 End: 07-14-2024 Social Work [facility] Comment on above: Arrived Start: 07-13-2024 End: 07-13-2024 Patient encounter procedure 07/13/2024 1:20 PM EDT Office Visit [facility] [address] [place] [phone] Mona Morley, W[employer] UNIT AIR CONDITIONING MECHANIC [address] [place] [address] [facility] Start: 06-16-2024 End: 06-16-2024 Patient encounter procedure 06/16/2024 1:30 PM EDT Office Visit [facility] [address] [facility] [address] [place] [address] Kenney De La O, AGRICULTURAL CROP FARM MANAGER-BIOLOGY MANAGER [address] [facility] [address] [place] [address] Arrived [facility] Comment on above: Arrived Start: 06-06-2024 Covid-19 Vaccine ( season) Covid-19 Vaccine ( season) [facility] Start: 06-06-2024 Influenza vaccination Influenza Vacc ine (#1) [facility] Start: 05-27-2024 [facility] Start: 04-04-2024 Influenza vaccination Influenza Vacc ine (#1) [facility] Comment on above: Postponed from 06/06 (Patient Refused) Start: 12-25-2023 End: 12-25-2023 Patient encounter procedure 12/25/2023 10:00 AM EDT Office Visit [facility] [address] [place] [address] Mona Morley W[employer]OW UNIT AIR CONDITIONING MECHANIC [address] [place] [address] [facility] Start: 12-01-2023 End: 12-01-2023 Patient encounter procedure 12/01/2023 1:20 PM EST Office Visit [facility] [address] [place] [address] Mona Morley, WINDOW UNIT AIR CONDITIONING MECHANIC [address] [place] [address] [facility] Start: 11-20-2023 End: 11-20-2023 Patient encounter procedure 11/20/2023 9:20 AM EST Office Visit [facility] [address] [place] [phone] Mona Morley, W[employer]OW UNIT AIR CONDITIONING MECHANIC [address] [place] [address] [facility] Start: 11-13-2023 End: 11-13-2023 Patient encounter procedure [facility] Comment on above: Arrived Start: 10-21-2022 [facility] Start: 10-21-2022 [facility] Start: 05-21-2022 End: 05-21-2022 Patient encounter procedure Departed Clinical [facility] Giv-Pxp-Hdcidguq Testing Start: 05-09-2022 Repair of left ingui nal hernia using surgical mesh OR Inguinal Hernia Repair W/Mesh Graft (Left) [facility] Start: 05-09-2022 [facility] Start: 2001 Hepatitis B Vaccine (1 of 3 - 19+ 3-dose series) Hepatitis B Vaccine (1 of 3 - 19+ 3-dose series) [facility] Start: 2001 Pneumococcal vaccination Pneumococcal Vaccine (1 of 2 - PCV) [facility] Start: 2000 Annual PCP Team 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 michelle Disease Visit Annual PCP Team Chronic Disease Visit [facility] Start: 2000 Anxiety Screening Anxiety Screening [facility] Start: 2000 BP Controlled (<130/80) BP Controlle d (<130/80) [facility] Start: 2000 Depression Screening Depression Scre ening [facility] Start: 2000 [facility] Patient Education [facility] Work Phone: Patient referral [facility] Work Phone: Testosterone Free [Mass/volume] in Serum or Plasma [facility] Testosterone Free [Mass/volume] in Serum or Plasma [facility] Immunizations Immunization Date Immunization Notes Care Provider Fa getachew 03-10-2021 COVID-19 Justin Yang (Pfizer) MD Connor Pineda Work Phone: [facility] Comment on above: Result Comment: 2024: TPVAL 03-09-2021 Pfizer Purple Cap SARS-CoV-2 Vaccination Mona Morley W[employer]OW UNIT AIR CONDITIONING MECHANIC Work Phone: [facility] 10-17-2016 tetanus toxoid, redu aditya diphtheria toxoid, and acellular pertussis vaccine, adsorbed Mona Peyman W[employer]OW UNIT AIR CONDITIONING MECHANIC Work Phone: [facility] Payers Date Payer Category Payer Self-pay [id number] 2020 Medicaid [id number] 2020 Medicaid (Managed Care) [facility] MEDICAID [id number] 1982 Unknown [id number] 2.840.1.724928.3.579.2. 903 1982 Unknown [id number] 2.840.1.141063.3.579.2. 593 1982 Unknown [id number] 2.16840.1.277683.3.579.2. 727 1982 Unknown [id number] 2.16840.1.006186.3.579.2. 727 1982 Unknown [id number] 2.16.840.1.998370.3.579.2. 727 1982 Unknown [id number] 2.16.840.1.072960.3.579.2. 727 1982 Unknown [id number] 2.16.840.1.466638.3.579.2. 727 1982 Unknown [id number] 2.16.840.1.690839.3.579.2. 727 1982 Unknown [id number] 2.16.840.1.726832.3.579.2. 727 1982 Unknown [id number] 2.16.840.1.914955.3.579.2 727 1982 Unknown [id number] 2.16840.1.715562.3.579.2. 72 1982 Unknown [id number] 2.16840.1.136976.3.579.2 727 1982 Unknown [id number] 2.840.1.118840.3.579.2. 727 1982 Unknown [id number] 2.16840.1.480142.3.579.2. 1259 1982 Unknown [id number] 2.16840.1.878901.3.579.2. 1259 1982 Unknown [id number] 2.16.840.1.079197.3.579.2. 1259 1982 Unknown [id number] 2.16.840.1.932250.3.579.2. 1259 1982 Unknown [id number] 2.16.840.1.116466.3.579.2. 1259 1982 Unknown [id number] 2.16.840.1.832620.3.579.2. 1259 1982 Unknown [id number] 2.16.840.1.699314.3.579.2. 1259 1982 Unknown [id number] 2.16.840.1.263160.3.579.2. 1258 1982 Unknown [id number] 2.16.840.1.828613.3.579.2. 1258 1982 Unknown [id number] 2.16.840.1.927619.3.579.2. 1258 1982 Unknown [id number] 2.840.1.603754.3.579.2. 1258 1982 Unknown [id number] 2.840.1.754364.3.579.2. 1258 1982 Unknown [id number] 2.840.1.298529.3.579.2. 1258 1982 Unknown [id number] 2.840.1.313797.3.579.2. 1258 1982 Unknown [id number] 2.840.1.996601.3.579.2. 1258 1982 Unknown [id number] 2.840.1.633092.3.579.2. 1258 1982 Unknown [id number] 2.840.1.618742.3.579.2. 1258 1982 Unknown [id number] 2.840.1.416928.3.579.2. 1258 1982 Unknown [id number] 2.840.1.103454.3.579.2. 1258 1982 Unknown [id number] 2.840.1.080497.3.579.2. 1258 1982 Unknown [id number] 2.16840.1.194579.3.579.2. 1258 1982 Unknown [id number] 2.16.840.1.443998.3.579.2. 1259 1982 Unknown [id number] 2.16840.1.853651.3.579.2. 1259 1959 Unknown [id number] Unknown [id number] Unknown [id number] 2.16.840.1.756497.3.579.2. 531 Unknown [id number] 2.16.840.1.182501.3.579.2. 531 Unknown [id number] 2.16.840.1.651034.3.579.2. 531 Social History Date Type Detail Facility Tobacco smoking stat [facility] Unknown if ever smoked [facility] Start: 1980 Sex Assigned At Not on file [facility] Start: 04-25-2022 End: 07-30-2023 Tobacco smoking status DEIS Smoker (finding) [facility] Start: 1980 Sex Assigned At Male F [facility] Start: 09-22-2023 End: 01-04-2025 Sex Assigned At [facility] Start: 10-30-2023 End: 04-14-2024 Tobacco smoking status [facility] Occasional tobacco smoker [facility] History of tobacco use Cigarette Smoker [facility] Start: 10-30-2023 End: 01-04-2025 Cigarettes smoked current (pack per day) - Reported 0.3 [facility] Start: 10-30-2023 Tobacco use and exposure Former smokeless tobacco user [facility] Start: 10-30-2023 End: 01-04-2025 Alcohol intake Ex-drinker (finding) [facility] How often to you hav e a drink containing alcohol? Monthly or less [facility] How many standard drinks containing alcohol do you have on a typical day? 1 or 2 [facility] How often do you hav e 6 or more drinks on 1 occasion? Never [facility] Start: 10-30-2023 Tobacco Comment Less than 1 ci g about every 2-3 days. [facility] Start: 04-19-2023 Alcohol Comment caffeine intak e: more than 4 cups per day of coffee; soda [facility] Start: 12-18-2022 Gender identity Identifies as male gender (finding) [facility] Start: 07-13-2024 End: 12-13-2024 Tobacco smoking status Light tobacco smoker (finding) [facility] Start: 04-14-2024 End: 10-08-2024 Tobacco use and exposure Smokeless tobacco non-user [facility] Start: 06-16-2024 End: 10-08-2024 Alcoholic beverage intake Current drinker of alcohol (finding) [facility] How often to you hav e a drink containing alcohol? 2-4 times a month [facility] How many standard drinks containing alcohol do you have on a typical day? 3 or 4 [facility] Start: 12-01-2023 Tobacco Comment Less than 1 ci g about every 4-5 days. [facility] Start: 08-21-2018 End: 10-08-2024 Tobacco smoking status NHIS Smokes tobacco daily [facility] Work Phone: National Score (1-10 0), lower number is lower risk Not on file [facility] Start: 08-21-2018 End: 10-08-2024 Tobacco Comment 1-4 cigarettes daily-trying to quit [facility] Start: 08-21-2018 Alcohol Comment 1-2 glasses a month [facility] Start: 12-02-2024 Sex Male (finding) [facility] Start: 01-04-2025 Alcohol Comment caffeine intak e: more than 4 cups per day of coffee [facility] Medical Equipment Procedure Code Equipment Code Equipment Origin al Text Equipment Identifier Dates Repair, hernia, inguinal, with mesh Abdominal hernia surgical mesh, synthetic polymer, non-bioabsorbable [id number] FDA Start: 10-21-2022 Mesh Srg Prol [id number] Peter - [id number]_[facility] Start: 03-05-2019 Goals Date Patient Goal Desired Activity /State Functional Status Date Assessment Result Facility 12-15-2024 Functional Status N/A [facility] 07-13-2024 Functional Status N/A [facility] Clinical Notes 06-27-2023 to 12-15-2024 Note Date & Type Note Facility 12-15-2024 Evaluation + Plan note Extrac hattie from: Title:Pain Managment H&P new patient Author:Anat Rodríguez PA-C Date:12/15/24 Impression and Plan Patient is a 44-year-old male with a past medical history significant for ilioinguinal neuritis, lumbar degenerative disease and lumbar neuritis. 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 He is taking gabapentin 6 mg 3 times a day with some improvement not enough. He had an ilioinguinal nerve block but unfortunately it did not help him. At this time, we discussed increasing the gabapentin as he tolerates this. He is going to go to 800 mg 3 times a day. OARRS was reviewed. Prescription sent to his pharmacy. For the radicular symptoms he has undergone physical therapy that did not help. He has tried pbju-nrs-csiewwz medications and again he is on the gabapentin but it does not give him any long-term relief. He has right leg pain but right leg weakness as well. At this time, I recommended a lumbar MRI scan for possible injection options versus surgical consultation depend on the results. Patient is agreeable. He will follow-up after the MRI for reevaluation and discussion of options. IRIS score: 50%. Future Appointments Appointment Date:01/12/2025 12:45:00 PM Scheduled Provider:Anat Villagomez PA-C [facility] Appoint[facility] Type:Pain Management - Follow Up () Appointment Date:02/08/2025 03:00:00 PM Scheduled Provider:Arun HUMMEL MD Location:[facility] Appointment Type:URO Office Visit [facility] 03-12-2025 NoteConsultation Note Patient: CIARAN CANCINO JR Age: 44 years Sex: Male : 1980 Associated Diagnoses: None Author: Anat Villagomez PA-C Basic Information Accompanied by: No one. Source of history: Self. History limitation: None. Chief Complaint 12/15/2024 12:30 EDT Back Pain History of Present Illness Patient is a 44-year-old male. He presents today after a 5-month hiatus. Patient was previously seen for groin pain and he underwent a right ilioinguinal nerve block. He felt a follow-up after but hestates that it did not help him. At the time no he was started on gabapentin that gives him some improvement. He is here today for this pain but he also is noting right radiating leg pain that started 6 months ago without any incident or trauma. Patient underwent physical therapy. It did not help. He saw his PCP. He states that his PCP eventually felt like this was outside of their area of expertise and referred him here. Again he states that therapy helped originally but then stopped. Did not give him any long-term relief. He feels that his right leg is getting weaker. He is here today to discuss options. He rates his pain a 3???6/10. Worse with standing, worse with being upright, worse with being active. He also feels that his right leg is just progressively getting weaker. For the groin pain he has a history of 7 hernia surgeries and groin surgeries. He states that he has nerve damage. He wonders if there are other options for this as well. Review of Systems Constitutional: No fever, No chills. Eye: No recent visual problem. Ear/Nose/Mouth/Throat: No decreased hearing. Respiratory: No shortness of breath, No cough. Cardiovascular: No chest pain. Gastrointestinal: No nausea, No vomiting. Genitourinary: No dysuria, No hematuria. Hematology/Lymphatics: No bruising tendency, No bleeding tendency. Musculoskeletal: Back pain, Claudication. Integumentary: No rash, No pruritus. Neurologic: Alert and oriented X4, Numbness, Tingling. Psychiatric: No anxiety, No depression. Health Status Allergies: Allergic Reactions (Selected) Severe Alkylamine antihistamines- Anaphylaxis. Severity Not Documented HYDROcodone Bitartrate- Hives. Current medications: No qualifying data available Problem list: All Problems Depression / SNOMED CT 28218732 / Confirmed Migraine / SNOMED CT 54065127 / Confirmed Chronic GERD / SNOMED CT 142609022 / Confirmed Smoker / SNOMED CT 049712325 / Confirmed Added secondary to documentation in Social History. Hypertension / SNOMED CT 7596458573 / Confirmed Prostatitis / SNOMED CT 93870520 / Confirmed Elevated PSA / SNOMED CT 2551510745 / Confirmed BPH (benign prostatic hyperplasia) / SNOMED CT 989816471 / Confirmed Histories Past Medical History: No active or resolved past medical history items have been selected or recorded. Family History: Diabetes Mother Hypertension Mother Cancer Father Mother Procedure history: Hernia repair (SNOMED CT 52196179) on 04/05/2019 at 38 Years. Comments: 01/05/2020 13:55 CHARO Porter RN, Lore Bennett [facility] x 3. Vasectomy (SNOMED CT 34033635) in 2018 at 38 Years. Comments: 01/03/2020 12:23 EDT - Day Genevieve CORNELIUS 2018 Tonsillectomy (SNOMED CT 106782120) in 1985 at 5 Years. Comments: 01/03/2020 12:22 EDT - Day Genevieve CORNELIUS 1983 Inguinal hernia (SNOMED CT 7962517827). Comments: 01/03/2020 12:22 EDT - Day Genevieve CORNELIUS right 2017 Hernia repair (SNOMED CT 59859854). Comments: 01/03/2020 12:24 EDT - Day Genevieve CORNELIUS 4th surgery 2019 Social History Social & Psychosocial Habits Alcohol 12/15/2024 Risk Assessment: Denies Alcohol Use Substance Abuse 12/15/2024 Type: Marijuana 12/15/2024 Use: Current Type: Marijuana Frequency: 1-2 times per week Tobacco 12/15/2024 Risk Assessment: High Risk 12/15/2024 Tobacco Use: 5-9 cigarettes (between 1 Smoking Cessation Yes . Physical Examination Vital Signs (last 24 hrs) Last Charted Heart Rate Peripheral 90 bpm (DEC 15 12:30) SBP H 156 mmHg (DEC 15:30) DBP H 101 mmHg (DEC 15 12:30) Weight 97.5 kg (DEC 15:30) BMI 31.12 (DEC 15:) General: Alert and oriented, No acute distress. HENT: Normocephalic, Normal hearing. Respiratory: Respirations are non-labored. Cardiovascular: No edema. Musculoskeletal Normal range of motion. Normal strength. 5/5 lower extremity strength other than right hip flexion 4/5 Positive right straight leg raise. Neurologic: Alert, Oriented. Cognition and Speech: Oriented, Speech clear and coherent. Psychiatric: Cooperative, Appropriate mood & affect. Integumentary: Warm, Dry, [place]. Review / Management Results review: No qualifying data available . Lumbar x-ray report reviewed. Impression and Plan Patient is a 44-year-old male with a past medical history significant for ilioinguin (more content not included)...[facility] HospitalComment on above:Result Comment: Electronically Signed By: Anat Villagomez PA-C\.chico\Date and Time Signed: 12/15/24 12:56 [id number] NotePatient Education Infectious Disease Prostatitis Prostatitis is swelling or inflammation of the prostate gland, also called the prostate. This glandis about 1.5 inches wide and 1 inch high, and it is involved in making semen. The prostate is located below a man's bladder, in front of the rectum. There are four types of prostatitis: ??? Chronic prostatitis (CP), also called chronic pelvic pain syndrome (CPPS). This is the most common type of prostatitis. It is associated with increased muscle tone in the area between the hip bones (pelvic area), around the prostate. This type is also known as a pelvic floor disorder. ??? Chronic bacterial prostatitis. This type usually results from an acute bacterial infection in the prostate gland that keeps coming back or has not been treated properly. The symptoms are less severe than those caused by acute bacterial prostatitis, which lasts a shorter time. ??? Asymptomatic inflammatory prostatitis. This type does not have symptoms and does not need treatment. This is diagnosed when tests are done for other disorders of the urinary tract or reproductivetract. ??? Acute bacterial prostatitis. This type starts quickly and results from an acute bacterial infection in the prostate gland. It is usually associated with a bladder infection, high fever, and chills. This is the least common type of prostatitis. What are the causes? Bacterial prostatitis is caused by an infection from bacteria. Chronic nonbacterial prostatitis may be caused by: ??? Factors related to the nervous system. This system includes thebrain, spinal cord, and nerves. ??? An autoimmune response. This happens when the body's disease-fighting system attacks healthy tissue in the body by mistake. ??? Psychological factors. These have to do with how the mind works. The causes of the other types of prostatitis are usually not known. What are the signs or symptoms? Symptoms of this condition depend on the type of prostatitis you have. Acute bacterial prostatitis Symptoms may include: ??? Pain or burning during urination. ??? Frequent and sudden urges to urinate. ??? Trouble starting to urinate. ??? Fever. ??? Chills. ??? Pain in your muscles or joints, lower back, or lower abdomen. Other types of prostatitis Symptoms may include: ??? Sudden urges to urinate, or urinating often. ??? Trouble starting to urinate. ??? Weak urine stream. ??? Dribbling after urination. ??? Discharge coming from the penis. ??? Pain in the testicles, the penis, or the tip of the penis. ??? Pain in the area in front of the rectum and below the scrotum (perineum). ??? Pain when ejaculating. How is this diagnosed? This condition may be diagnosed based on: ??? A physical and medical exam. ??? A digital rectal exam. For this, the health care provider may use a finger to feel the prostate. ??? A urine test to check for bacteria. ??? A semen sample or blood tests. ??? Ultrasound. ??? Urodynamic tests to check how your body handles urine. ??? Cystoscopy to look inside your bladder or inside the part of your body that drains urine from the bladder (urethra). How is this treated? Treatment for this condition depends on the type of prostatitis. Treatment may involve: ??? Medicines to relieve pain or inflammation, or to help relax your muscles. ??? Physical therapy. ??? Heat therapy. ??? Biofeedback. These techniques help you control certain body functions. ??? Relaxation exercises. ??? Antibiotic medicine, if your condition is caused by bacteria. ??? Sitz baths. These warm water baths help to relax your pelvic floor muscles, which helps to relieve pressure on the prostate. Follow these instructions at home: Medicines ??? Take lcef-pep-tbcbmlx and prescription medicines only as told by your health care provider. ??? If you were prescribed an antibiotic medicine, take it as told by your health care provider. Donot stop using the antibiotic even if you start to feel better. Managing pain and swelling ??? Take sitz baths as directed by your health care provider. For a sitz bath, sit in warm water that is deep enough to cover your hips and buttocks. ??? If directed, apply heat to the affected area as often as told by your health care provider. Usethe heat source that your health care provider recommends, such as a moist heat pack or a heating pad. ? Place a towel between your skin and the heat source. ? Leave the heat on for 20?30 minutes. ? Remove the heat if your skin turns bright red. This is especially important if you are unable to feel pain, heat, or cold. You may have a greater risk of getting burned. General instructions ??? Do exercises as told by your health care provider, if you were prescribed physical therapy, biofeedback, or relaxation exercises. ??? Keep all follow-up visits as told by your health care provider. This is important. (more content not included)...[facility]02-24-2025 Telephone encounter Note* Telephone Encounter - Mona Morley NP - 11/29/2024 2:17 PM EST Sent [facility] [id number] Miscellaneous Notes* Telephone Encounter - Mona Morley NP - 11/29/2024 2:17 PM EST Sent * Telephone Encounter - Ebony Lake MA - 11/29/2024 1:50 PM EST Spoke with pt. He states he does not have a pain management doctor and is waiting to get in with one. He is asking if a referral to [facility] can be sent for him. * Telephone Encounter - Mona Morley NP - 11/29/2024 1:42 PM EST Please have him call his pain management doctor to see if they can do injections for him. Thanks * Telephone Encounter - Ebony Lake MA - 11/29/2024 11:57 AM EST Pt left msg requesting something else for his sciatic nerve pain. documented in this encounterChildren's Mercy [id number] Telephone encounter Note* Telephone Encounter - Ebony Lake MA - 11/29/2024 1:50 PM EST Spoke with pt. He states he does not have a pain management doctor and is waiting to get in with one. He is asking if a referral to [facility] can be sent for him. [facility]OMHed[facility] Medical [id number] Telephone encounter Note* Telephone Encounter - Mona Morley NP - 11/29/2024 1:42 PM EST Please have him call his pain management doctor to see if they can do injections for him. Thanks [facility] [id number] Telephone encounter Note* Telephone Encounter - Ebony Lake MA - 11/29/2024 11:57 AM EST Pt left msg requesting something else for his sciatic nerve pain. [facility] [id number] History of Present illness Narrative* Mona Morley NP - 11/16/2024 1:20 PM EST SUBJECTIVE Ciaran Cancino is a 44 y.o. male who presents for a chronic illness management visit. Patient also has complaints of low back pain with radiation into the right posterior leg since last. Currently rates his pain a 7-8/10. Admits to associated numbness and tingling in the right foot. States that he has tried OTC tylenol with no relief of pain. Today at your visit we discussed tobacco cessation. Tobacco abuse increases your risk of heart disease, stroke , cancer and lung disease. We have discussed your current barriers to quitting smoking and the triggers for you to have a cigarette. In addition, we discussed there are medications to helpyou quit. We did discuss tobacco cessation for approximately 4 minutes. CURRENT MEDICATIONS Current Outpatient Medications: hydrOXYzine pamoate (Vistaril) 50 MG capsule, Take 1 capsule (50 mg) by mouth 2 (two) times a day as needed for anxiety, Disp: 60 capsule, Rfl: 0 QUEtiapine (SEROquel) 300 MG tablet, Take 1 tablet (300 mg) by mouth at bedtime, Disp: 30 tablet, Rfl: 1 sertraline (Zoloft) 100 MG tablet, Take 2 tablets (200 mg) by mouth Daily, Disp: 60 tablet, Rfl: 2 fluticasone (Flonase) 50 MCG/ACT nasal spray, Administer 2 sprays into each nostril Daily Shake gently. Before first use, prime pump. After use, clean tip and replace cap., Disp: 16 g, Rfl: 11 gabapentin (Neurontin) 600 MG tablet, Take 1 tablet (600 mg) by mouth in the morning and 1 tablet (600 mg) in the evening and 1 tablet (600 mg) before bedtime., Disp: 90 tablet, Rfl: 2 losartan (Cozaar) 50 MG tablet, Take 1 tablet (50 mg) by mouth Daily, Disp: 90 tablet, Rfl: 1 losartan-hydroCHLOROthiazide (Hyzaar) 100-25 MG tablet, Take 1 tablet by mouth Daily, Disp: 90 tablet, Rfl: 1 methocarbamol (Robaxin) 750 MG tablet, Take 1 tablet (750 mg) by mouth 4 (four) times a day as needed for muscle spasms, Disp: 120 tablet, Rfl: 0 omeprazole (PriLOSEC) [address] capsule, Take 1 capsule (40 mg) by mouth in the morning and 1 capsule (40 mg) in the evening. Take before meals., Disp: 180 capsule, Rfl: 3 predniSONE (Deltasone) 20 MG tablet, Take two tablets (40 mg) daily for five days, then take one tablet (20 mg) daily for five days. Take with food., Disp: 15 tablet, Rfl: 0 rosuvastatin (Crestor) 20 MG tablet, Take 1 tablet (20 mg) by mouth at bedtime, Disp: 90 tablet, Rfl: 3 tamsulosin (Flomax) 0.4 MG 24 hr capsule, Take 1 capsule (0.4 mg) by mouth Daily, Disp: 90 capsule,Rfl: 3 traMADol (Ultram) 50 MG tablet, Take 1 tablet (50 mg) by mouth every 6 (six) hours if needed for severe pain for up to 5 days, Disp: 20 tablet, Rfl: 0 RECENT VITAL SIGNS 06/16/2024 1:07 PM 07/16/2024 8:38 AM 2024 10:57 AM 09/09/2024 10:08 AM 10/12/2024 3:45 PM 10/18/2024 2:46 PM 11/16/2024 1:24 PM Vitals BMI 30.56 kg/m2 30.59 kg/m2 31.85 kg/m2 31.38 kg/m2 31.28 kg/m2 30.71 kg/m2 30.07 kg/m2 BSA (m2) 2.18 m2 2.19 m2 2.23 m2 2.21 m2 2.21 m2 2.19 m2 2.17 m2 Systolic 148 132 116 138 142 124 138 Diastolic 88 82 82 82 90 80 88 Heart Rate 90 83 84 61 95 83 88 SpO2 98 % 97 % 97 % 97 % Temp 97.1 F 97 F 97.9 F 97.9 F Height (in) 5' 10 5' 10 5' 10 5' 10 Weight (lb) 213 213.2 222 218.7 218 214 209.6 Visit Report Report Report Report Report Report OBJECTIVE Physical Exam Vitals and nursing note reviewed. Constitutional: Appearance: Normal appearance. He is normal weight. HENT: Head: Normocephalic and atraumatic. Right Ear: Tympanic membrane, ear canal and external ear normal. Left Ear: Tympanic membrane, ear canal and external ear normal. Nose: Nose normal. Mouth/Throat: Mouth: Mucous membranes are moist. Eyes: Pupils: Pupils are equal, round, and reactive to light. Cardiovascular: Rate and Rhythm: Normal rate and regular rhythm. Pulses: Normal pulses. Heart sounds: Normal heart sounds. Pulmonary: Effort: Pulmonary effort is normal. Breath sounds: Normal breath sounds. Abdominal: General: Bowel sounds are normal. Palpations: Abdomen is soft. Musculoskeletal: General: Normal range of motion. Cervical back: Normal range of motion. Skin: General: Skin is warm and dry. Capillary Refill: Capillary refill takes less than 2 seconds. Neurological: General: No focal deficit present. Mental Status: He is alert and oriented to person, place, and time. Psychiatric: Mood and Affect: Mood normal. ASSESSMENT/PLAN Diagnoses and all orders for this visit: Degeneration of intervertebral disc of lumbar region with discogenic back pain and lower extremity pain - predniSONE (Deltasone) 20 MG tablet; Take two tablets (40 mg) daily for five days, then take one tablet (20 mg) daily for five days. Take with food. - traMADol (Ultram) 50 MG tablet; Take 1 tablet (50 mg) by mouth every 6 (six) hours if needed for severe pain for up to 5 days Lumbar degenerative disc disease - gabapentin (Neurontin) 600 MG tablet; Take 1 tablet (600 mg) by mouth in the morning and 1 tablet(600 mg) in the evening and 1 tablet (600 mg) before bedtime. Seasonal allergic rhinitis due to pollen - fluticasone (Flonase) 50 MCG/ACT nasal spray; Administer 2 sprays into each nostril Daily Shake gently. Before first use, prime pump. After use, clean tip and replace cap. Anxiety Hypertensive heart disease without heart failure (CMS/HCC) - losartan (Cozaar) 50 MG tablet; Take 1 tablet (50 mg) by mouth Daily Essential (primary) hypertension (CMS/HCC) - losartan-hydroCHLOROthiazide (Hyzaar) 100-25 MG tablet; Take 1 tablet by mouth Daily Strain of left trapezius muscle, sequela - methocarbamol (Robaxin) 750 MG tablet; Take 1 tablet (750 mg) by mouth 4 (four) times a day as needed for muscle spasms Mixed hyperlipidemia (CMS/HCC) - rosuvastatin (Crestor) 20 MG tablet; Take 1 tablet (20 mg) by mouth at bedtime Benign prostatic hyperplasia with incomplete bladder emptying - tamsulosin (Flomax) 0.4 MG 24 hr capsule; Take 1 capsule (0.4 mg) by mouth Daily Cigarette nicotine dependence without complication Gastroesophageal reflux disease without esophagitis - omeprazole (PriLOSEC) [address] capsule; Take 1 capsule (40 mg) by mouth in the morning and 1 capsule (40 mg) in the evening. Take before meals. FOLLOW-UP Follow up in about 6 weeks (around 12/28/2024) for Next scheduled follow-up: [facility]. documented in this encounterChildren's Mercy [id number] Instructions* Patient Instructions* Mona Morley NP - 11/16/2024 1:20 PM EST PATIENT EDUCATION: Low back pain Encouraged to follow up with meds, heat/ice, and exercises as provided. Encouraged to avoid strenuous activities that may worsen symptoms but continue with being physically active. Avoid laying/sitting for long periods of time as this will worsen muscle aches/spasms and back pain. Encouraged to usestretching. Core strengthening and proper lifting mechanics ar important. Complete imaging if ordered. Notify office or go to ER if saddle paresthesia presents or if patient develop difficulties voiding, passing stool, or new onset incontinence. [place] reviewed as necessary for use of controlled substances. Anxiety 1) Cognitive Behavioral Therapy (CBT) for anxiety/panic disorder involves a combination of education, self-monitoring, relaxation training, challenging negative styles of thinking, situational exposure training, and systematic exposure to uncomfortable physical sensations. CBT can be used alone without pharmacotherapy, or may be used as an adjunct to any form of pharmacotherapy 2) Panic is an understandable reaction to perceived danger (the fight or flight response). Fear arises from the misinterpretation of normal body sensations. It is important to link symptoms and interpret anxiety with arrows in a vicious [place] . It is important to appreciate that the first goal of treatment is not to remove all anxiety, only to manage it successfully. Attempts to cope by avoidance or safety seeking are understandable, but inadvertently lead to maintaining the problem. 3) Several mental health apps have been developed for panic and anxiety-related conditions. Internet-based self-help programs have been developed to improve access to evidence-based treatment principles for panic symptoms for patients unable to access treatment with a clinician. 4) Use medication as directed. Counseling recommended. Please report to the emergency room for any suicidal/homicidal ideation. Patient strongly encouraged to avoid alcohol and drug substances while on medications. This can cause adverse reactions and ineffectiveness of medications. [place] reviewed as necessary for use of controlled substances. Allergic rhinitis Patient is currently suffering from allergic rhinitis (seasonal allergies). There are common fbyf-onh-oksrzsb and prescription medications used in the treatment of allergic rhinitis. This was discussed during today's visit. Sinus irrigation encouraged to help rinse the allergens from the sinus cavities. Encouraged to keep the air moving in bedrooms. Identify possible triggers of allergies and remove them from daily activities. Medication management discussed and plan of care initiated. Nasal saline spray may be used for comfort. Follow- up if symptoms do not improve. HTN Possible complications of uncontrolled hypertension include stroke, congestive heart failure, heartattack, loss of vision, and kidney failure. Please complete labs as directed and call our office inone week if you have not received your lab results. Patient is encouraged to reduce salt in diet and to exercise at least 150 minutes per week. Avoid tobacco use and alcohol consumption. Please take all medications as prescribed. HLD Reviewed most recent lipid panel or ordered new labs if needed. It is important to maintain LDL at specified goal. The risks associated with hyperlipidemia including stroke and heart attack. Take medications as directed. Dietary modifications include decreasing red meat consumption, decreasing alcohol consumption, avoiding fried fatty foods and cakes, cookies, and sweets. You are encouraged to increase fiber in your diet and eat a diet rich in omega-3. You are encouraged to exercise at least 150 minutes weekly. Barriers to the plan of care have been addressed. Obtain labs as directed and callour office if you have not received the lab results within one week. Follow up as directed. Patienthas been given a copy of the plan of care. Smoking cessation Today at your visit we discussed tobacco cessation. Tobacco abuse increases your risk of heart disease, stroke , cancer and lung disease. We have discussed your current barriers to quitting smoking and the triggers for you to have a cigarette. In addition, we discussed there are medications to helpyou quit. We did discuss tobacco cessation for approximately 4 minutes. GERD Discussed life-style modifications to reduce acid reflux. Avoid eating 2-3 hours prior to bed time,avoid spicy, greasy, high fat foods. Elevate head of bed when possible or elevate head on multiple pillows. Continue with current drug therapy, if symptoms begin to break through, call office for GI referral. Patient encouraged to also use ProBiotics for any bowel changes. documented in this encounterChildren's Mercy [id number] History of Present illness Narrative* Mona Morley NP - 10/18/2024 2:40 PM EST SUBJECTIVE Ciaran Cancino is a 44 y.o. male who presents for a chronic illness management visit. Patient states he does not wish to follow with his current pain management doctor, and he is asking to be placedlocally. Today at your visit we discussed tobacco cessation. Tobacco abuse increases your risk of heart disease, stroke , cancer and lung disease. We have discussed your current barriers to quitting smoking and the triggers for you to have a cigarette. In addition, we discussed there are medications to helpyou quit. We did discuss tobacco cessation for approximately 4 minutes. CURRENT MEDICATIONS Current Outpatient Medications: hydrOXYzine pamoate (Vistaril) 50 MG capsule, Take 1 capsule (50 mg) by mouth 2 (two) times a day as needed for anxiety, Disp: 60 capsule, Rfl: 0 methocarbamol (Robaxin) 750 MG tablet, Take 1 tablet (750 mg) by mouth 4 (four) times a day as needed for muscle spasms, Disp: 120 tablet, Rfl: 0 omeprazole (PriLOSEC) [address] capsule, Take 40 mg by mouth in the morning and 40 mg in the evening. Take before meals., Disp: , Rfl: QUEtiapine (SEROquel) 300 MG tablet, Take 1 tablet (300 mg) by mouth at bedtime, Disp: 30 tablet, Rfl: 1 sertraline (Zoloft) 100 MG tablet, Take 2 tablets (200 mg) by mouth Daily, Disp: 60 tablet, Rfl: 2 tamsulosin (Flomax) 0.4 MG 24 hr capsule, Take 1 capsule (0.4 mg) by mouth Daily, Disp: 90 capsule,Rfl: 3 fluticasone (Flonase) 50 MCG/ACT nasal spray, Administer 2 sprays into each nostril Daily Shake gently. Before first use, prime pump. After use, clean tip and replace cap., Disp: 16 g, Rfl: 11 gabapentin (Neurontin) 600 MG tablet, Take 1 tablet (600 mg) by mouth in the morning and 1 tablet (600 mg) in the evening and 1 tablet (600 mg) before bedtime., Disp: 90 tablet, Rfl: 2 losartan (Cozaar) 50 MG tablet, Take 1 tablet (50 mg) by mouth Daily, Disp: 90 tablet, Rfl: 1 losartan-hydroCHLOROthiazide (Hyzaar) 100-25 MG tablet, Take 1 tablet by mouth Daily, Disp: 90 tablet, Rfl: 1 rosuvastatin (Crestor) 20 MG tablet, Take 1 tablet (20 mg) by mouth at bedtime, Disp: 90 tablet, Rfl: 3 RECENT VITAL SIGNS 05/17/2024 8:39 AM 06/16/2024 1:07 PM 07/16/2024 8:38 AM 2024 10:57 AM 09/09/2024 10:08 AM 10/12/2024 3:45 PM 10/18/2024 2:46 PM Vitals BMI 30.19 kg/m2 30.56 kg/m2 30.59 kg/m2 31.85 kg/m2 31.38 kg/m2 31.28 kg/m2 30.71 kg/m2 BSA (m2) 2.17 m2 2.18 m2 2.19 m2 2.23 m2 2.21 m2 2.21 m2 2.19 m2 Systolic 134 148 132 116 138 142 124 Diastolic 80 88 82 82 82 90 80 Heart Rate 95 90 83 84 61 95 83 SpO2 98 % 98 % 97 % 97 % Temp 97.3 F 97.1 F 97 F 97.9 F Height (in) 5' 10 5' 10 5' 10 5' 10 Weight (lb) 210.4 213 213.2 222 218.7 218 214 Visit Report Report Report Report Report Report Report OBJECTIVE Physical Exam Vitals and nursing note reviewed. Constitutional: Appearance: Normal appearance. He is normal weight. HENT: Head: Normocephalic and atraumatic. Right Ear: Tympanic membrane, ear canal and external ear normal. Left Ear: Tympanic membrane, ear canal and external ear normal. Nose: Nose normal. Mouth/Throat: Mouth: Mucous membranes are moist. Eyes: Pupils: Pupils are equal, round, and reactive to light. Cardiovascular: Rate and Rhythm: Normal rate and regular rhythm. Pulses: Normal pulses. Heart sounds: Normal heart sounds. Pulmonary: Effort: Pulmonary effort is normal. Breath sounds: Normal breath sounds. Abdominal: General: Bowel sounds are normal. Palpations: Abdomen is soft. Musculoskeletal: General: Normal range of motion. Cervical back: Normal range of motion. Skin: General: Skin is warm and dry. Capillary Refill: Capillary refill takes less than 2 seconds. Neurological: General: No focal deficit present. Mental Status: He is alert and oriented to person, place, and time. Psychiatric: Mood and Affect: Mood normal. ASSESSMENT/PLAN Diagnoses and all orders for this visit: Degeneration of intervertebral disc of lumbar region with discogenic back pain and lower extremity pain - Ambulatory referral to Pain Medicine; Future Lumbar degenerative disc disease - gabapentin (Neurontin) 600 MG tablet; Take 1 tablet (600 mg) by mouth in the morning and 1 tablet(600 mg) in the evening and 1 tablet (600 mg) before bedtime. Mixed hyperlipidemia (CMS/HCC) - rosuvastatin (Crestor) 20 MG tablet; Take 1 tablet (20 mg) by mouth at bedtime Seasonal allergic rhinitis due to pollen - fluticasone (Flonase) 50 MCG/ACT nasal spray; Administer 2 sprays into each nostril Daily Shake gently. Before first use, prime pump. After use, clean tip and replace cap. Hypertensive heart disease without heart failure (CMS/HCC) - losartan (Cozaar) 50 MG tablet; Take 1 tablet (50 mg) by mouth Daily Essential (primary) hypertension (CMS/HCC) - losartan-hydroCHLOROthiazide (Hyzaar) 100-25 MG tablet; Take 1 tablet by mouth Daily Cigarette nicotine dependence without complication FOLLOW-UP Follow up in about 3 months (around 01/16/2025). documented in this encounterChildren's Mercy [id number] NoteUrology Office/Clinic Note HPI Staff 43 yr old male here as referral due to elevated PSA PSA on 03/16/24 was 5.090 and 13.1% Dx: elevated PSA, Microcytic anemia, hypogonadism pt states at times his urine has a very foul odor. Dysuria: no Incomplete bladder emptying: mostly Hematuria: no Frequency: varies,mostly q2-3 hrs Urgency: yes Nocturia: 3-4x Stream: varies Leaking: no Post void dripping: no Wearing pads/ Depends: Urge incontinence: no Stress incontinence: at times Incontinence without Sensory Awareness: no Abdominal pain: yes Flank pain:no Sexual complaints: no History of Present Illness I have reviewed and verified the staff HPI to be accurate for this encounter. Portions of this record may have been created with voice recognition artificial intelligence software, specifically Brand[employer]er, Five-Thirty and or Ebuzzing and Teads. Substitutions may have occurred due to the inherent limitations of voice recognition and artificial intelligence software. Review of Systems PHQ Score Initial Depression Screen Score: 0 SCORE Physical Exam Vitals & Measurements HR: 78(Peripheral) BP: 106/68 HT: 67 in HT: 169.5 cm WT: 90.9 kg WT: 199.98 lb BMI: 31.64 General: Well developed, well nourished, in no acute distress. Genitourinary: Flank Pain: none. Bladder: nonpalpable. Prostate: normal prostate, no hard nodule observed. Assessment/Plan Former PRW pt, last OV 06/01/21 1. Elevated PSA (R97.20: Elevated prostate specific antigen [PSA]) PSA 03/16/2024 - 5.09 and 13.1% Patient is unsure why his PSA was checked at the time. Denies any complaints of suspected infection, prostatitis. Denies family history of prostate CA ROSENDO today benign, not suspicious for infection. Today I reviewed the patients past history including voiding symptoms, PSA history. I discussed theproduction of PSA by the prostate gland as well as common causes of elevated serum PSA including infection, inflammation, BPH and prostate cancer. He understood that his PSA level may also be falselyelevated due to any manipulation/instrumentation around the time of a PSA draw. I discussed the absolute value of PSA as well as PSA velocity and age specific PSA and the implications with the patient. I gave the patient management options moving forward and explained the risks/benefits of each one: -Continue monitoring PSA with repeat in 6-12 months -Obtain additional biomarkers such as select MDX -Obtain prostate MRI to evaluate for suspicious lesions. He understands MRIs may miss malignancy in12-16% of patients. The patient was urged not to ride his bike, masturbate, have sex or undergo a ROSENDO for at least 4 days prior to any repeat PSA testing. Patient opts to recheck PSA now. If PSA level remains elevated, he would like to move forward with MRI. If moving forward with MRI, will bring patient back to office to review to discuss next steps, possible biopsy. -[place] [facility] [place] -If PSA remains elevated, will order MRI. Will need follow-up 1 month to discuss results, next steps. Ordered: PSA Free & Total Urnls Dip Stick Auto w/o Microscopy POC [id number] 2. BPH (benign prostatic hyperplasia) (N40.0: Benign prostatic hyperplasia without lower urinary tract symptoms) IPSS 18, moderate symptoms of BPH. Patient is mostly dissatisfied with his urinary symptoms at thistime. He is currently taking tamsulosin 0.4 mg daily, which she tolerates well. He denies any side effects. We discussed male urologic anatomy including the prostate and how this is likely contributing to his urinary symptoms. We discussed how potential prostate obstruction affects long-term bladder healthand compliance. We discussed alpha- emigdio medications to help with urinary symptoms, possible sideeffects. I did advise patient that these medications do not protect the bladder while alleviating some urinary symptoms. In order to assess degree of bladder outlet obstruction and bladder health, discussed further evaluation with cystoscopy in the future. PSA workup takes priority at this time. We did discuss option to increase tamsulosin dosing to twice daily in order to achieve max relax effect on prostate. We discussed increased risk for side effects. Patient would like to trial this. Will send Rx to pharmacy. If experiencing any bothersome side effects, stop medication and notify office. -Increase tamsulosin to twice daily Ordered: tamsulosin, 0.4 mg = 1 cap(s), Oral, BID, # 30 cap(s), Refills(s) 11, Pharmacy: [facility]/pharmacy #[id number],169.5, cm, 07/13/24 15:11:00 EDT, Height/Length Dosing, 90.9, kg, 07/13/24 15:11:00 EDT, Weight Dosing Follow-up With When Contact Information PARISH Levine APRN, [place] [facility], BRITANY, URL Additional Instructions: Pending PSA Patient Education Prostate Cancer Screening Benign Prostatic Hyperplasia Problem List/Past Medical History Ongoing Chronic GERD Depression Hypertension Migraine Prostatitis Smoker Hist (more content not included)...[facility] SouthwoodsComment on above: Result Comment: Electronically Signed By: PARISH Levine APRN, [place] [facility]\.br\Date and Time Signed: 10/14/24 11:28 [id number] History of Present illness Narrative* Kenney Horner DinaMelissa, AGRICULTURAL [employer] F[employer] MANAGER-BIOLOGY MANAGER - 10/12/2024 4:00 PM EST Images from the original note were not included. Ciaran Cancino is a 44 y.o. male presents for Medication Management. HPI: Patient is here for medication follow up. Patient has improved since last appt. Mood is reported as depressed and rates 3-4(10worst) Anxiety is much improved. Others have noticed. Panic attacks since last visit. 8- 10. Talking to more people is a little easier. Sleeping 6-8 hours. Medication compliant. No reported side effects. Using 2-3 joints a day. Medical problems since last visit. He had gotten severe stomach virus -got dehydrated. Chronic backpain. Psychosocial stressors include difficulty with having panic attacks. SUBJECTIVE: PAST MEDICAL HISTORY: Past Medical History: Diagnosis Date Anxiety Chicken pox Chronic back pain Chronic pain disorder Depression (CMS/HCC) Severiano-Danlos syndrome (CMS/HCC) Family history of cancer History of psychiatric hospitalization [address] X2 weeks History of ulcer disease Migraine headache (CMS/HCC) Sleep difficulties Tonsillitis ALLERGIES: Allergies Allergen Reactions Antihistamines, Loratadine-Type Shortness of breath Other Reaction(s): Swelling of Lip/Tongue/Throat Antihistamines, Chlorpheniramine-Type Other Reaction(s): Swelling of Lip/Tongue/Throat Diphenhydramine Unknown Hydrocodone Hives, Unknown and Itching SURGICAL HISTORY: Past Surgical History: Procedure Laterality Date HERNIA REPAIR 03/04/2019 4th hernia repair OTHER SURGICAL HISTORY 2018 Sprun disc and chord removal/nerves NV LAPAROSCOPY SURG RPR INITIAL INGUINAL HERNIA Right 2017 NV LAPAROSCOPY SURG RPR INITIAL INGUINAL HERNIA Left 10/21/2022 TONSILLECTOMY 1985 VASECTOMY 2018 FAMILY HISTORY: Family History Problem Relation Name Age of Onset Multiple myeloma Mother Diabetes Mother Hypertension Mother Skin cancer Father Bipolar disorder Sister Bone cancer Maternal Grandmother Liver cancer Paternal Grandmother SOCIAL HISTORY: Social History Tobacco Use Smoking status: Some Days Current packs/day: 0.25 Average packs/day: 0.3 packs/day for 15.0 years (3.8 ttl pk-yrs) Types: Cigarettes Smokeless tobacco: Never Tobacco comments: Less than 1 cig about every 4-5 days. Vaping Use Vaping status: Never Used Substance Use Topics Alcohol use: Not Currently Comment: caffeine intake: more than 4 cups per day of coffee; soda Drug use: Yes Types: Marijuana Comment: smoke/gummies Depression: Not at risk (09/09/2024) PHQ-2 PHQ-2 Score: 0 REVIEW OF SYMPTOMS - MENTAL STATUS EXAM Appearance Appearance: Casual dress, normal grooming and hygiene Attitude Attitude: Cooperative, conversant, engaged, and with good eye contact. Behavior Cooperative, conversant, engaged, and with good eye contact. Speech Normal, clear, regular rate, rhythm and volume Affect constricted Mood mild depression/ panic attacks Thought Process Organized and Clear Thought Content No Suicidal Ideation and No Homicidal ideation Perception No perceptual abnormalities noted Orientation Appropriate to age, Person, Place, and Time Memory/Concentration Short term intact and fpc intact Insight/Judgement Good OBJECTIVE: Visit Vitals Smoking Status Some Days No results found for: TSH Lab Results Component Value Date GLU 86 03/16/2024 CALCIUM 9.5 03/16/2024 NA 140 03/16/2024 K 4.3 03/16/2024 CO2 32.3 (H) 03/16/2024 CL 104 03/16/2024 BUN 17 03/16/2024 CREATININE 1.17 03/16/2024 Lab Results Component Value Date WBC 8.1 07/19/2024 HGB 15.3 07/19/2024 HCT 45.1 07/19/2024 MCV 83.8 07/19/2024 PLT 272 07/19/2024 No results found for: CHOL No results found for: HDL No results found for: LDLCALC No results found for: TRIG ASSESSMENT AND PLAN: Assessment/Plan There are no diagnoses linked to this encounter. This is a 44-year-old male who was referred by counselor Gaurav Cline For medication management oflong history of depression and anxiety. Patient reported that his symptoms have been harder to control over the last several years and his medications have been managed by his primary care physician.Patient is currently taking Effexor and Prozac at the same time along with Seroquel at night. Patient stated, I need help with my anxiety and My behavior. Plan to increase seroquel and taper off effexor. Discussed diagnosis and plan for stabilization. Bipolar Disorder most recent depressed Anxiety Cannabis use Psych Medication List Increase Zoloft 100mg daily -risks vs benefits -target depresson and anxiety. Gabapentin 600mg tid Seroquel 300mg po at bedtime Is Pleased with his progress and would like to continue current medications and would like to try increasing the Zoloft. Continues with counseling. Patient was seen Face to Face, Reviewed chart documents and documentation, Visit time : 30min 6-7 weeks * Chayo Giordano - 10/12/2024 4:00 PM EST Patient states that anxiety attacks are more frequent. documented in this encounterChildren's Mercy [id number] History of Present illness Narrative* Jessa Lemons RT(R) - 10/08/2024 9:10 AM EST Radiology Service Progress Note PATIENT NAME: Ciaran Cancino JR DATE OF SERVICE: October 08, 2024 TIME: 9:09 AM PATIENT IDENTITY VERIFICATION COMPLETED USING TWO (2) IDENTIFIERS: Name and Date of confirmedby patient verbally and Name and Date of confirmed by identification band. FALL SCREENING: Has the patient had 2 falls in the last year or 1 fall with injury or currently using an Ambulatory Assistive Device (Walker, Cane, Wheelchair, Crutches, etc.)? No PATIENT GENDER DATA: Male PATIENT RELEVANT IMPLANT DATA REVIEWED: Not Applicable PATIENT PRESENTS WITH AN IMPLANTABLE OR ATTACHED QUALITY PROCESS AUDITOR: No RADIOLOGY DEPARTMENT: General X-ray: Exam(s) Completed: Spine X-Ray(s): Lumbar AP / LAT / L5-S1 / FLEX-EXT PERIPHERAL IV DATA: Not applicable SIGNED BY: RT Krystyna(R) October 08, 2024 9:09 AM documented in this encounterOhio [facility] NoteHNO ID: [id number] Author: JESSA LEMONS RT(R) Service: Radiology Author Type: Technologist Type: Progress Notes Filed: 10/08/2024 09:10 Note Text: Radiology Service Progress Note PATIENT NAME: Ciaran Cancino JR DATE OF SERVICE: October 08, 2024 TIME: 9:09 AM PATIENT IDENTITY VERIFICATION COMPLETED USING TWO (2) IDENTIFIERS: Name and Date of confirmed by patient verbally and Name and Date of confirmed by identification band. FALL SCREENING: Has the patient had 2 falls in the last year or 1 fall with injury or currently using an Ambulatory Assistive Device (Walker, Cane, Wheelchair, Crutches, etc.)? No PATIENT GENDER DATA: Male PATIENT RELEVANT IMPLANT DATA REVIEWED: Not Applicable PATIENT PRESENTS WITH AN IMPLANTABLE OR ATTACHED QUALITY PROCESS AUDITOR: No RADIOLOGY DEPARTMENT: General X-ray: Exam(s) Completed: Spine X-Ray(s): Lumbar AP / LAT / L5-S1 / FLEX-EXT PERIPHERAL IV DATA: Not applicable SIGNED BY: RT Krystyna(R) October 08, 2024 9:09 [facility] [id number] Instructions* Patient Instructions* Marcela Mayen MD - 10/08/2024 8:51 AM EST We discussed your chronic lower back pain: - Your pain management involves four maldonado areas: medication, physical therapy, injections, and psychotherapy. - You are currently taking Gabapentin, which is a good medication for nerve pain. If you haven't tried Lyrica, a similar medication, consider discussing this option with your prescribing doctor. - You are also taking Zoloft. There is another antidepressant called Cymbalta (duloxetine) that is effective for chronic musculoskeletal and nerve pain. Please talk to your doctor about the possibility of switching from Zoloft to Cymbalta. - You can try [id number] NSAIDs like ibuprofen or Aleve to see if they help with your pain. Additionally, you can use Voltaren gel, an anti- inflammatory medication that you can apply to your back up to four times a day. - Physical therapy is crucial for managing your back pain. Even though you've done physical therapybefore, it's important to continue. I will put in an order for physical therapy at a different place to get a fresh perspective. - We will get an x-ray of your back to see what's going on with the bones. I will put in the order for the x-ray. - Please obtain and send us the records from your previous pain management treatments in [place], including any imaging and injections you had. - Consider discussing your chronic pain with your psychiatric therapist, Kenney, as it can have a significant impact on your mental well-being. - We have resources for psychotherapy, including a pain psychologist and a more intensive pain program if needed in the future. I will see you back in 2-3 months to review your progress and discuss further steps. documented in this encounterOhio [facility]01-03-2025 History of Present illness Narrative* Marcela Mayen MD - 10/08/2024 8:00 AM EST Images from the original note were not included. [facility] Consultation Date: October 08, 2024 - PM Referring physician: No referring provider defined for this encounter. Ciaran Cancino JR is seen in consultation requested by Mona Morley NP- NOMSofie for an opinion regarding chronic lower back pain. My final recommendations will be communicated back to the requesting physician by way of shared medical record or via US mail. Chief Complaint: Patient presents with: Consult SUBJECTIVE History of Present Illness Ciaran Cancino JR is a 44 year old and presents with lower back pain. Past medical history is significant for: PAST MEDICAL HISTORY Diagnosis Date Cannabis use, unspecified, uncomplicated 11/17/2017 Chronic groin pain, right 01/02/2018 Added automatically from request for surgery [id number] Chronic midline low back pain without sciatica 01/06/2017 Depression 02/13/2018 Essential hypertension 03/04/2019 HTN (hypertension) Personal history of urinary calculi 11/17/2017 Right inguinal hernia 01/02/2018 Added automatically from request for surgery [id number] Intensity of pain: 4 on a scale of 0-10. Duration of pain: Years ago, with no precipitating event.. The pain is located Back-Lower and radiates below the knee on the right. Pain Description: Continuous Sharp, Shooting Timing: changes in severity but always present Aggravating Factors: standing, walking, sitting, and flexion Alleviating Factors: Reposition, Relaxation, Exercise, Medication, Heat Interference with: physical activity, walking, sleeping, and social activities. In the past 12 months, He completed 10 physical therapy sessions. Physical therapy is helpful. The patient has seen other pain providers. Possible Red Flag Ciaran Cancino JR has no red flag symptoms. Past pain treatment has included Exercise, PT, and injections Past pain medications have included Gabapentin Opioids: Oxycodone (percocet)- past prescription He had relief from the following interventions: PT He had relief from the following medications:Tylenol Gabapentin Almaz Bennett MA October 08, 2024 8:16 AM Review of Systems HENT: Negative. Eyes: Negative. Respiratory: Negative. Cardiovascular: Negative. Gastrointestinal: Negative. Genitourinary: Negative. Musculoskeletal: Positive for back pain, falls and joint pain. Negative for myalgias and neck pain. Skin: Negative. Endo/Heme/Allergies: Negative. Psychiatric/Behavioral: Positive for depression. Negative for hallucinations, memory loss, substance abuse and suicidal ideas. The patient is not nervous/anxious and does not have insomnia. OBJECTIVE Imaging Objective October 08, [address] ABD/PELV 06/05/23 RESULT: Abdomen / Pelvis: Liver: Diffuse hepatic steatosis with areas of focal fatty sparing, especially adjacent to the gallbladder, unchanged from prior. No suspicious lesions within the unenhanced liver. Biliary: Gallbladder unremarkable. Pancreas: Unremarkable. Spleen: Few calcified granulomas. No splenomegaly. Adrenals: No mass. Kidneys: Punctate 2 mm calculus left lower pole. No hydronephrosis. No suspicious renal lesions in the unenhanced kidneys. GI Tract: No bowel dilation. Feces throughout the colon, associated with constipation, but better assessed clinically. Diverticulosis without evidence for acute diverticulitis. Normal appendix. Lymph Nodes: No lymphadenopathy. Mesentery/peritoneum/retroperitoneum: No ascites or mass. Vasculature: Mild vascular calcifications. No aortic aneurysm. Pelvis: Bladder decompressed and not well evaluated. No significant free fluid. Expected postoperative changes from bilateral inguinal hernia repair without evidence for recurrent hernia. Small fat-containing periumbilical hernia. Bones/Soft Tissues: No acute osseous findings. Degenerative changes especially involving L4-L5. Dextroscoliosis of the imaged spine. OSH LUMBAR SPINE XR 2020 COMPARISON:None Lumbar lordosis is adequate. No acute lumbar spine fracture is identified. No lumbar listhesis identified. No hypermobility identified with flexion and extension views. Small anterior endplate spurs. Sacralization of L5 segment noted. L4-5 mild disc space narrowing. Lower lumbar facet degeneration. Mild scoliosis identified. No paraspinal abnormality seen. SI joints are maintained. Reports listed here were copy and pasted directly into the note after review of the complete reportand/or the images. Those areas highlighted in red are significant and specific to today's encounter. Physical Examination Physical Exam Vitals: BP 120/80 Pulse 76 Ht 5' 10 (1.78m) Wt 209 lb 7 oz (95.0kg) BMI 30.05 kg/(m^2). General: Well appearing, well dressed Mental Status: Alert and Oriented x3. Speech is clear. Mood & Affect: Even Skin: Skin color, texture, turgor normal, no suspicious rashes or lesions HEENT: Pupils equal, round, reactive to light. Not pinpoint. Pulmonary: Breathing easily without tachypnea or bradypnea. Cardiac: No LE edema Abdomen: not distended Ambulation: Gait is normal. Neuro/Musculoskeletal: flexion (normal 45): full with pain extension (normal 25): full with pain Facet Palpation: Right tender; Left tender Facet Loading: Right tender; Left tender Straight Leg Raise: Right Negative; Left Negative Palpation: diffuse tenderness noted throughout the lumbar spine JOSR/Sukhjinder's Test (Flexion Abduction External Rotation): Right Negative; Left Negative Cheikh Finger Test: Right Negative; Left Negative Palpation over PSIS: Right tender; Left tender +Motor Strength Iliopsoas: 5/5 (full) Quadriceps: 5/5 (full) Hamstrings: 5/5 (full) Ankle Dorsiflexion: 5/5 (full) Ankle Plantarflexion: 5/5 (full) +Sensory Exam Right LE: Intact Left LE: Intact Patient denies any red flag symptoms such as bowel/bladder dysfunction or sudden weakness. Assessment & Plan Assessment & Plan October 08, 2024 The primary encounter diagnosis was Chronic bilateral low back pain without sciatica. Diagnoses of Lumbar radiculitis, Bipolar 1 disorder (HCC), and Chronic pain syndrome were also pertinent to this visit. Ciaran Cancino is a 44-year-old male with a history of HTN and bipolar disorder, right groin pain s/p multiple hernia repairs, presenting with chronic lower back pain. Ciaran reports chronic lower back pain that has been present as long as he can remember. The pain is described as aching and radiates down the legs, more so on the right than the left, reaching asfar as the mid-calf. The pain is exacerbated by prolonged sitting, standing, or walking, and intensifies with increased movement once it starts. He denies any specific activities that reliably trigger the pain. The pain is more pronounced in the back than in the legs. He denies numbness, paresthesia, weakness, or bowel/bladder incontinence. Ciaran has a history of multiple groin surgeries and is currently taking gabapentin 600 mg TID, which effectively manages his groin pain. He has also been on Zoloft for the past 6 months, following a switch from Prozac, which he had been taking since age 18. He is also on Seroquel. He reports being allergic to hydrocodone and is currently taking Tylenol for pain management. He has not been usingNSAIDs due to concerns related to his antihypertensive medication. Ciaran has a history of steroid injections for his back pain, which were administered years ago Jaya. He is unsure if these were epidural or medial branch blocks. He has also undergone physical therapy and x-rays in the past, but reports that these interventions did not provide significant relief. He was diagnosed with degenerative disc disease approximately 8 years ago. # Chronic bilateral low back pain without sciatica (M54.50) # Lumbar radiculitis (M54.16) # Chronic pain syndrome (G89.4) Chronic low back pain with radicular symptoms extending to the mid-calf, more pronounced on the right side - unable to be reproduced on physical exam. No numbness, tingling, or weakness reported. Pain exacerbated by prolonged sitting, standing, or walking - however patient states none of these reliably make the pain occur. Previous treatments include steroid injections, physical therapy, and x-rays, with limited relief. Currently on gabapentin 600 mg TID and Tylenol. Allergic to hydrocodone. Facet loading positive bilaterally, more on the right - however unlikely truely facetogenic pain; SLR negative bilaterally. - Ordered lumbar spine x-ray to assess for any structural abnormalities. - Initiated NSAID therapy with ibuprofen or Aleve as needed; consider short-term prescription of meloxicam if inadequate response. - Recommended Voltaren gel for topical application up to four times daily if patient wishes to not use oral medication - Referred to physical therapy; emphasized the importance of strengthening and stretching exercisesto improve back stability and reduce pain. - Discussed potential switch from Zoloft to Cymbalta (duloxetine) with patient's psychiatrist to address both depression and chronic pain. - Encouraged patient to discuss potential transition from Gabapentin to Lyrica with prescriber - Advised patient to obtain and provide previous medical records from pain management clinic in [place] for further evaluation. - Follow-up appointment scheduled in 2-3 months with DUSTIN Forrester to assess progress and adjust treatment plan as necessary. # Bipolar 1 disorder (HCC) (F31.9) Currently managed with Zoloft; previously on Prozac. Recent medication changes in the past six months. Under the care of a psychiatrist in [place]. - Discussed potential benefits of switching from Zoloft to Cymbalta (duloxetine) with psychiatrist to address both mood stabilization and chronic pain. - Encouraged patient to discuss the impact of chronic pain on mental well-being with psychiatrist. - Provided information on pain psychology resources available locally. The above plan and management options were discussed with patient. The patient is in agreement withthe above and verbalized understanding. Marcela Mayen MD Electronic signature This office note has been dictated and may contain minor typographic errors that escaped review. I have confirmed and edited as necessary, the PFSH and ROS obtained by others. Relevant History from the Electronic Medical Record Questionnaires: Patient Entered Questionnaires PROMIS Score Percentiles Percentiles provide an indication of how the patient's score ranks in relation to the general population. Higher percentile rankings indicate better function/quality of life. 50th percentile is the average of the general population and indicates half of respondents had a worse score. Depression Screening: PHQ-9 Self-Harm (Item 9) response options: 0 Not at all 1 Several days 2 More than half the days 3 Nearly every day PHQ-9 Levels: 0-4 Minimal depression 5-9 Mild depression 10-14 Moderate depression 15-19 Moderately severe depression 20-27 Severe depression No data to display (0-4) minimal depression, (5-9) mild depression, (10-14) moderate depression, (15-19) moderately severe depression, (20-27) severe depression No data to display No data to display ALLERGIES Allergen Reactions Antihistimine Hives, Anaphylaxis Hydrocodone Hives, Itching Current Medications: sertraline (ZOLOFT) 100 mg tablet Take 150 mg by mouth. gabapentin (NEURONTIN) 100 mg capsule Take 1 capsule by mouth once daily for 90 days. losartan (COZAAR) 25 mg tablet Take 25 mg by mouth once daily. quetiapine fumarate (SEROQUEL ORAL) Take 1 tablet by mouth daily at bedtime. docusate sodium (COLACE) 100 mg capsule Take 1 capsule by mouth twice daily. FLUoxetine HCl (PROZAC) 40 mg capsule Take 40 mg by mouth once daily. PAST MEDICAL HISTORY Diagnosis Date Cannabis use, unspecified, uncomplicated 11/17/2017 Chronic groin pain, right 01/02/2018 Added automatically from request for surgery [id number] Chronic midline low back pain without sciatica 01/06/2017 Depression 02/13/2018 Essential hypertension 03/04/2019 HTN (hypertension) Personal history of urinary calculi 11/17/2017 Right inguinal hernia 01/02/2018 Added automatically from request for surgery [id number] PAST SURGICAL HISTORY Procedure Laterality Date PAST SURGICAL HISTORY OF Right right inguinal hernia repair PAST SURGICAL HISTORY OF Removal of hernia mesh and nerve excision x3 TONSILLECTOMY HX FAMILY HISTORY Problem Relation Age of Onset Diabetes Mother Hypertension Father Diabetes Father Social History: Alcohol Use: Yes (1-2 glasses a month) Tobacco Use: Types: Cigarettes (1-4 cigarettes daily-trying to quit) Drug Use: Yes (4X/month) Employer And Job Title: None on file Years Of Education Completed: Not specified Marital Status: Single Medical Decision Making The [facility] EMR was reviewed during the visit including: Problem List, Past Medical History, Past Surgical History, Medications, Allergies, Encounters with other providers and associated notes, Imaging, Labs, and Care Everywhere for OSH records Notes and tests identified as copied and pasted above were directly placed into the frame of this note and are pertinent to my medical decision making. OARRS: PDMP website checked and validated and is consistent with medication report. *Information in italics was copied from the shared EMR Medical Decision Making: Problems: Moderate: 1+ chronic illnesses with change Data: Unique source(s) for external note(s) reviewed: 1 Unique test result(s) reviewed: 1 Unique test(s) ordered: 1 Risk: Moderate: Drug management Medical Decision Making Level: 4 - Moderate [facility] NoteHNO ID: [id number] Author: MARCELA MAYEN MD Service: ? Author Type: Physician Type: Progress Notes Filed: 10/08/2024 09:03 Note Text: [facility] Consultation Date: October 08, 2024 - PM Referring physician: No referring provider defined for this encounter. Ciaran Cancino JR is seen in consultation requested by Mona Morley [employer]IT [employer] CONDITIONING MECH[employer]IC- [facility] for an opinion regarding chronic lower back pain. My final recommendations will be communicated back to the requesting physician by way of shared medical record or via US mail. Chief Complaint: Patient presents with: Consult SUBJECTIVE History of Present Illness Ciaran Cancino JR is a 44 year old and presents with lower back pain. Past medical history is significant for: PAST MEDICAL HISTORY Diagnosis Date Cannabis use, unspecified, uncomplicated 11/17/2017 Chronic groin pain, right 01/02/2018 Added automatically from request for surgery [id number] Chronic midline low back pain without sciatica 01/06/2017 Depression 02/13/2018 Essential hypertension 03/04/2019 HTN (hypertension) Personal history of urinary calculi 11/17/2017 Right inguinal hernia 01/02/2018 Added automatically from request for surgery [id number] Intensity of pain: 4 on a scale of 0-10. Duration of pain: Years ago, with no precipitating event.. The pain is located Back-Lower and radiates below the knee on the right. Pain Description: Continuous Sharp, Shooting Timing: changes in severity but always present Aggravating Factors: standing, walking, sitting, and flexion Alleviating Factors: Reposition, Relaxation, Exercise, Medication, Heat Interference with: physical activity, walking, sleeping, and social activities. In the past 12 months, He completed 10 physical therapy sessions. Physical therapy is helpful. The patient has seen other pain providers. Possible Red Flag Ciaran Cancino JR has no red flag symptoms. Past pain treatment has included Exercise, PT, and injections Past pain medications have included Gabapentin Opioids: Oxycodone (percocet)- past prescription He had relief from the following interventions: PT He had relief from the following medications:Tylenol Gabapentin Almaz Bennett MA October 08, 2024 8:16 AM Review of Systems HENT: Negative. Eyes: Negative. Respiratory: Negative. Cardiovascular: Negative. Gastrointestinal: Negative. Genitourinary: Negative. Musculoskeletal: Positive for back pain, falls and joint pain. Negative for myalgias and neck pain. Skin: Negative. Endo/Heme/Allergies: Negative. Psychiatric/Behavioral: Positive for depression. Negative for hallucinations, memory loss, substance abuse and suicidal ideas. The patient is not nervous/anxious and does not have insomnia. OBJECTIVE Imaging Objective October 08, [address] ABD/PELV 06/05/23 RESULT: Abdomen / Pelvis: Liver: Diffuse hepatic steatosis with areas of focal fatty sparing, especially adjacent to the gallbladder, unchanged from prior. No suspicious lesions within the unenhanced liver. Biliary: Gallbladder unremarkable. Pancreas: Unremarkable. Spleen: Few calcified granulomas. No splenomegaly. Adrenals: No mass. Kidneys: Punctate 2 mm calculus left lower pole. No hydronephrosis. No suspicious renal lesions in the unenhanced kidneys. GI Tract: No bowel dilation. Feces throughout the colon, associated with constipation, but better assessed clinically. Diverticulosis without evidence for acute diverticulitis. Normal appendix. Lymph Nodes: No lymphadenopathy. Mesentery/peritoneum/retroperitoneum: No ascites or mass. Vasculature: Mild vascular calcifications. No aortic aneurysm. Pelvis: Bladder decompressed and not well evaluated. No significant free fluid. Expected postoperative changes from bilateral inguinal hernia repair without evidence for recurrent hernia. Small fat-containing periumbilical hernia. Bones/Soft Tissues: No acute osseous findings. Degenerative changes especially involving L4-L5. Dextroscoliosis of the imaged spine. OS LUMBAR SPINE XR 2020 COMPARISON:None Lumbar lordosis is adequate. No acute lumbar spine fracture is identified. No lumbar listhesis identified. No hypermobility identified with flexion and extension views. Small anterior endplate spurs. Sacralization of L5 segment noted. L4-5 mild disc space narrowing. Lower lumbar facet degeneration. Mild scoliosis identified. No paraspinal abnormality seen. SI joints are maintained. Reports listed here were copy and pasted directly into the note after review of the complete report and/or the images. Those areas highlighted in red are significant and specific to today's encounter. Physical Examination Physical Exam Vitals: BP 120/80 Pulse 76 Ht 5' 10 (1.78m) Wt 209 lb 7 oz (95.0kg) BMI 30.05 kg/(m2). General: Well appearing, well dressed Mental Status: Alert and Oriented x3. Speech is clear. Mood AND Affect: Elizabeth (more content not included)...[facility] 09-22-2024 Telephone encounter Note* Telephone Encounter - Dayan Escoto RN - 09/22/2024 12:48 PM EST Called and left message for patient with family member to return call regarding appointment with Dr. Mayen. Please give patient this message when he returns call: This message is in regards to your upcoming appointment with Dr. Mayen on 09/24/24. Please bring any outside medical records, imaging and lab work with you to your appointment. Also Dr. Mayen is interventional pain management (injections, physical therapy and non-narcotic medications), he does not prescribe or take over any narcotic opioid pain medications (Percocet, Oxycodone, Hydrocodone, Tramadol). If you have any questions about your appointment, please call [phone] and ask for pain management. Thank You, The [facility]12-18-[facility] Miscellaneous Notes* Telephone Encounter - Dayan Escoto RN - 09/22/2024 12:48 PM EST Called and left message for patient with family member to return call regarding appointment with Dr. Mayen. Please give patient this message when he returns call: This message is in regards to your upcoming appointment with Dr. Mayen on 09/24/24. Please bring any outside medical records, imaging and lab work with you to your appointment. Also Dr. Mayen is interventional pain management (injections, physical therapy and non-narcotic medications), he does not prescribe or take over any narcotic opioid pain medications (Percocet, Oxycodone, Hydrocodone, Tramadol). If you have any questions about your appointment, please call [phone] and ask for pain management. Thank You, The Pain Management Office documented [facility] History of Present illness Narrative* Mona Morley, [employer] CONDITIONING MECH[employer]IC - 09/09/2024 10:20 AM EST Images from the original note were not included. SUBJECTIVE Ciaran Cancino is a 44 y.o. male who presents today for a ER follow-up. Patient does not feel his gabapentin is working as well for his pain. He would like to discuss increasing the dosing. Patient is requesting a referral to a different pain management provider. He is willing to travel out of town for this. Recent ER follow-up Patient was seen in the ED on 09/06/24 with complaints of nausea, vomiting, and diarrhea. Patient was diagnosed with a viral infection and was discharged on 09/06/24 and was given new prescriptions for Zofran. Today at your visit we discussed tobacco cessation. Tobacco abuse increases your risk of heart disease, stroke , cancer and lung disease. We have discussed your current barriers to quitting smoking and the triggers for you to have a cigarette. In addition, we discussed there are medications to helpyou quit. We did discuss tobacco cessation for approximately 4 minutes. CURRENT MEDICATIONS Current Outpatient Medications: fluticasone (Flonase) 50 MCG/ACT nasal spray, Administer 2 sprays into each nostril Daily Shake gently. Before first use, prime pump. After use, clean tip and replace cap., Disp: 16 g, Rfl: 11 losartan (Cozaar) 50 MG tablet, Take 1 tablet (50 mg) by mouth Daily, Disp: 90 tablet, Rfl: 1 losartan-hydroCHLOROthiazide (Hyzaar) 100-25 MG tablet, Take 1 tablet by mouth Daily, Disp: 90 tablet, Rfl: 1 omeprazole (PriLOSEC) [address] capsule, Take 40 mg by mouth in the morning and 40 mg in the evening. Take before meals., Disp: , Rfl: QUEtiapine (SEROquel) 200 MG tablet, Take 1 tablet (200 mg) by mouth at bedtime, Disp: 30 tablet, Rfl: 1 rosuvastatin (Crestor) 20 MG tablet, Take 1 tablet (20 mg) by mouth at bedtime, Disp: 90 tablet, Rfl: 3 sertraline (Zoloft) 100 MG tablet, Take 1.5 tablets (150 mg) by mouth Daily, Disp: 45 tablet, Rfl: 2 gabapentin (Neurontin) 600 MG tablet, Take 1 tablet (600 mg) by mouth in the morning and 1 tablet (600 mg) in the evening and 1 tablet (600 mg) before bedtime., Disp: 90 tablet, Rfl: 2 methocarbamol (Robaxin) 750 MG tablet, Take 1 tablet (750 mg) by mouth 4 (four) times a day as needed for muscle spasms, Disp: 120 tablet, Rfl: 0 tamsulosin (Flomax) 0.4 MG 24 hr capsule, Take 1 capsule (0.4 mg) by mouth Daily, Disp: 90 capsule,Rfl: 3 RECENT VITAL SIGNS 04/26/2024 1:27 PM 05/10/2024 10:51 AM 05/17/2024 8:39 AM 06/16/2024 1:07 PM 07/16/2024 8:38 AM 2024 10:57 AM 09/09/2024 10:08 AM Vitals BMI 31.57 kg/m2 30.19 kg/m2 30.56 kg/m2 30.59 kg/m2 31.85 kg/m2 31.38 kg/m2 BSA (m2) 2.22 m2 2.17 m2 2.18 m2 2.19 m2 2.23 m2 2.21 m2 Systolic 134 158 134 148 132 116 138 Diastolic 82 102 80 88 82 82 82 Heart Rate 80 95 90 83 84 61 SpO2 98 % 98 % 97 % Temp 97.3 F 97.1 F 97 F Height (in) 5' 10 5' 10 5' 10 Weight (lb) 220 210.4 213 213.2 222 218.7 Visit Report Report Report Report Report Report OBJECTIVE Physical Exam Vitals and nursing note reviewed. Constitutional: Appearance: Normal appearance. He is normal weight. HENT: Head: Normocephalic and atraumatic. Right Ear: Tympanic membrane, ear canal and external ear normal. Left Ear: Tympanic membrane, ear canal and external ear normal. Nose: Nose normal. Mouth/Throat: Mouth: Mucous membranes are moist. Eyes: Pupils: Pupils are equal, round, and reactive to light. Cardiovascular: Rate and Rhythm: Normal rate and regular rhythm. Pulses: Normal pulses. Heart sounds: Normal heart sounds. Pulmonary: Effort: Pulmonary effort is normal. Breath sounds: Normal breath sounds. Abdominal: General: Bowel sounds are normal. Palpations: Abdomen is soft. Musculoskeletal: General: Normal range of motion. Cervical back: Normal range of motion. Skin: General: Skin is warm and dry. Capillary Refill: Capillary refill takes less than 2 seconds. Neurological: General: No focal deficit present. Mental Status: He is alert and oriented to person, place, and time. Psychiatric: Mood and Affect: Mood normal. ASSESSMENT/PLAN Diagnoses and all orders for this visit: Need for follow-up care after discharge Strain of left trapezius muscle, sequela - methocarbamol (Robaxin) 750 MG tablet; Take 1 tablet (750 mg) by mouth 4 (four) times a day as needed for muscle spasms Benign prostatic hyperplasia with incomplete bladder emptying - tamsulosin (Flomax) 0.4 MG 24 hr capsule; Take 1 capsule (0.4 mg) by mouth Daily Lumbar degenerative disc disease - gabapentin (Neurontin) 600 MG tablet; Take 1 tablet (600 mg) by mouth in the morning and 1 tablet(600 mg) in the evening and 1 tablet (600 mg) before bedtime. Cigarette nicotine dependence without complication Right groin pain - Ambulatory referral to Pain Medicine; Future Degeneration of intervertebral disc of lumbar region with discogenic back pain and lower extremity pain - Ambulatory referral to Pain Medicine; Future FOLLOW-UP Follow up in about 3 months (around 12/08/2024) for Next scheduled follow-up: [facility] . documented in this encounterChildren[facility] [id number] Instructions* Patient Instructions* Mona Morley NP - 09/09/2024 10:20 AM EST PATIENT EDUCATION: Low back pain Encouraged to follow up with meds, heat/ice, and exercises as provided. Encouraged to avoid strenuous activities that may worsen symptoms but continue with being physically active. Avoid laying/sitting for long periods of time as this will worsen muscle aches/spasms and back pain. Encouraged to usestretching. Core strengthening and proper lifting mechanics ar important. Complete imaging if ordered. Notify office or go to ER if saddle paresthesia presents or if patient develop difficulties voiding, passing stool, or new onset incontinence. OARRS reviewed as necessary for use of controlled substances. ER follow-up The patient was seen today in follow-up of recent hospital ER/UC visit. All available records/labs/diagnostics were reviewed and discussed with the patient. ER/UC discharge meds were reviewed. Any changes to plan are noted above. Smoking cessation Today at your visit we discussed tobacco cessation. Tobacco abuse increases your risk of heart disease, stroke , cancer and lung disease. We have discussed your current barriers to quitting smoking and the triggers for you to have a cigarette. In addition, we discussed there are medications to helpyou quit. We did discuss tobacco cessation for approximately 4 minutes. documented in this encounterChildren's Mercy [id number] History of Present illness Narrative* Kenney De La O, OTONIEL-BIOLOGY MANAGER - 2024 11:00 AM EDT Images from the original note were not included. Ciaran Cancino is a 43 y.o. male presents for Medication Management. HPI: Patient is here for medication follow up. Patient has improved since last appt. Mood is reported as depressed and rates 2-3(10worst) Anxiety is when everyone comes over. Sleeping 6 hours straight. This is much improved. Medication compliant. No reported side effects. Marijuana use 3-4 days a week. Medical problems since last visit elevated PSA/ will be having treatment. Psychosocial stressors include concern about PSA, difficulty being in large crowds and small spaces. Continues with counseling. SUBJECTIVE: PAST MEDICAL HISTORY: Past Medical History: Diagnosis Date Anxiety Chicken pox Chronic back pain Chronic pain disorder Depression (CMS/HCC) Severiano-Danlos syndrome (CMS/HCC) Family history of cancer History of psychiatric hospitalization [address] X2 weeks History of ulcer disease Migraine headache (CMS/HCC) Sleep difficulties Tonsillitis ALLERGIES: Allergies Allergen Reactions Antihistamines, Loratadine-Type Shortness of breath Antihistamines, Chlorpheniramine-Type Other Reaction(s): Swelling of Lip/Tongue/Throat Diphenhydramine Unknown Hydrocodone Hives, Unknown and Itching SURGICAL HISTORY: Past Surgical History: Procedure Laterality Date HERNIA REPAIR 03/04/2019 4th hernia repair OTHER SURGICAL HISTORY 2018 Sprun disc and chord removal/nerves NV LAPAROSCOPY SURG RPR INITIAL INGUINAL HERNIA Right 2017 [place] LAPAROSCOPY SURG RPR INITIAL INGUINAL HERNIA Left 10/21/2022 TONSILLECTOMY 1985 VASECTOMY 2018 FAMILY HISTORY: Family History Problem Relation Name Age of Onset Multiple myeloma Mother Diabetes Mother Hypertension Mother Skin cancer Father Bipolar disorder Sister Bone cancer Maternal Grandmother Liver cancer Paternal Grandmother SOCIAL HISTORY: Social History Tobacco Use Smoking status: Some Days Current packs/day: 0.25 Average packs/day: 0.3 packs/day for 15.0 years (3.8 ttl pk-yrs) Types: Cigarettes Smokeless tobacco: Never Tobacco comments: Less than 1 cig about every 4-5 days. Vaping Use Vaping status: Never Used Substance Use Topics Alcohol use: Not Currently Comment: caffeine intake: more than 4 cups per day of coffee; soda Drug use: Yes Types: Marijuana Comment: smoke/gummies Depression: Not at risk (07/16/2024) PHQ-2 PHQ-2 Score: 0 REVIEW OF SYMPTOMS - MENTAL STATUS EXAM Appearance Appearance: Casual dress, normal grooming and hygiene Attitude Attitude: Cooperative, conversant, engaged, and with good eye contact. Behavior Cooperative, conversant, engaged, and with good eye contact. Speech Normal, clear, regular rate, rhythm and volume Affect Blunted Mood Anxious Thought Process Organized and Clear Thought Content No Suicidal Ideation and No Homicidal ideation Perception No perceptual abnormalities noted Orientation Appropriate to age, Person, Place, and Time Memory/Concentration Short term intact and clinic office coordinator intact Insight/Judgement Good OBJECTIVE: Visit Vitals Smoking Status Some Days No results found for: TSH Lab Results Component Value Date GLU 86 03/16/2024 CALCIUM 9.5 03/16/2024 NA 140 03/16/2024 K 4.3 03/16/2024 CO2 32.3 (H) 03/16/2024 CL 104 03/16/2024 BUN 17 03/16/2024 CREATININE 1.17 03/16/2024 Lab Results Component Value Date WBC 8.1 07/19/2024 HGB 15.3 07/19/2024 HCT 45.1 07/19/2024 MCV 83.8 07/19/2024 PLT 272 07/19/2024 No results found for: CHOL No results found for: HDL No results found for: LDLCALC No results found for: TRIG ASSESSMENT AND PLAN: Assessment/Plan Assess/Plan SmartLinks: There are no diagnoses linked to this encounter. There are no diagnoses linked to this encounter. This is a 44-year-old male who was referred by counselor Gaurav Cline For medication management oflong history of depression and anxiety. Patient reported that his symptoms have been harder to control over the last several years and his medications have been managed by his primary care physician.Patient is currently taking Effexor and Prozac at the same time along with Seroquel at night. Patient stated, I need help with my anxiety and My behavior. Plan to increase seroquel and taper off effexor. Discussed diagnosis and plan for stabilization. Bipolar Disorder most recent depressed Anxiety Cannabis use Psych Medication List Increase Zoloft 150 daily -risks vs benefits -target depresson and anxiety. To call office if problems tolerating or worsening of symptoms. Seroquel 200mg po at hs Is Pleased with his progress and would like to continue current medications and would like to try increasing the Zoloft. Patient was seen Face to Face, Reviewed chart documents and documentation: 20 min F/U6 weeks documented in this encounterChildren's Mercy [id number] History of Present illness Narrative* Mona Morley, RADHA - 07/16/2024 8:40 AM EDT Images from the original note were not included. SUBJECTIVE Ciaran Cancino is a 43 y.o. male who presents for a chronic illness management visit. Today at your visit we discussed tobacco cessation. Tobacco abuse increases your risk of heart disease, stroke , cancer and lung disease. We have discussed your current barriers to quitting smoking and the triggers for you to have a cigarette. In addition, we discussed there are medications to helpyou quit. We did discuss tobacco cessation for approximately 4 minutes. CURRENT MEDICATIONS Current Outpatient Medications: fluticasone (Flonase) 50 MCG/ACT nasal spray, Administer 2 sprays into each nostril Daily Shake gently. Before first use, prime pump. After use, clean tip and replace cap., Disp: 16 g, Rfl: 11 omeprazole (PriLOSEC) [address] capsule, Take 40 mg by mouth in the morning and 40 mg in the evening. Take before meals., Disp: , Rfl: QUEtiapine (SEROquel) 200 MG tablet, Take 1 tablet (200 mg) by mouth at bedtime, Disp: 30 tablet, Rfl: 0 sertraline (Zoloft) 100 MG tablet, Take 1 tablet (100 mg) by mouth Daily, Disp: 30 tablet, Rfl: 2 gabapentin (Neurontin) 600 MG tablet, Take 1 tablet (600 mg) by mouth in the morning and 1 tablet (600 mg) before bedtime., Disp: 60 tablet, Rfl: 2 losartan (Cozaar) 50 MG tablet, Take 1 tablet (50 mg) by mouth Daily, Disp: 90 tablet, Rfl: 1 losartan-hydroCHLOROthiazide (Hyzaar) 100-25 MG tablet, Take 1 tablet by mouth Daily, Disp: 90 tablet, Rfl: 1 methocarbamol (Robaxin) 750 MG tablet, Take 1 tablet (750 mg) by mouth 4 (four) times a day as needed for muscle spasms, Disp: 120 tablet, Rfl: 0 rosuvastatin (Crestor) 20 MG tablet, Take 1 tablet (20 mg) by mouth at bedtime, Disp: 90 tablet, Rfl: 3 tamsulosin (Flomax) 0.4 MG 24 hr capsule, Take 1 capsule (0.4 mg) by mouth Daily, Disp: 90 capsule,Rfl: 3 RECENT VITAL SIGNS 04/13/2024 4:58 PM 04/14/2024 9:31 AM 04/26/2024 1:27 PM 05/10/2024 10:51 AM 05/17/2024 8:39 AM 06/16/2024 1:07 PM 07/16/2024 8:38 AM Vitals BMI 31.91 kg/m2 30.99 kg/m2 31.57 kg/m2 30.19 kg/m2 30.56 kg/m2 30.59 kg/m2 BSA (m2) 2.23 m2 2.2 m2 2.22 m2 2.17 m2 2.18 m2 2.19 m2 Systolic 134 142 134 158 134 148 132 Diastolic 82 102 82 102 80 88 82 Heart Rate 90 89 80 95 90 83 SpO2 96 % 98 % 98 % Temp 97.8 F 97.3 F 97.1 F Height (in) 5' 10 5' 10 5' 10 Weight (lb) 222.4 216 220 210.4 213 213.2 Visit Report Report Report Report Report OBJECTIVE Physical Exam Vitals and nursing note reviewed. Constitutional: Appearance: Normal appearance. He is normal weight. HENT: Head: Normocephalic and atraumatic. Right Ear: Tympanic membrane, ear canal and external ear normal. Left Ear: Tympanic membrane, ear canal and external ear normal. Nose: Nose normal. Mouth/Throat: Mouth: Mucous membranes are moist. Eyes: Pupils: Pupils are equal, round, and reactive to light. Cardiovascular: Rate and Rhythm: Normal rate and regular rhythm. Pulses: Normal pulses. Heart sounds: Normal heart sounds. Pulmonary: Effort: Pulmonary effort is normal. Breath sounds: Normal breath sounds. Abdominal: General: Bowel sounds are normal. Palpations: Abdomen is soft. Musculoskeletal: General: Normal range of motion. Cervical back: Normal range of motion. Skin: General: Skin is warm and dry. Capillary Refill: Capillary refill takes less than 2 seconds. Neurological: General: No focal deficit present. Mental Status: He is alert and oriented to person, place, and time. Psychiatric: Mood and Affect: Mood normal. ASSESSMENT/PLAN Diagnoses and all orders for this visit: Cigarette nicotine dependence without complication Lumbar degenerative disc disease - gabapentin (Neurontin) 600 MG tablet; Take 1 tablet (600 mg) by mouth in the morning and 1 tablet(600 mg) before bedtime. Hypertensive heart disease without heart failure (CMS/HCC) - losartan (Cozaar) 50 MG tablet; Take 1 tablet (50 mg) by mouth Daily Essential (primary) hypertension (CMS/HCC) - losartan-hydroCHLOROthiazide (Hyzaar) 100-25 MG tablet; Take 1 tablet by mouth Daily Strain of left trapezius muscle, sequela - methocarbamol (Robaxin) 750 MG tablet; Take 1 tablet (750 mg) by mouth 4 (four) times a day as needed for muscle spasms Bipolar 1 disorder (CMS/HCC) Mixed hyperlipidemia (CMS/HCC) - rosuvastatin (Crestor) 20 MG tablet; Take 1 tablet (20 mg) by mouth at bedtime Benign prostatic hyperplasia with incomplete bladder emptying - tamsulosin (Flomax) 0.4 MG 24 hr capsule; Take 1 capsule (0.4 mg) by mouth Daily FOLLOW-UP Follow up in about 3 months (around 10/16/2024) for Next scheduled follow-up: [facility] . documented in this encounterChildren[facility] [id number] Instructions* Patient Instructions* Mona Morley NP - 07/16/2024 8:40 AM EDT PATIENT EDUCATION: HTN Possible complications of uncontrolled hypertension include stroke, congestive heart failure, heartattack, loss of vision, and kidney failure. Please complete labs as directed and call our office inone week if you have not received your lab results. Patient is encouraged to reduce salt in diet and to exercise at least 150 minutes per week. Avoid tobacco use and alcohol consumption. Please take all medications as prescribed. Low back pain Encouraged to follow up with meds, heat/ice, and exercises as provided. Encouraged to avoid strenuous activities that may worsen symptoms but continue with being physically active. Avoid laying/sitting for long periods of time as this will worsen muscle aches/spasms and back pain. Encouraged to usestretching. Core strengthening and proper lifting mechanics ar important. Complete imaging if ordered. Notify office or go to ER if saddle paresthesia presents or if patient develop difficulties voiding, passing stool, or new onset incontinence. [place] reviewed as necessary for use of controlled substances. HLD Reviewed most recent lipid panel or ordered new labs if needed. It is important to maintain LDL at specified goal. The risks associated with hyperlipidemia including stroke and heart attack. Take medications as directed. Dietary modifications include decreasing red meat consumption, decreasing alcohol consumption, avoiding fried fatty foods and cakes, cookies, and sweets. You are encouraged to increase fiber in your diet and eat a diet rich in omega-3. You are encouraged to exercise at least 150 minutes weekly. Barriers to the plan of care have been addressed. Obtain labs as directed and callour office if you have not received the lab results within one week. Follow up as directed. Patienthas been given a copy of the plan of care. Smoking cessation Today at your visit we discussed tobacco cessation. Tobacco abuse increases your risk of heart disease, stroke , cancer and lung disease. We have discussed your current barriers to quitting smoking and the triggers for you to have a cigarette. In addition, we discussed there are medications to helpyou quit. We did discuss tobacco cessation for approximately 4 minutes. documented in this encounterChildren's Mercy [id number] Hospital Discharge instructions Patient Education 07/13/2024 16:06:43 Prostate Cancer Screening Prostate Cancer Screening Prostate cancer screening is testing that is done to check for the presence of prostate cancer in men. The prostate gland is a walnut-sized gland that is located below the bladder and in front of therectum in males. The function of the prostate is to add fluid to semen during ejaculation. Prostatecancer is one of the most common types of cancer in men. Who should have prostate cancer screening? Screening recommendations vary based on age and other risk factors, as well as between the professional organizations who make the recommendations. In general, screening is recommended if: You are age 50 to 70 and have an average risk for prostate cancer. You should talk with your healthcare provider about your need for screening and how often screening should be done. Because most prostate cancers are slow growing and will not cause , screening in this age group is generally reserved for men who have a 10- to 15-year life expectancy. You are younger than age 50, and you have these risk factors: ?Having a father, brother, or uncle who has been diagnosed with prostate cancer. The risk is higherif your family member's cancer occurred at an early age or if you have multiple family members withprostate cancer at an early age. ?Being a male who is Black or is of [place] or sub-Saharan descent. In general, screening is not recommended if: You are younger than age 40. You are between the ages of 40 and 49 and you have no risk factors. You are 70 years of age or older. At this age, the risks that screening can cause are greater than the benefits that it may provide. If you are at high risk for prostate cancer, your health care provider may recommend that you have screenings more often or that you start screening at a younger age. How is screening for prostate cancer done? The recommended prostate cancer screening test is a blood test called the prostate-specific antigen(PSA) test. PSA is a protein that is made in the prostate. As you age, your prostate naturally produces more PSA. Abnormally high PSA levels may be caused by: Prostate cancer. An enlarged prostate that is not caused by cancer (benign prostatic hyperplasia, or BPH). This condition is very common in older men. A prostate gland infection (prostatitis) or urinary tract infection. Certain medicines such as male hormones (like testosterone) or other medicines that raise testosterone levels. A rectal exam may be done as part of prostate cancer screening to help provide information about the size of your prostate gland. When a rectal exam is performed, it should be done after the PSA level is drawn to avoid any effect on the results. Depending on the PSA results, you may need more tests, such as: A physical exam to check the size of your prostate gland, if not done as part of screening. Blood and imaging tests. A procedure to remove tissue samples from your prostate gland for testing (biopsy). This is the only way to know for certain if you have prostate cancer. What are the benefits of prostate cancer screening? Screening can help to identify cancer at an early stage, before symptoms start and when the cancer can be treated more easily. There is a small chance that screening may lower your risk of dying from prostate cancer. The chance is small because prostate cancer is a slow-growing cancer, and most men with prostate cancer from a different cause. What are the risks of prostate cancer screening? The main risk of prostate cancer screening is diagnosing and treating prostate cancer that would never have caused any symptoms or problems. This is called overdiagnosisand overtreatment. PSA screening cannot tell you if your PSA is high due to cancer or a different cause. A prostate biopsy is the only procedure to diagnose prostate cancer. Even the results of a biopsy may not tell you if your cancer needs to be treated. Slow-growing prostate cancer may not need any treatment other than monitoring, so diagnosing and treating it may cause unnecessary stress or other side effects. Questions to ask your health care provider When should I start prostate cancer screening? What is my risk for prostate cancer? How often do I need screening? What type of screening tests do I need? How do I get my test results? What do my results mean? Do I need treatment? Where to find more information The [place] [employer]: www.cancer.org [place] [employer]: www.auanet.org Contact a health care provider if: You have difficulty urinating. You have pain when you urinate or ejaculate. You have blood in your urine or semen. You have pain in your back or in the area of your prostate. Summary Prostate cancer is a common type of cancer in men. The prostate gland is located below the bladder and in front of the rectum. This gland adds fluid to semen during ejaculation. Prostate cancer screening may identify cancer at an early stage, when the cancer can be treated more easily and is less likely to have spread to other areas of the body. The prostate-specific antigen (PSA) test is the recommended screening test for prostate cancer, butit has associated risks. Discuss the risks and benefits of prostate cancer screening with your health care provider. If you are age 70 or older, the risks that screening can cause are greater than the benefits that it may provide. This information is not intended to replace advice given to you by your health care provider. Make sure you discuss any questions you have with your health care provider. Document Revised: 03/18/2022 Document Reviewed: 03/18/2022 [employer] Patient Education 2023 [employer]. 07/13/2024 16:06:40 Benign Prostatic Hyperplasia Benign Prostatic Hyperplasia Benign prostatic hyperplasia (BPH) is an enlarged prostate gland that is caused by the normal agingprocess. The prostate may get bigger as a man gets older. The condition is not caused by cancer. The prostate is a walnut-sized gland that is involved in the production of semen. It is located in front of the rectum and below the bladder. The bladder stores urine. The urethra carries stored urine ou t of the body. An enlarged prostate can press on the urethra. This can make it harder to pass urine. The buildup of urine in the bladder can cause infection. Back pressure and infection may progress to bladder damage and kidney (renal) failure. What are the causes? This condition is part of the normal aging process. However, not all men develop problems from thiscondition. If the prostate enlarges away from the urethra, urine flow will not be blocked. If it enlarges toward the urethra and compresses it, there will be problems passing urine. What increases the risk? This condition is more likely to develop in men older than 50 years. What are the signs or symptoms? Symptoms of this condition include: Getting up often during the night to urinate. Needing to urinate frequently during the day. Difficulty starting urine flow. Decrease in size and strength of your urine stream. Leaking (dribbling) after urinating. Inability to pass urine. This needs immediate treatment. Inability to completely empty your bladder. Pain when you pass urine. This is more common if there is also an infection. Urinary tract infection (UTI). How is this diagnosed? This condition is diagnosed based on your medical history, a physical exam, and your symptoms. Tests will also be done, such as: A post-void bladder scan. This measures any amount of urine that may remain in your bladder after you finish urinating. A digital rectal exam. In a rectal exam, your health care provider checks your prostate by putting a lubricated, gloved finger into your rectum to feel the back of your prostate gland. This exam detects the size of your gland and any abnormal lumps or growths. An exam of your urine (urinalysis). A prostate specific antigen (PSA) screening. This is a blood test used to screen for prostate cancer. An ultrasound. This test uses sound waves to electronically produce a picture of your prostate gland. Your health care provider may refer you to a specialist in kidney and prostate diseases (urologist). How is this treated? Once symptoms begin, your health care provider will monitor your condition (active surveillance or watchful waiting). Treatment for this condition will depend on the severity of your condition. Treatment may include: Observation and yearly exams. This may be the only treatment needed if your condition and symptoms are mild. Medicines to relieve your symptoms, including: ?Medicines to shrink the prostate. ?Medicines to relax the muscle of the prostate. Surgery in severe cases. Surgery may include: ?Prostatectomy. In this procedure, the prostate tissue is removed completely through an open incision or with a laparoscope or robotics. ?Transurethral resection of the prostate (TURP). In this procedure, a tool is inserted through the opening at the tip of the penis (urethra). It is used to cut away tissue of the inner core of the prostate. The pieces are removed through the same opening of the penis. This removes the blockage. ?Transurethral incision (TUIP). In this procedure, small cuts are made in the prostate. This lessens the prostate's pressure on the urethra. ?Transurethral microwave thermotherapy (TUMT). This procedure uses microwaves to create heat. The heat destroys and removes a small amount of prostate tissue. ?Transurethral needle ablation (TUNA). This procedure uses radio frequencies to destroy and remove a small amount of prostate tissue. ?Interstitial laser coagulation (ILC). This procedure uses a laser to destroy and remove a small amount of prostate tissue. ?Transurethral electrovaporization (TUVP). This procedure uses electrodes to destroy and remove a small amount of prostate tissue. ?Prostatic urethral lift. This procedure inserts an implant to push the lobes of the prostate away from the urethra. Follow these instructions at home: Take hztj-jyy-velyjto and prescription medicines only as told by your health care provider. Monitor your symptoms for any changes. Contact your health care provider with any changes. Avoid drinking large amounts of liquid before going to bed or out in public. Avoid or reduce how much caffeine or alcohol you drink. Give yourself time when you urinate. Keep all follow-up visits. This is important. Contact a health care provider if: You have unexplained back pain. Your symptoms do not get better with treatment. You develop side effects from the medicine you are taking. Your urine becomes very dark or has a bad smell. Your lower abdomen becomes distended and you have trouble passing urine. Get help right away if: You have a fever or chills. You suddenly cannot urinate. You feel light-headed or very dizzy, or you faint. There are large amounts of blood or clots in your urine. Your urinary problems become hard to manage. You develop moderate to severe low back or flank pain. The flank is the side of your body between the ribs and the hip. These symptoms may be an emergency. Get help right away. Call 911. Do not wait to see if the symptoms will go away. Do not drive yourself to the hospital. Summary Benign prostatic hyperplasia (BPH) is an enlarged prostate that is caused by the normal aging process. It is not caused by cancer. An enlarged prostate can press on the urethra. This can make it hard to pass urine. This condition is more likely to develop in men older than 50 years. Get help right away if you suddenly cannot urinate. This information is not intended to replace advice given to you by your health care provider. Make sure you discuss any questions you have with your health care provider. Document Revised: 04/10/2022 Document Reviewed: 04/10/2022 [employer] Patient Education 2023 [employer]. Follow Up Care 06/17/2024 15:22:58 With:PARISH Levine APRN, Meenu Joe, BRITANY, URL Address: When: Unknown Comments:Pending PSA [facility] 10-08-2024 NotePatient Education Oncology Prostate Cancer Screening Prostate cancer screening is testing that is done to check for the presence of prostate cancer in men. The prostate gland is a walnut-sized gland that is located below the bladder and in front of therectum in males. The function of the prostate is to add fluid to semen during ejaculation. Prostatecancer is one of the most common types of cancer in men. Who should have prostate cancer screening? Screening recommendations vary based on age and other risk factors, as well as between the professional organizations who make the recommendations. In general, screening is recommended if: ? You are age 50 to 70 and have an average risk for prostate cancer. You should talk with your health care provider about your need for screening and how often screening should be done. Because most prostate cancers are slow growing and will not cause , screening in this age group is generallyreserved for men who have a 10- to 15-year life expectancy. ? You are younger than age 50, and you have these risk factors: ? Having a father, brother, or uncle who has been diagnosed with prostate cancer. The risk is higher if your family member's cancer occurred at an early age or if you have multiple family members with prostate cancer at an early age. ? Being a male who is Black or is of [place] or sub-Saharan descent. In general, screening is not recommended if: ? You are younger than age 40. ? You are between the ages of 40 and 49 and you have no risk factors. ? You are 70 years of age or older. At this age, the risks that screening can cause are greater than the benefits that it may provide. If you are at high risk for prostate cancer, your health care provider may recommend that you have screenings more often or that you start screening at a younger age. How is screening for prostate cancer done? The recommended prostate cancer screening test is a blood test called the prostate-specific antigen(PSA) test. PSA is a protein that is made in the prostate. As you age, your prostate naturally produces more PSA. Abnormally high PSA levels may be caused by: ? Prostate cancer. ? An enlarged prostate that is not caused by cancer (benign prostatic hyperplasia, or BPH). This condition is very common in older men. ? A prostate gland infection (prostatitis) or urinary tract infection. ? Certain medicines such as male hormones (like testosterone) or other medicines that raise testosterone levels. A rectal exam may be done as part of prostate cancer screening to help provide information about the size of your prostate gland. When a rectal exam is performed, it should be done after the PSA level is drawn to avoid any effect on the results. Depending on the PSA results, you may need more tests, such as: ? A physical exam to check the size of your prostate gland, if not done as part of screening. ? Blood and imaging tests. ? A procedure to remove tissue samples from your prostate gland for testing (biopsy). This is the only way to know for certain if you have prostate cancer. What are the benefits of prostate cancer screening? ? Screening can help to identify cancer at an early stage, before symptoms start and when the cancer can be treated more easily. ? There is a small chance that screening may lower your risk of dying from prostate cancer. The chance is small because prostate cancer is a slow-growing cancer, and most men with prostate cancer diefrom a different cause. What are the risks of prostate cancer screening? The main risk of prostate cancer screening is diagnosing and treating prostate cancer that would never have caused any symptoms or problems. This is called overdiagnosisand overtreatment. PSA screening cannot tell you if your PSA is high due to cancer or a different cause. A prostate biopsy is the only procedure to diagnose prostate cancer. Even the results of a biopsy may not tell you if your cancer needs to be treated. Slow-growing prostate cancer may not need any treatment other than monitoring, so diagnosing and treating it may cause unnecessary stress or other side effects. Questions to ask your health care provider ? When should I start prostate cancer screening? ? What is my risk for prostate cancer? ? How often do I need screening? ? What type of screening tests do I need? ? How do I get my test results? ? What do my results mean? ? Do I need treatment? Where to find more information ? The [place] [employer]: www.cancer.org ? [place] [employer]: www.auanet.org Contact a health care provider if: ? You have difficulty urinating. ? You have pain when you urinate or ejaculate. ? You have blood in your urine or semen. ? You have pain in your back or in the area of your prostate. Summary ? Prostate cancer is a common type of cancer in men. The prostate gland is located below the bladder and in front of the rectum. (more content not included)...[facility]10-08-2024 Evaluation + Plan note Diagnostic Tests Pending * PSA Free & Total 07/13/24 [facility] 09-17-2024 Telephone encounter Note* Telephone Encounter - Mona Morley NP - 06/22/2024 1:27 PM EDT Sent [id number] Miscellaneous Notes* Telephone Encounter - Mona Morley NP - 06/22/2024 1:27 PM EDT Sent * Telephone Encounter - Ebony Lake MA - 06/21/2024 3:30 PM EDT Reviewed pt's chart, verified med. CAIN 05/17/24, 07/13/24. Please send to [facility] in [place]. documented in this encounterChildren's [facility]cy [id number] Telephone encounter Note* Telephone Encounter - Ebony Lake MA - 06/21/2024 3:30 PM EDT Reviewed pt's chart, verified med. CAIN 05/17/24, 07/13/24. Please send to [facility] in [place]. [facility] [id number] History of Present illness Narrative* Kenney Iglesias APRN-BIOLOGY MANAGER - 06/16/2024 1:30 PM EDT Images from the original note were not included. Ciaran Cancino is a 43 y.o. male presents for Medication Management. HPI: Patient is here for medication follow up Patient has improved since last appt. Mood is reported as less depressed and rates 3-4 (10worst). Feels like he hasn't felt this good in a long time. He still has some anxiety but able to deal with it. Anxiety is 3-4(10worst). Fewer mood swings. Overall calmer. Sleeping 6-7 hours. Medication compliant. No reported side effects. Denies abuse of substances. Consumes marijuana once every 3-4 days was using daily. On occasion will have a few drinks about once a m ont. Denies Medical problems since last visit. Psychosocial stressors include SUBJECTIVE: PAST MEDICAL HISTORY: Past Medical History: Diagnosis Date Anxiety Chicken pox Chronic back pain Chronic pain disorder Depression (CMS/HCC) Severiano-Danlos syndrome (CMS/HCC) Family history of cancer History of psychiatric hospitalization [address] X2 weeks History of ulcer disease Migraine headache (CMS/HCC) Sleep difficulties Tonsillitis ALLERGIES: Allergies Allergen Reactions Antihistamines, Loratadine-Type Shortness of breath Antihistamines, Chlorpheniramine-Type Other Reaction(s): Swelling of Lip/Tongue/Throat Diphenhydramine Unknown Hydrocodone Hives, Unknown and Itching SURGICAL HISTORY: Past Surgical History: Procedure Laterality Date HERNIA REPAIR 03/04/2019 4th hernia repair OTHER SURGICAL HISTORY 2018 Sprun disc and chord removal/nerves [place] LAPAROSCOPY SURG RPR INITIAL INGUINAL HERNIA Right 2017 [place] LAPAROSCOPY SURG RPR INITIAL INGUINAL HERNIA Left 10/21/2022 TONSILLECTOMY 1985 VASECTOMY 2018 FAMILY HISTORY: Family History Problem Relation Name Age of Onset Multiple myeloma Mother Diabetes Mother Hypertension Mother Skin cancer Father Bipolar disorder Sister Bone cancer Maternal Grandmother Liver cancer Paternal Grandmother SOCIAL HISTORY: Social History Tobacco Use Smoking status: Some Days Current packs/day: 0.25 Average packs/day: 0.3 packs/day for 15.0 years (3.8 ttl pk-yrs) Types: Cigarettes Smokeless tobacco: Never Tobacco comments: Less than 1 cig about every 4-5 days. Vaping Use Vaping status: Never Used Substance Use Topics Alcohol use: Yes Comment: caffeine intake: more than 4 cups per day of coffee; soda Drug use: Yes Types: Marijuana Comment: smoke/gummies Depression: Not at risk (05/17/2024) PHQ-2 PHQ-2 Score: 0 REVIEW OF SYMPTOMS - MENTAL STATUS EXAM Appearance Appearance: Casual dress, normal grooming and hygiene Attitude Attitude: Cooperative, conversant, engaged, and with good eye contact. Behavior Cooperative, conversant, engaged, and with good eye contact. Speech Normal, clear, regular rate, rhythm and volume Affect full affect appropriate with mood Mood Depressed Thought Process Organized and Clear Thought Content No Suicidal Ideation and No Homicidal ideation Perception No perceptual abnormalities noted Orientation Appropriate to age, Person, Place, and Time Memory/Concentration Short term intact/senior care intact. Insight/Judgement Good OBJECTIVE: Visit Vitals Smoking Status Some Days No results found for: TSH Lab Results Component Value Date GLU 86 03/16/2024 CALCIUM 9.5 03/16/2024 NA 140 03/16/2024 K 4.3 03/16/2024 CO2 32.3 (H) 03/16/2024 CL 104 03/16/2024 BUN 17 03/16/2024 CREATININE 1.17 03/16/2024 Lab Results Component Value Date WBC 13.3 (H) 03/16/2024 HGB 13.9 03/16/2024 HCT 42.4 03/16/2024 MCV 82.5 (L) 03/16/2024 PLT 297 03/16/2024 No results found for: CHOL No results found for: HDL No results found for: LDLCALC No results found for: TRIG ASSESSMENT AND PLAN: Assessment/Plan Assess/Plan SmartLinks: There are no diagnoses linked to this encounter. This is a 43-year-old male who was referred by counselor Gaurav Cline For medication management oflong history of depression and anxiety. Patient reported that his symptoms have been harder to control over the last several years and his medications have been managed by his primary care physician.Patient is currently taking Effexor and Prozac at the same time along with Seroquel at night. Patient stated, I need help with my anxiety and My behavior. Plan to increase seroquel and taper off effexor. Discussed diagnosis and plan for stabilization. Bipolar Disorder most recent depressed Anxiety Cannabis use Psych Medication List Increase Zoloft 100 daily -risks vs benefits -target depresson and anxiety. Seroquel 200mg po at hs Vistaril 50mg q8 hours prn anxiety. -not effective. Would like to return to counseling. Patient was seen Face to Face, Reviewed chart documents and documentation, Visit time : 20min 6 weeks for follow up to see zoloft is working. documented in this encounterChildren[facility] [id number] [facility] of Present illness Narrative* Mona Morley, W[employer]IT [employer] CONDITIONING MECHANIC - 11/13/2023 9:40 AM EST Images from the original note were not included. SUBJECTIVE Ciaran Cancino is a 43 y.o. male who presents with complaints of constant severe right lower inguinal pain with associated sweating and vomiting for the past 5 days. Patient rates pain 5-6/10 stating he can not stand straight. Denying diarrhea, constipation, or bowel problems. Stating he has been urinating fine. Has tried OTC Tylenol with mild relief of symptoms. CURRENT MEDICATIONS Current Outpatient Medications: famotidine (Pepcid) 40 MG tablet, Take 1 tablet (40 mg) by mouth at bedtime., Disp: 90 tablet, Rfl:1 FLUoxetine (PROzac) 40 MG capsule, Take 1 capsule (40 mg) by mouth in the morning., Disp: 90 capsule, Rfl: 1 fluticasone (Flonase) 50 MCG/ACT nasal spray, Administer 2 sprays into each nostril in the morning.Shake gently. Before first use, prime pump. After use, clean tip and replace cap.., Disp: 16 g, Rfl: 5 gabapentin (Neurontin) 600 MG tablet, Take 1 tablet (600 mg) by mouth in the morning and 1 tablet (600 mg) before bedtime., Disp: 60 tablet, Rfl: 2 hydrOXYzine pamoate (Vistaril) 50 MG capsule, Take 1 capsule (50 mg) by mouth every 8 (eight) hoursif needed for anxiety May take 1-2 capsules as needed., Disp: 90 capsule, Rfl: 0 losartan (Cozaar) 50 MG tablet, Take 1 tablet (50 mg) by mouth in the morning., Disp: 90 tablet, Rfl: 1 losartan-hydroCHLOROthiazide (Hyzaar) 100-25 MG tablet, Take 1 tablet by mouth in the morning., Disp: 90 tablet, Rfl: 0 QUEtiapine (SEROquel) 100 MG tablet, Take 1 tablet (100 mg) by mouth at bedtime., Disp: 90 tablet, Rfl: 1 QUEtiapine (SEROquel) 25 MG tablet, Take 1 tablet (25 mg) by mouth at bedtime., Disp: 90 tablet, Rfl: 1 tamsulosin (Flomax) 0.4 MG 24 hr capsule, Take 1 capsule (0.4 mg) by mouth in the morning., Disp: 90 capsule, Rfl: 1 venlafaxine XR (Effexor XR) 150 MG 24 hr capsule, Take 1 capsule (150 mg) by mouth in the morning. Do not crush or chew.., Disp: 30 capsule, Rfl: 0 methocarbamol (Robaxin) 750 MG tablet, Take 1 tablet (750 mg) by mouth 4 (four) times a day as needed for muscle spasms for up to 5 days, Disp: 20 tablet, Rfl: 0 predniSONE (Deltasone) 20 MG tablet, Take two tablets (40 mg) daily for five days, then take one tablet (20 mg) daily for five days. Take with food. (Patient not taking: Reported on 09/25/2023), Disp: 15 tablet, Rfl: 0 traMADol (Ultram) 50 MG tablet, Take 1 tablet (50 mg) by mouth every 6 (six) hours if needed for severe pain for up to 5 days, Disp: 20 tablet, Rfl: 0 RECENT VITAL SIGNS 05/30/2023 10:17 AM 06/05/2023 10:31 AM 07/08/2023 9:13 AM 09/01/2023 10:34 AM 09/25/2023 1:19 PM 10/30/2023 9:27 AM 11/13/2023 9:31 AM Vitals BMI 29.07 kg/m2 29.53 kg/m2 29.36 kg/m2 29.73 kg/m2 30.79 kg/m2 29.53 kg/m2 30.56 kg/m2 BSA (m2) 2.13 m2 2.15 m2 2.14 m2 2.15 m2 2.19 m2 2.15 m2 2.18 m2 Systolic 138 150 138 164 142 138 166 Diastolic 98 98 88 96 104 80 112 Heart Rate 97 84 86 86 83 83 80 SpO2 98 % 98 % 98 % 97 % 98 % 98 % 97 % Temp 97.6 F 98 F 97.1 F 97.9 F 97.3 F 97.4 F 97.6 F Height (in) 5' 10 5' 10 5' 10 5' 10 5' 10 5' 10 Weight (lb) 202.6 205.8 204.6 207.2 214.6 205.8 213 Visit Report Report Report Report Report Report Report Report OBJECTIVE Physical Exam Vitals and nursing note reviewed. Constitutional: Appearance: Normal appearance. He is normal weight. HENT: Head: Normocephalic and atraumatic. Right Ear: Tympanic membrane, ear canal and external ear normal. Left Ear: Tympanic membrane, ear canal and external ear normal. Nose: Nose normal. Mouth/Throat: Mouth: Mucous membranes are moist. Eyes: Pupils: Pupils are equal, round, and reactive to light. Cardiovascular: Rate and Rhythm: Normal rate and regular rhythm. Pulses: Normal pulses. Heart sounds: Normal heart sounds. Pulmonary: Effort: Pulmonary effort is normal. Breath sounds: Normal breath sounds. Abdominal: General: Bowel sounds are normal. Palpations: Abdomen is soft. Hernia: There is no hernia in the left inguinal area, right femoral area, left femoral area or right inguinal area. Comments: Tenderness with light palpation around surigical scar in right inguinal area. With Valsalva, there is no evidence of recurrent hernia. Musculoskeletal: General: Normal range of motion. Cervical back: Normal range of motion. Skin: General: Skin is warm and dry. Capillary Refill: Capillary refill takes less than 2 seconds. Neurological: General: No focal deficit present. Mental Status: He is alert and oriented to person, place, and time. Psychiatric: Mood and Affect: Mood normal. ASSESSMENT/PLAN Diagnoses and all orders for this visit: Right inguinal pain - traMADol (Ultram) 50 MG tablet; Take 1 tablet (50 mg) by mouth every 6 (six) hours if needed for severe pain for up to 5 days - methocarbamol (Robaxin) 750 MG tablet; Take 1 tablet (750 mg) by mouth 4 (four) times a day as needed for muscle spasms for up to 5 days FOLLOW-UP Follow up in about 1 week (around 11/20/2023) for Next scheduled follow-up: right inguinal hernia (40). documented in this encounterChildren's [facility]cy [id number] Instructions* Patient Instructions* Mona Morley NP - 11/13/2023 9:40 AM EST PATIENT EDUCATION: documented in this encounterChildren's Mercy [id number] Evaluation note* Encounter Date Diagnosis Assessment Notes Treatment Notes Treatment Clinical Notes Jun, Suprapubic abdominal pain (ICD-10 - R10.2) Patient reports that he has had many hernia repair surgeries to his abdomen his pain could be from post surgical adhesions Jun, Dark stools (ICD-10 - R19.5) Patient reports that he has increased bowel movements Patient reports that he has green to dark brown stools Patient is to have a colonoscopy prep instructions given today Risks and benefits of procedure explained to patient; patient verbalizes understanding. Jun, Abdominal pain (ICD-10 - R10.9) Pain could be post surgical symptoms [employer] Other Evaluation + Plan note Future Appointments Appointment Date:10/21/2024 08:00:00 AM Scheduled Provider:PARISH Levine APRN, [place] X Location:[facility] Appointment Type:URO Office Visit [facility] evaluation + Plan note Future Appointments Appointment Date:12/13/2024 03:50:00 PM Scheduled Provider:PARISH Levine APRN, [place] X Location:[facility] Appointment Type:URO Complex Office Visit [facility] evaluation noteNo assessment information available [facility] Work Phone: Evaluation note* Diagnosis Right inguinal pain- Primary Abdominal pain, right lower quadrant documented in this encounter [facility]* Diagnosis Onset Date Resolution Status Shepherd esophagus acute GERD (gastroesophageal reflux disease) noneactive [facility] Work Phone: Evaluation note* Diagnosis Hypertensive heart disease without heart failure (CMS/HCC)- Primary Unspecified hypertensive heart disease without heart failure Lumbar degenerative disc disease Essential (primary) hypertension (CMS/HCC) Unspecified essential hypertension Strain of left trapezius muscle, sequela Bipolar 1 disorder (CMS/HCC) Mixed hyperlipidemia (CMS/HCC) Mixed hyperlipidemia Benign prostatic hyperplasia with incomplete bladder emptying Cigarette nicotine dependence without complication [facility] encounter [facility]* Diagnosis Bipolar 1 disorder (CMS/HCC) Anxiety Anxiety state, unspecified documented [facility]* Diagnosis Bipolar 1 disorder (CMS/HCC) Anxiety Anxiety state, unspecified [facility]* Diagnosis Bipolar 1 disorder (CMS/HCC) Anxiety Anxiety state, unspecified [facility]* Diagnosis Need for follow-up care after discharge- Primary Strain of left trapezius muscle, sequela Benign prostatic hyperplasia with incomplete bladder emptying Degeneration of intervertebral disc of lumbar region with discogenic back pain and lower extremity pain Cigarette nicotine dependence without complication Right groin pain Abdominal pain, right lower quadrant documented [facility] this [facility]* Diagnosis Lumbar degenerative disc disease documented in this [facility]* Diagnosis Bipolar 1 disorder (CMS/[facility]) Anxiety Anxiety state, unspecified [facility]* Diagnosis Chronic bilateral low back pain without sciatica- Primary Lumbar radiculitis Thoracic or lumbosacral neuritis or radiculitis, unspecified Bipolar 1 disorder (HCC) Bipolar I disorder, most recent episode (or current) unspecified Chronic pain syndrome Chronic bilateral low back pain without sciatica Lumbar radiculitis Thoracic or lumbosacral neuritis or radiculitis, unspecified [facility] Diagnosis Chronic bilateral low back pain without sciatica Lumbar radiculitis Thoracic or lumbosacral neuritis or radiculitis, unspecified [facility]* Diagnosis Bipolar 1 disorder (CMS/HCC) Anxiety Anxiety state, unspecified Bipolar disorder, unspecified (CMS/[facility]) Bipolar disorder, unspecified [facility]* Diagnosis Degeneration of intervertebral disc of lumbar region with discogenic back pain and lower extremity pain- Primary Mixed hyperlipidemia (CMS/HCC) Mixed hyperlipidemia Seasonal allergic rhinitis due to pollen Hypertensive heart disease without heart failure (CMS/HCC) Unspecified hypertensive heart disease without heart failure Essential (primary) hypertension (CMS/HCC) Unspecified essential hypertension Cigarette nicotine dependence without complication [facility]* Diagnosis Bipolar 1 disorder (CMS/HCC) Anxiety Anxiety state, unspecified [facility]* Diagnosis Degeneration of intervertebral disc of lumbar region with discogenic back pain and lower extremity pain- Primary Seasonal allergic rhinitis due to pollen Anxiety Anxiety state, unspecified Hypertensive heart disease without heart failure (CMS/HCC) Unspecified hypertensive heart disease without heart failure Essential (primary) hypertension (CMS/HCC) Unspecified essential hypertension Strain of left trapezius muscle, sequela Mixed hyperlipidemia (CMS/HCC) Mixed hyperlipidemia Benign prostatic hyperplasia with incomplete bladder emptying Cigarette nicotine dependence without complication Gastroesophageal reflux disease without esophagitis Esophageal reflux documented [facility]* Diagnosis Chronic pain syndrome- Primary Bipolar 1 disorder (CMS/HCC) [facility]* Diagnosis Bipolar 1 disorder (CMS/HCC) Anxiety Anxiety state, unspecified Insomnia, unspecified type [facility]* Diagnosis Anxiety- Primary Anxiety state, unspecified Bipolar 1 disorder (CMS/HCC) Insomnia, unspecified type documented in this encounter [facility] note Author Anastacia Jesus [facility] May 27, 2024 1:22pm Note Date/Time May 27, 2024 1: 22pm [facility] [address] [place] [address] Gastroenterology H&P Signed Patient: Ciaran Cancino Jr MR#: [id number] : 1980 Acct:[id number] Age/Sex: 43 / M Adm Date: 4 Loc: Room: Type: [facility] Attending Dr: Anastacia Jesus MD Copies to: MD Anastacia Garcia MD~ Date of Service: 05/27/2024 HISTORY & PHYSICAL: Patient's history with special attention to the cardiovascular, pulmonary systems and the current problem was reviewed with the patient immediately prior to the procedure. Present medications and doses reviewed in the EMR. Allergies and pertinent laboratory tests were also reviewedat this time in the EMR. The physical examination, as below, was then performed. Indication, assessment and HPI: 43-year-old man with chronic heartburn here for EGD to assess for Shepherd's Family history of GI malignancy? No PHYSICAL EXAMINATION General appearance: NAD Skin: No jaundice Head: NC/AT Eyes: Anicteric Neck: Supple Lungs: Normal respiratory effort, no use of accessory muscles Abdomen: nondistended Neuro: Ox3. REVIEW OF SYSTEMS Constitutional: Denies malaise, fevers Cardiovascular: Denies chest pain, palpitations Respiratory: Denies shortness of breath, wheezing Gastrointestinal: As per HPI Genitourinary: Denies dysuria, polyuria Musculoskeletal: Denies joint swelling, joint stiffness Neurological: Denies confusion, numbness, tingling Endocrine: Denies fatigue Written informed consent obtained from the patient. Risks (including but not limited to perforation, infection, bloating, bleeding, need for emergent surgeryand loss of life), benefits and alternatives explained and questions answered. The patient verbalized understanding. Based on history patient is an appropriate candidate for the procedure. Anastacia Jesus M.D. Documented By: Anastacia Jesus MD 05/27/24 1321 Signed By: <Electronically signed by Anastacia Jesus MD> 05/27/24 1322 [facility] Work Phone: Hisbqzl general Narrative - Reported* Type Description Date Medical History LOW BACK PAIN Medical History DEPRESSION Medical History VIT D DEFICIENCY Surgical History tonsillectomy 1985 Surgical History hernia repair 2022 Hospitalization History ALLERGIC RECATION TO ANT IHISTAMINES [employer] Other History of Present illness Narrative* Kenney Iglesias, AGRICULTURAL [employer]OP FARM MANAGER-BIOLOGY MANAGER - 11/30/2024 3:00 PM EST Ciaran Cancino is a 44 y.o. male presents for Medication Management. HPI: Patient is here for medication follow up Last visit patient's zoloft was increased. Patient has improved since last appt. Mood is reported as depressed and rates 4 (10worst). Patient states better than it was. Had 3 panicattacks since last visit in crowd of people. Anxiety is 5-6(10worst) Sleeping 6-8 hours. Reports some difficulty falling asleep. Medication compliant. May miss once in a while.No reported side effects. Uses marijuana one every 3 days. Was using daily. Medical problems since last visit. Sciatica. Currently on steroids. Psychosocial stressors include caring for his mother who has bone cancer. Loss of aunt. SUBJECTIVE: PAST MEDICAL HISTORY: Past Medical History: Diagnosis Date Anxiety Chicken pox Chronic back pain Chronic pain disorder Depression (CMS/HCC) Severiano-Danlos syndrome (CMS/HCC) Family history of cancer History of psychiatric hospitalization [address] X2 weeks History of ulcer disease Migraine headache (CMS/HCC) Sleep difficulties Tonsillitis ALLERGIES: Allergies Allergen Reactions Antihistamines, Loratadine-Type Shortness of breath Other Reaction(s): Swelling of Lip/Tongue/Throat Antihistamines, Chlorpheniramine-Type Other Reaction(s): Swelling of Lip/Tongue/Throat Diphenhydramine Unknown Hydrocodone Hives, Unknown and Itching SURGICAL HISTORY: Past Surgical History: Procedure Laterality Date HERNIA REPAIR 03/04/2019 4th hernia repair OTHER SURGICAL HISTORY 2018 Sprun disc and chord removal/nerves NV LAPAROSCOPY SURG RPR INITIAL INGUINAL HERNIA Right 2017 [place] LAPAROSCOPY SURG RPR INITIAL INGUINAL HERNIA Left 10/21/2022 TONSILLECTOMY 1985 VASECTOMY 2018 FAMILY HISTORY: Family History Problem Relation Name Age of Onset Multiple myeloma Mother Diabetes Mother Hypertension Mother Skin cancer Father Bipolar disorder Sister Bone cancer Maternal Grandmother Liver cancer Paternal Grandmother SOCIAL HISTORY: Social History Tobacco Use Smoking status: Some Days Current packs/day: 0.25 Average packs/day: 0.3 packs/day for 15.0 years (3.8 ttl pk-yrs) Types: Cigarettes Smokeless tobacco: Never Tobacco comments: Less than 1 cig about every 4-5 days. Vaping Use Vaping status: Never Used Substance Use Topics Alcohol use: Not Currently Comment: caffeine intake: more than 4 cups per day of coffee; soda Drug use: Yes Types: Marijuana Comment: smoke/gummies Patient Health Questionnaire-9 Score: 12 DOTTIE-7 Total Score: 19 REVIEW OF SYMPTOMS - MENTAL STATUS EXAM Appearance Appearance: Normal grooming and hygiene. Appears stated age. Dressed appropriately for weather. Behavior Calm, cooperative, pleasant. Good posture.. No abnormal movements. Speech Normal, clear, regular rate, rhythm and volume Affect Blunted Mood Anxious and Depressed Thought Process Organized, logical, and goal directed Thought Content Denies suicidal and homicidal ideation Perception Denies auditory and visual hallucinations. No evidence of delusions. Orientation Appropriate to age, Person, Place, and Time Memory/Concentration Immediate, recent and remote memory intact Insight/Judgement Good. Able to make reasonable life decisions. OBJECTIVE: Visit Vitals BP 138/86 (BP Location: Right arm, Patient Position: Sitting, BP Cuff Size: Adult) Pulse 76 Wt 213 lb BMI 30.56 kg/m Smoking Status Some Days BSA 2.18 m No results found for: TSH Lab Results Component Value Date GLU 86 03/16/2024 CALCIUM 9.5 03/16/2024 NA 140 03/16/2024 K 4.3 03/16/2024 CO2 32.3 (H) 03/16/2024 CL 104 03/16/2024 BUN 17 03/16/2024 CREATININE 1.17 03/16/2024 Lab Results Component Value Date WBC 8.1 07/19/2024 HGB 15.3 07/19/2024 HCT 45.1 07/19/2024 MCV 83.8 07/19/2024 PLT 272 07/19/2024 No results found for: CHOL No results found for: HDL No results found for: LDLCALC No results found for: TRIG ASSESSMENT AND PLAN: Assessment/Plan This is a 44-year-old male who was referred by counselor Gaurav Cline For medication management oflong history of depression and anxiety. Patient reported that his symptoms have been harder to control over the last several years and his medications have been managed by his primary care physician.Patient is currently taking Effexor and Prozac at the same time along with Seroquel at night. Patient stated, I need help with my anxiety and My behavior. Plan to increase seroquel and taper off effexor. Discussed diagnosis and plan for stabilization. Bipolar Disorder most recent depressed Anxiety Cannabis use Psych Medication List Zoloft 100mg daily -risks vs benefits -target depresson and anxiety. Gabapentin 600mg tid -PCP Seroquel 300mg po at bedtime Add trazodone 50mg at hs Vistaril q8 hours prn 50 mg Is Pleased with his progress and would like to continue current medications and tolerating increasein the Zoloft. Continues with counseling. Cut down on cannabis use. Patient was seen Face to Face, Reviewed chart documents and documentation, Visit time : 25min Follow up: 5 weeks * Chayo Giordano - 11/30/2024 11:30 AM EST Patient would like to discuss going up on anxiety medication. documented in this encounterNOJeff[facility] HospitalHospital [facility] Narrative No data available for this section [facility] Hospital Discharge instructions Additional Instructions 1. No driving if taking narcotic pain medication. 2. No lifting more than 20 pounds for 3 weeks. 3. May shower.[facility] Work Phone: Hospital Discharge instructions No data available for this section [facility] progress note No data available for this section [facility] reason for referral (narrative)* Diagnostic Procedure Only (Routine) - Closed Specialty Diagnoses / Procedures Referred By Preet t Referred To Contact XR IMAGING Diagnoses Chronic bilateral low back pain without sciatica Lumbar radiculitis Procedures XR LUMBAR MOTION 4V AP/LAT/ FLEX/EXT RADEX SPINE LUMBOSACRAL MINIMUM 4 VIEWS Marcela Mayen MD [address] [place] [address] [place] [address] Referral ID Status Reason Start Date Expiration Date V isits Requested Visits Authorized [id number] Closed Auto-Generate d Referral 10/08/2024 11/07/2025 1 1 [facility] Assessments Diagnosis Low back pain, unspecified back pain laterality, unspecified chronicity, unspecified whether sciatica present Advance Directives No Advanced Directives Records FoundDocuments on File Type Date Recorded 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 Advance Directives and Homero ulloa Will 04/21/2020 10:52 AM Advance Directive Response Recorded Date/ Time Advance Directives No November 14, 2017 12:09pm Advance Directive Response Recorded Date/ Time Advance Directives No November 14, 2017 11:09am Summary Purpose Family History No Family History Records Found Relationship Condition Age at Onset Recorded Date/T toro Not Specified Diabetes mellitus Unknown Hypertension Unknown Malignant neoplasm of bone Unknown father Diabetes mellitus Unknown brother Hypertension Unknown Gout Unknown Relationship Condition Age at Onset Recorded Date/T toro Not Specified Diabetes mellitus Unknown Hypertension Unknown Malignant neoplasm of bone Unknown father Diabetes mellitus Unknown brother Hypertension Unknown Gout Unknown father Malignant neoplasm Unknown History of stroke Unknown Diabetes mellitus Unknown grandparent Malignant neoplasm Unknown Unknown grandparent History of stroke Unknown Relationship Condition Age at Onset Recorded Date/T toro mother Diabetes mellitus Unknown Malignant neoplasm of bone Unknown Hypertension Unknown father Diabetes mellitus Unknown History of stroke Unknown Malignant neoplasm Unknown Malignant neoplasm of skin Unknown brother Gout Unknown grandparent Unknown Chief Complaint and Reason for Visit Chief Complaint Left Inguinal Hernia Chief Complaint Left Inguinal Hernia Left Inguinal Hernia Hernia Chief Complaint Left Inguinal Hernia Left Inguinal Hernia Left Inguinal Hernia Hernia Chief Complaint left inguinal hernia Chief Complaint left inguinal hernia left inguinal hernia Chief Complaint Z00.00 F41.8 Z12.5 I 10 N52.9 E55.9 M54.12 M25.512 Chief Complaint Z00.00 F41.8 Z12.5 I 10 N52.9 E55.9 M54.12 M25.512 GERD Gastroesophageal reflux disease (GERD) Chief Complaint Z00.00 F41.8 Z12.5 I 10 N52.9 E55.9 M54.12 M25.512 GERD Gastroesophageal reflux disease (GERD) Follow up/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 GERD (gastroesophageal reflux disease) Chief Complaint GERD Gastroesophageal reflux disease (GERD) Follow up/Discuss Shepherd's E55.9 D50.9 R97.20 Reason for Visit Shepherd esophagus GERD (gastroesophageal reflux disease) Chief Complaint Admit Date R97December 01, 2024 5:41pm Reason for Referral Specialty Diagnoses / Procedures Referred By Preet lux Referred To Contact [facility] Diagnoses Chronic bilateral low back pain without sciatica Lumbar radiculitis Procedures CONSULT TO PHYSICAL THERAPY PHYSICAL THERAPY EVALUATION HIGH COMPLEX 45 MINS Marcela Mayen MD [address] [place] [address] [facility] [place] [facility] [place] [address] Referral ID Status Reason Start Date Expiration Date Visits Requested Visits Authorized [id number] Pending Review Auto-Generat ed Referral 10/08/2024 10/08/2025 1 1 Specialty Diagnoses / Procedures Referred By Contac t Referred To Contact XR IMAGING Diagnoses Chronic bilateral low back pain without sciatica Lumbar radiculitis Procedures XR LUMBAR MOTION 4V AP/LAT/ FLEX/EXT RADEX SPINE LUMBOSACRAL MINIMUM 4 VIEWS Marcela Mayen MD [address] [place] [address] Xr Imaging [facility] Referral ID Status Reason Start Date Expiration Date V isits Requested Visits Authorized [id number] Closed Auto-Generate d Referral 10/08/2024 11/07/2025 1 1 Additional Source Comments (unrecognized sect ion and content) No Status Records FoundNo Status Records FoundNo Status Records FoundNo Status Records FoundNo Status Records FoundNo Status Records FoundNo Status Records FoundNo Status Records FoundNo Status Records FoundNo Status Records Found INFORMATION SOURCE (unrecogn ized section and content) DATE CREATED [facility] DATE CREATED AUTHOR AUTHOR'S ORGANIZ ATION 04/25/2021 [facility] DATE CREATED AUTHOR AUTHOR'S ORGANIZ ATION 02/08/2023 [facility] DATE CREATED AUTHOR AUTHOR'S ORGANIZ ATION 10/15/2024 [facility] DATE CREATED AUTHOR AUTHOR'S ORGANIZ ATION 10/15/2024 [facility] DATE CREATED AUTHOR AUTHOR'S ORGANIZ ATION 12/06/2024 [facility] DATE CREATED AUTHOR AUTHOR'S ORGANIZ ATION 12/15/2024 [facility] DATE CREATED AUTHOR AUTHOR'S ORGANIZ ATION 12/18/2024 [facility] DATE CREATED AUTHOR AUTHOR'S ORGANIZ ATION 12/24/2024 [facility] DATE CREATED AUTHOR AUTHOR'S ORGANIZ ATION 01/07/2025 [facility] EPIC Care Teams (unrecognized sec tion and content) Team Status: Active Member Role Status Dates Connor Pineda MD Primary Care Provider Active Team Status: Active Member Role Status Dates Connor Pineda MD Primary Care Provider Active S tart: September 06, 2024 Will Benavidez DO Attending Provider Active Sta rt: September 06, 2024 Team Status: Inactive Member Role Status Dates Connor Pineda MD Primary Care Provider Active S tart: December 01, 2024 End: December 01, 2024 Meenu Levine [facility] Attending Provider Active Start: December 01, 2024 End: December 01, 2024 Team Status: Inactive Member Role Status Dates Connor Pineda MD Primary Care Provider Active S tart: March 16, 2024 End: March 16, 2024 Mona Morley NP-C Attending Provider Active Sta rt: March 16, 2024 End: March 16, 2024 Team Status: Inactive Member Role Status Dates Connor Pineda MD Primary Care Provider Active Donato Jason MD Attending Provider Active Pacu Nurse Relationship Specialty Start Date End Date Connor Pineda MD [address] [place] [address] PCP - General Family Medicine 03/14/23 Mable Go [employer] CONDITIONING MECHANIC [address] [place] [address] PCP - [facility] 04/05/23 Mona Morley NP [address] [place] [address] Nurse Practitioner Family Medicine 04/09/23 Anitra Yap NP [address] [place] [address] Nurse Practitioner Pulmonary Disease 04/09/23 Pacu Nurse Relationship Specialty Start Date End Date Connor Pineda MD [address] [place] [address] PCP - General [facility] 03/14/23 Mable Go NP [address] [place] [address] PCP - [facility] 04/05/23 Mona Morley NP [address] [place] [address] Nurse Practitioner Family Medicine 04/09/23 Anitra Yap NP [address] [place] [phone] Nurse Practitioner Pulmonary Disease 04/09/23 Pacu Nurse Relationship Specialty Start Date End Date Connor Pineda MD [address] [place] [address] [facility] 03/14/23 Mable Go NP [address] [place] [address] PCP - [facility] 04/05/23 Mona Morley NP [address] [place] [address] Nurse Practitioner Family Medicine 04/09/23 Anitra Yap NP [address] [place] [phone] Nurse Practitioner Pulmonary Disease 04/09/23 Team Status: Inactive Member Role Status Dates Connor Pineda MD Primary Care Provider Active S tart: May 27, 2024 End: May 27, 2024 Anastacia Jesus MD Attending Provider Active Start: May 27, 2024 End: May 27, 2024 RJEI Benson Referring Provider Active Sta rt: May 27, 2024 End: May 27, 2024 Team Status: Active Member Role Status Dates Connor Pineda MD Primary Care Provider Active S tart: May 27, 2024 Anastacia Jesus MD Attending Provider, Other Provider Active Start: May 27, 2024 REJI Benson Referring Provider Active Sta rt: May 27, 2024 Team Status: Inactive Member Role Status Dates Connor Pineda MD Primary Care Provider Active S tart: June 14, 2024 End: June 14, 2024 Juan C Johnson APRN Attending Provider Active Start: June 14, 2024 End: June 14, 2024 Pacu Nurse Relationship Specialty Start Date End Date Connor Pineda MD [address] [place] [id number] PCP - General [facility] 03/14/23 Mona Morley NP [address] [place] [address] PCP - [facility] 01/05/24 Mona Morley NP [address] [place] [address] Nurse Practitioner Family Medicine 04/09/23 Anitra Yap NP [address] [place] [address] Nurse Practitioner Pulmonary Disease 04/09/23 Pacu Nurse Relationship Specialty Start Date End Date Connor Pineda MD [address] [place] [address] PCP - General Family Medicine 03/14/23 Mona Morley NP [address] [place] [address] PCP - [facility] 01/05/24 Mona Morley NP [address] [place] [address] Nurse Practitioner Family Medicine 04/09/23 Anitra Yap NP [address] [place] [id number] Nurse Practitioner Pulmonary Disease 04/09/23 Pacu Nurse Relationship Specialty Start Date End Date Connor Pineda MD [address] [place] [address] [facility] 03/14/23 Mona Morley NP [address] [place] [address] PCP - [facility] 01/05/24 Mona Morley NP [address] [place] [address] Nurse Practitioner Family Medicine 04/09/23 Anitra Yap NP [address] [place] [address] Nurse Practitioner Pulmonary Disease 04/09/23 Team Status: Inactive Member Role Status Dates Connor Pineda MD Primary Care Provider Active S tart: July 19, 2024 End: July 19, 2024 Mona Morley NP-C Attending Provider Active Sta rt: July 19, 2024 End: July 19, 2024 Meenu Orzech , TRESTLEMAN-BC Other Provider Active Sta rt: July 19, 2024 End: July 19, 2024 Pacu Nurse Relationship Specialty Start Date End Date Connor Pineda MD [address] [place] [address] PCP - General Family [facility] 03/14/23 Mona Morley NP [address] [place] [address] PCP - [facility] 01/05/24 Mona Morley NP [address] [place] [address] Nurse Practitioner Family Medicine 04/09/23 Anitra Yap NP [address] [place] [address] Nurse Practitioner Pulmonary Disease 04/09/23 Pacu Nurse Relationship Specialty Start Date End Date Connor Pineda MD [address] [place] [address] PCP - General [facility] 03/14/23 Mona Morley NP [address] [place] [address] PCP - [facility] 01/05/24 Mona Morley NP [address] [place] [address] Nurse Practitioner Family Medicine 04/09/23 Anitra Yap NP [address] [place] [address] Nurse Practitioner Pulmonary Disease 04/09/23 Pacu Nurse Relationship Specialty Start Date End Date Connor Pineda MD [address] [place] [address] PCP - General [facility] 03/14/23 Mona Morley, RADHA [address] [place] [address] PCP - [facility] 01/05/24 Mona Morley NP [address] [place] [address] Nurse Practitioner Family Medicine 04/09/23 Anitra Yap NP [address] [place] [address] Nurse Practitioner Pulmonary Disease 04/09/23 Pacu Nurse Relationship Specialty Start Date End Date Connor Pineda MD [address] [place] [address] PCP - General [facility] 03/14/23 Mona Morley NP [address] [place] [address] PCP - [facility] 01/05/24 Mona Morley NP [address] [place] [address] Nurse Practitioner Family Medicine 04/09/23 Anitra Yap NP [address] [place] [address] Nurse Practitioner Pulmonary Disease 04/09/23 Pacu Nurse Relationship Specialty Start Date End Date Connor Pineda MD [address] [place] [address] PCP - General [facility] 03/14/23 Mona Morley, RADHA [address] [place] [address] PCP - [facility] 01/05/24 Mona Morley, [employer]ING MECHANIC [address] [place] [address] Nurse Practitioner Family Medicine 04/09/23 Anitra Yap NP [address] [place] [address] Nurse Practitioner Pulmonary Disease 04/09/23 Pacu Nurse Relationship Specialty Start Date End Date Connor Pineda MD [address] [place] [address] PCP - General [facility] 03/14/23 Mona Morley, [employer] CONDITIONING MECHANIC [address] [place] [address] PCP - [facility] 01/05/24 Mona Morley, [employer] CONDITIONING MECHANIC [address] [place] [address] Nurse Practitioner Family Medicine 04/09/23 Anitra Yap NP [address] [place] [address] Nurse Practitioner Pulmonary Disease 04/09/23 Pacu Nurse Relationship Specialty Start Date End Date Connor Pineda MD [address] [place] [address] PCP - General Family Medicine 06/21/15 Mona Galarza, TERADATA SOLUTION ARCHITECT [address] [place] [address] Referring Family Medicine 04/09/18 Mona Morley, AGRICULTURAL CROP FARM MANAGER [address] [place] [address] Referring Family Medicine 09/10/24 Pacu Nurse Relationship Specialty Start Date End Date Connor Pineda MD [address] [place] [address] PCP - General Family Medicine 06/21/15 Mona Galarza, TERADATA SOLUTION ARCHITECT [address] [place] [address] Referring Family Medicine 04/09/18 Mona Morley, AGRICULTURAL CROP FARM MANAGER [address] [place] [address] Referring Family Medicine 09/10/24 Pacu Nurse Relationship Specialty Start Date End Date Connor Pineda MD [address] [place] [address] PCP - General Family Medicine 06/21/15 Mona Galarza, OLIVIA [address] [place] [address] Referring Family Medicine 04/09/18 Mona Morley, AGRICULTURAL CROP FARM MANAGER [address] [place] [address] [facility] Family Medicine 09/10/24 Pacu Nurse Relationship Specialty Start Date End Date Connor Pineda MD [address] [place] [address] PCP - General [facility] 03/14/23 Mona Morley [employer] CONDITIONING MECHANIC [address] [place] [address] PCP - [facility] 01/05/24 Mona Morley NP [address] [place] [address] Nurse Practitioner Family [facility] 04/09/23 Anitra Yap NP [address] [place] [address] Nurse Practitioner Pulmonary Disease 04/09/23 Pacu Nurse Relationship Specialty Start Date End Date Connor Pineda MD [address] [place] [address] PCP - General [facility] 03/14/23 Mona Morley NP [address] [place] [address] PCP - [facility] 01/05/24 Mona Morley NP [address] [place] [address] Nurse Practitioner Family [facility] 04/09/23 Anitra Yap NP [address] [place] [address] Nurse Practitioner Pulmonary Disease 04/09/23 Pacu Nurse Relationship Specialty Start Date End Date Connor Pineda MD [address] [place] [address] PCP - General Family [facility] 03/14/23 Mona Morley NP [address] [place] [address] PCP - [facility] 01/05/24 Mona Morley NP [address] [place] [address] Nurse Practitioner Family Medicine 04/09/23 Anitra Yap NP [address] [place] [address] Nurse Practitioner Pulmonary Disease 04/09/23 Pacu Nurse Relationship Specialty Start Date End Date Connor Pineda MD [address] [place] [address] PCP - General Family [facility] 03/14/23 Mona Morley NP [address] [place] [address] PCP - [facility] 01/05/24 Mona Morley NP [address] [place] [address] Nurse Practitioner Family Medicine 04/09/23 Anitra Yap NP [address] [place] [address] Nurse Practitioner Pulmonary Disease 04/09/23 Gaurav Cline [facility] [address] [place] [address] [facility] 10/19/24 Kenney De La O, AGRICULTURAL CROP FARM MANAGER-BIOLOGY MANAGER [address] [facility] [address] [place] [address] Nurse Practitioner Psychiatry 10/19/24 Pacu Nurse Relationship Specialty Start Date End Date Connor Pineda MD [address] [place] [address] PCP - General Family Medicine 03/14/23 Mona Morley, [employer] CONDITIONING MECHANIC [address] [place] [id number] PCP - [facility] 01/05/24 Mona Morley, [employer] CONDITIONING MECHANIC [address] [place] [address] Nurse Practitioner Family Medicine 04/09/23 Anitra Yap, [employer] CONDITIONING MECHANIC [address] [place] [address] Nurse Practitioner Pulmonary Disease 04/09/23 Gaurav Cline, [facility] [address] [facility] [address] [place] [address] [facility] 10/19/24 Kenney De La O, AGRICULTURAL CROP FARM MANAGER-BIOLOGY MANAGER [address] [facility] [address] [place] [address] Nurse Practitioner Psychiatry 10/19/24 Pacu Nurse Relationship Specialty Start Date End Date Connor Pineda MD [address] [place] [address] PCP - General Family Medicine 03/14/23 Mona Morley, W[employer]IT AIR CONDITIONING MECHANIC [address] [place] [address] PCP - [facility] 01/05/24 Mona Morley, [employer]IT AIR CONDITIONING MECHANIC [address] [place] [address] Nurse Practitioner Family Medicine 04/09/23 Anitra Yap, [employer] AIR CONDITIONING MECHANIC [address] [place] [address] Nurse Practitioner Pulmonary Disease 04/09/23 Gaurav Cline, [facility] [address] [place] [address] [facility] 10/19/24 Kenney De La O, AGRICULTURAL CROP FARM MANAGER-BIOLOGY MANAGER [address] [address] Nurse Practitioner Psychiatry 10/19/24 Pacu Nurse Relationship Specialty Start Date End Date Connor Pineda MD [address] [place] [address] PCP - General Family Medicine 03/14/23 Mona Morley, W[employer] AIR CONDITIONING MECHANIC [address] [place] [address] PCP - [facility] 01/05/24 Mona Morley, RADHA [address] [place] [address] Nurse Practitioner Family Medicine 04/09/23 Anitra Yap, [employer] AIR CONDITIONING MECHANIC [address] [place] [address] Nurse Practitioner Pulmonary Disease 04/09/23 Gaurav Cline, [facility] [address] [place] [address] [facility] 10/19/24 Kenney De La O, AGRICULTURAL CROP FARM MANAGER-BIOLOGY MANAGER [address] [facility] [address] [place] [address] Nurse Practitioner Psychiatry 10/19/24 Pacu Nurse Relationship Specialty Start Date End Date Connor Pineda MD [address] [place] [id number] PCP - General Family Medicine 03/14/23 Mona Morley, RADHA [address] [place] [phone] PCP - [facility] 01/05/24 Mona Morley, RADHA [address] [place] [address] Nurse Practitioner Family Medicine 04/09/23 Anitra Yap, [employer] CONDITIONING MECHANIC [address] [place] [address] Nurse Practitioner Pulmonary Disease 04/09/23 Gaurav Cline, [facility] [address] [place] [address] [facility] 10/19/24 Kenney De La O, AGRICULTURAL CROP FARM MANAGER-BIOLOGY MANAGER [address] [place] [address] Nurse Practitioner Psychiatry 10/19/24 Pacu Nurse Relationship Specialty Start Date End Date Connor Pineda MD [address] [place] [address] PCP - General Family Medicine 03/14/23 Mona Morley NP [address] [place] [address] [facility] 01/05/24 Anitra Yap NP [address] [place] [address] Nurse Practitioner Pulmonary Disease 04/09/23 Gaurav Cline, [facility] [address] [place] [address] [facility] 10/19/24 Kenney De La O, AGRICULTURAL CROP FARM MANAGER-BIOLOGY MANAGER [address] [place] [address] Nurse Practitioner Psychiatry 10/19/24 Pacu Nurse Relationship Specialty Start Date End Date Connor Pineda MD [address] [place] [address] PCP - General Family Medicine 03/14/23 Mona Morley, W[employer]IT AIR CONDITIONING MECHANIC [address] [place] [address] PCP - [facility] 01/05/24 Anitra Yap, [employer]IT AIR CONDITIONING MECHANIC [address] [place] [address] Nurse Practitioner Pulmonary Disease 04/09/23 Gaurav Cline, [facility] [address] [place] [address] [facility] 10/19/24 Kenney De La O, AGRICULTURAL CROP FARM MANAGER-BIOLOGY MANAGER [address] [place] [address] Nurse Practitioner Psychiatry 10/19/24 Goals (unrecognized section and content) Goals may be documented in a n alternate sectionGoals may be documented in an alternate sectionGoals may be documented in an alternate sectionGoals may be documented in an alternate sectionNo InformationGoals may be documented in an alternate section No data available for this section No data available for this section No data available for this sectionGoals may be documented in an alternate section No data available for this section No data available for this section No data available for this section REASON FOR VISIT (unrecogniz ed section and content) Reason Comments Follow-up Reason Comments Med Management Follow-up Just found out he mi ght have have prostate cancer. Going through the testing process. Feels good with where his meds are at. Reason Comments Med Management Follow-up Needs refill Seroque l. Reports he feels a difference with meds it getting out more. Is still having anxiety but feels there is room improvement and growth of Zoloft. Reason Comments Appointment New patient call lef t message Reason Comments Consult Reason Comments Radiology XR Specialty Diagnoses / Procedures Referred By Contac t Referred To Contact XR IMAGING Diagnoses Chronic bilateral low back pain without sciatica Lumbar radiculitis Procedures XR LUMBAR MOTION 4V AP/LAT/ FLEX/EXT RADEX SPINE LUMBOSACRAL MINIMUM 4 VIEWS Marcela Mayen MD [address] [place] [address] [place] [address] Referral ID Status Reason Start Date Expiration Date V isits Requested Visits Authorized [id number] Closed Auto-Generate d Referral 10/08/2024 11/07/2025 1 1 Reason Comments Med Management Follow-up Source Comments (unrecognize d section and content) In the event this informatio n is protected by the Federal Confidentiality of Alcohol and Drug Abuse Patient Records regulations: The Federal rules restrict any use of the information to criminally investigate or prosecute any alcohol or drug abuse patient.[facility] the event this information is protected by the Federal Confidentiality of Alcohol and Drug Abuse Patient Records regulations: The Federal rules restrict any use of the information to criminally investigate or prosecute any alcohol or drug abuse patient.[facility] the event this information is protected by the Federal Confidentiality of Alcohol and Drug Abuse Patient Records regulations: The Federal rules restrict any use of the information to criminally investigate or prosecute any alcohol or drug abuse patient.[facility] FOR RECORDS PERTAINING TO PATIENTS WHO ARE OR HAVE BEEN ENROLLED IN A CHEMICAL DEPENDENCY/SUBSTANCEABUSE PROGRAM, SOME INFORMATION MAY BE OMITTED. This clinical summary was aggregated from multiple sources. Caution should be exercised in using it in the provision of clinical care. This summary normalizes information from multiple sources, and as a consequence, information in this document may materially change the coding, format and clinical context of patient data. In addition, data may be omitted in some cases. CLINICAL DECISIONS SHOULD BE BASED ON THE PRIMARY CLINICAL RECORDS. [facility], [facility]. provides no warranty or guarantee of the accuracy or completeness of information in this document.
[2025-01-21] MEDS: ONDANSETRON PF 4 MG/2 ML VIAL IV ×2 (02:43→04:19)
[2025-01-21] MEDS: KETOROLAC TROMETHAMINE 30 MG/ML VIAL IVP (02:43)
[2025-01-21] MEDS: FAMOTIDINE/PF 20 MG/2 ML VIAL IV (02:43)
[2025-01-21] MEDS: 0.9 % SODIUM CHLORIDE 1,000 ML 1000 ML IV ×2 (02:43→04:19)
--- NOTE | 2025-01-21 02:56 | ED_ITS ---
HPI - Nausea/Vomiting/Diarrhea General Chief complaint: Nausea/Vomiting/Diarrhea Stated complaint: WEAKNESS Time Seen by Provider: 01/21/25 02:07 Source: patient Mode of arrival: ambulance Limitations: no limitations History of Present Illness HPI Narrative: This 44-year-old male was brought to the emergency department by EMS from home for evaluation of nausea vomiting and abdominal pain that started around 6 PM last night. He has had multiple episodes of vomiting and upon arrival is having dry heaves. He complains of severe generalized weakness and generalized abdominal pain. He has not had any diarrhea. He has been having bowel movements. He has not had a fever. He denies any chest pain or shortness of breath he was given Reglan by EMS with mild clinical improvement but is still having dry heaves upon arrival. He states he has had 7 hernia surgeries in the past. Related Data Previous Rx's ?Medication ?Instructions ?Recorded ondansetron 4 mg disintegrating 4 mg PO Q6H PRN nausea and 09/06/24 tablet vomiting #10 tabs Allergies Allergy/AdvReac Type Severity Reaction Status Date / Time hydrocodone Allergy Mild Hives Verified 01/21/25 02:04 antihistamines Allergy Mild Hives Uncoded 01/21/25 02:04 Review of Systems ROS Status of ROS 10 or more systems reviewed and unremark able except as noted in history and below PFSH PFS Social History Little interest or pleasure in doing things: not at all Feeling down, depressed, or hopeless: not at all Exam Narrative Exam Narrative: Vital signs and Nursing Notes reviewed: Is afebrile with a normal pulse, blood pressure is elevated 181/119, he is not hypoxic with pulse ox of 100% on room air General: Awake, alert, oriented, vomiting clear emesis and sitting at the end of the bed, no respiratory distress HEENT: Normocephalic atraumatic, mucous membranes are moist and pink, eyes are clear, normal conjunctiva, vision is grossly intact Chest: Lungs are clear to auscultation with good air entry, there is no wheezing rhonchi or rales appreciated no accessory muscle use, patient is speaking in complete sentences-no chest wall tenderness to palpation CVS: Regular rate and rhythm S1-S2, no murmurs rubs or gallops, pulses are brisk and equal bilaterally ABD: Soft, nondistended, diffusely tender with generalized guarding, bowel sound s are normal, patient with dry heaves and clear emesis Extremities: Moving all extremities, no lower extremity tenderness or swelling noted Skin: Normal in appearance without rash,pallor, petechiae or purpura Neuro: No focal deficits Constitutional Vital Signs, click to edit/add: Last Vital Signs Temp 98.5 F 01/21/25 02:02 Pulse 84 01/21/25 02:02 Resp 18 01/21/25 02:02 BP 183/113 H 01/21/25 06:32 Pulse Ox 100 01/21/25 02:02 O2 Del Method Room Air 01/21/25 02:02 Course Vital Signs Vital signs: Vital Signs Temperature 98.5 F 01/21/25 02:02 Pulse Rate 84 01/21/25 02:02 Respiratory Rate 18 01/21/25 02:02 Blood Pressure 181/119 H 01/21/25 02:02 Pulse Oximetry 100 01/21/25 02:02 Oxygen Delivery Method Room Air 01/21/25 02:02 Temperature 98.5 F 01/21/25 02:02 Pulse Rate 84 01/21/25 02:02 Respiratory Rate 18 01/21/25 02:02 Blood Pressure 183/113 H 01/21/25 06:32 Pulse Oximetry 100 01/21/25 02:02 Oxygen Delivery Method Room Air 01/21/25 02:02 MDM - Nausea/Vomiting/Diarrhea MDM Narrative Medical decision making narrative: This 44-year-old male with a history of hypertension and 7 hernia surgeries in the past presents for evaluation of nausea and vomiting since 6 PM. He also complained of generalized weakness and EMS was called. Upon arrival he was dry heaving and vomiting clear phlegm. He complained of severe abdominal pain. His abdomen was soft. He had several trips to the bathroom to urinate after being given IV fluids. He had been given Reglan prior to arrival with minimal improvement. He was given additional IV fluids in the emergency department as well as Toradol, Zofran and Pepcid. He denied that this helped his pain at all and was given a dose of IV Dilaudid and additional Zofran with clinical improvement. He has a normal white count and hemoglobin. Electrolytes and liver function tests are normal. Lipase is minimally elevated at 102. X-ray of the chest and abdomen was ordered. There is no acute pulmonary infiltrate. He has a nonspecific bowel gas pattern with a moderate amount of stool but no sign of bowel obstruction or air-fluid levels. Urine is negative for infection. He was noted to have an elevated blood pressure and was given 10 mg of IV labetalol. After his IV Dilaudid he was feeling better and resting comfortably and tolerating ice chips but then had recurrence of his pain and is rocking back and forth on the bed. He ultimately settled down and his nausea vomiting resolved. His blood pressure was remained high and he was given additional dose of IV labetalol prior to discharge. He will be discharged home with a dose of Zofran and prescriptions for Zofran and Pepcid will be given to him at the time of discharge. Lab Data Labs: Lab Results 01/21/25 01/21/25 Range/Units 02:45 03:35 WBC 9.0 (4.0-11.0) 10^3/uL RBC 5.57 (4.70-6.10) 10^6/uL Hgb 15.4 (14.0-18.0) g/dL Hct 46.9 (42.0-54.0) % MCV 84.2 (80.0-94.0) fL MCH 27.6 (25.9-34.0) pg MCHC 32.8 (29.9-35.2) g/dL RDW 16.0 H (11.0-15.0) % Plt Count 318 (150-450) 10^3/uL MPV 10.0 (9.5-13.5) fL Neut % (Auto) 70.0 (43.0-75.0) % Lymph % (Auto) 20.0 L (20.5-60.0) % [place] % (Auto) 7.8 (1.7-12.0) % Eos % (Auto) 0.6 L (0.9-7.0) % Baso % (Auto) 0.3 (0.2-2.0) % Neut # (Auto) 6.3 (1.4-6.5) 10^3/uL Lymph # (Auto) 1.8 (1.2-3.8) 10^3/uL [place] # (Auto) 0.7 (0.3-0.8) 10^3/uL Eos # (Auto) 0.1 (0.0-0.7) 10^3/uL Baso # (Auto) 0.0 (0.0-0.1) 10^3/uL Abs Immat Gran (auto) 0.12 H (0.00-0.03) 10^3/uL Imm/Tot Granulo (auto) 1.3 H (0.0-0.5) % Sodium 143 (136-145) mmol/L Potassium 3.7 (3.5-5.1) mmol/L Chloride 103 (98-107) mmol/L Carbon Dioxide 27.9 (21.0-32.0) mmol/L Anion Gap 15.8 BUN 13.0 (7.0-18.0) mg/dL Creatinine 1.32 H (0.70-1.30) mg/dL Est GFR ( Amer) >60 (>=60 mL/min/1.73m^2) Est GFR (Non-Af Amer) 59 L (>=60 mL/min/1.73m^2) BUN/Creatinine Ratio 9.8 Glucose 110 H (74-106) mg/dL Calcium 9.0 (8.5-10.1) mg/dL Total Bilirubin 0.5 (0.2-1.0) mg/dL AST 24 (15-37) U/L ALT 48 (16-63) U/L Alkaline Phosphatase 124 H (46-116) U/L Total Protein 8.1 (6.4-8.2) g/dL Albumin 4.3 (3.4-5.0) g/dL Globulin 3.8 g/dL Albumin/Globulin Ratio 1.1 Lipase 102.0 H (16.0-77.0) U/L Urine Color Lt. yellow (YELLOW) Urine Clarity Clear (CLEAR) Urine pH 8.0 (5.0-9.0) Ur Specific [place] 1.020 (1.005-1.025) Urine Protein Negative (NEG/TRACE) mg/dL Urine Glucose (UA) Negative (NEGATIVE) mg/dL Urine Ketones Negative (NEGATIVE) mg/dL Urine Occult Blood Negative (NEGATIVE) Urine Nitrite Negative (NEGATIVE) Urine Bilirubin Negative (NEGATIVE) Urine Urobilinogen 0.2 (0.2-1.0) EU/dL Ur Leukocyte Esterase Negative (NEGATIVE) Urine RBC 0-2 (0-2) #/HPF Urine WBC 0-2 A (NONE SEEN) #/HPF Ur Squamous Epith Cells Rare (NONE/RARE) #/LPF Urine Crystals None seen (None Seen) #/HPF Urine Bacteria Trace A (NONE SEEN) #/HPF Urine Casts None seen (NONE SEEN) #/LPF Urine Mucus None seen (NONE SEEN) Ur Culture Indicated? No Discharge Plan Discharge Chief Complaint: Nausea/Vomiting/Diarrhea Clinical Impression: Nausea and vomiting, Gastroenteritis, Hypertension Patient Disposition: Home, Self-Care Time of Disposition Decision: 06:37 Prescriptions / Home Meds: No Action ondansetron 4 mg tablet,disintegrating 4 mg PO Q6H PRN (Reason: nausea and vomiting) Qty: 10 0RF Print Language: [place] Instructions: Acute Nausea and Vomiting (ED), Hypertension (ED) Referrals: ELROY VIVAS [Primary Care Provider] - 1 week
[2025-01-21 03:55] LABS: Basophils Percent Auto 0.3 % (0.2-2.0); Eosinophils Absolute Auto 0.1 10^3/uL (0.0-0.7); Eosinophils Percent Auto 0.6 % (0.9-7.0); Hematocrit 46.9 % (42.0-54.0); Hemoglobin 15.4 g/dL (14.0-18.0); Immature Granulocytes Abs Auto 0.12 10^3/uL (0.00-0.03); Immature Granulocytes Pct Auto 1.3 % (0.0-0.5); Lymphocytes Absolute Auto 1.8 10^3/uL (1.2-3.8); Mean Corpuscular HGB Conc 32.8 g/dL (29.9-35.2); Mean Corpuscular Hemoglobin 27.6 pg (25.9-34.0); Mean Corpuscular Volume 84.2 fL (80.0-94.0); Monocytes Absolute Auto 0.7 10^3/uL (0.3-0.8); Monocytes Percent Auto 7.8 % (1.7-12.0); Neutrophils Absolute Auto 6.3 10^3/uL (1.4-6.5); Platelet Count 318 10^3/uL (150-450); Red Blood Count 5.57 10^6/uL (4.70-6.10)
[2025-01-21 03:56] LABS: Alanine Aminotransferase 48 U/L (16-63); Albumin Globulin Ratio 1.1; Albumin Level 4.3 g/dL (3.4-5.0); Alkaline Phosphatase 124 U/L (46-116); Anion Gap 15.8; Aspartate Amino Transferase 24 U/L (15-37); BUN Creatinine Ratio 9.8; Bilirubin Total 0.5 mg/dL (0.2-1.0); Carbon Dioxide 27.9 mmol/L (21.0-32.0); Chloride 103 mmol/L (98-107); Estimated GFR (African America >60 (>=60 mL/min/1.73m^2); Estimated GFR (Non-African Ame 59 (>=60 mL/min/1.73m^2); Globulin 3.8 g/dL; Glucose 110 mg/dL (74-106); Potassium 3.7 mmol/L (3.5-5.1); Sodium 143 mmol/L (136-145); Total Protein 8.1 g/dL (6.4-8.2)
[2025-01-21 04:03] LABS: Bilirubin Urine NEGATIVE (NEGATIVE); Blood Urine NEGATIVE (NEGATIVE); Clarity Urine CLEAR (CLEAR); Color Urine LT. YELLOW (YELLOW); Glucose Urine UA NEGATIVE (NEGATIVE); Ketones Urine NEGATIVE (NEGATIVE); Leukocyte Esterase Urine NEGATIVE (NEGATIVE); Nitrite Urine NEGATIVE (NEGATIVE); Protein Urine NEGATIVE (NEG/TRACE); Urobilinogen Urine 0.2 EU/dL (0.2-1.0)
[2025-01-21 04:09] LABS: Bacteria Urine TRACE #/HPF (NONE SEEN); Cast Seen? NONE SEEN #/LPF (NONE SEEN); Crystals Seen? None Seen #/HPF (None Seen); Mucus Urine NONE SEEN (NONE SEEN); RBC Urine 0-2 #/HPF (0-2); Squamous Epithelial Cell Urine RARE #/LPF (NONE/RARE); Urine Culture Indicated NO; WBC Urine 0-2 #/HPF (NONE SEEN)
[2025-01-21] MEDS: HYDROMORPHONE HCL 1 MG/ML CARTRIDGE IV (04:19)
[2025-01-21 04:42] VITALS: BP 208/112
[2025-01-21] MEDS: LABETALOL HCL 20 MG/4 ML SYRINGE 10 MG IVP ×2 (04:54→06:49)
[2025-01-21 05:39] VITALS: BP 192/127
[2025-01-21 06:32] VITALS: BP 183/113
[2025-01-21] MEDS: ONDANSETRON 4 MG RAPDIS TABLET SL (06:49)
== END 2025-01-21 06:54 | disposition home or self-care (01) ==
PROVIDERS: Emergency Provider Emergency Medicine; PCP Family Medicine
DX: K52.9 Noninfective gastroenteritis and colitis, unspecified (principal); I10 Essential (primary) hypertension; R11.2 Nausea with vomiting, unspecified; R10.84 Generalized abdominal pain
CPT/HCPCS: 36415; 74022; 80053; 81001; 83690; 85025; 96361; 96374; 96375; 96376; 99284; J1171; J1885; J1920; J2405; J3490; Q0162